=== PATIENT | female | born 1945 | race Caucasian/White ===

== ENCOUNTER 2017-10-17 08:03 | Inpatient (IN) | payer OTHER, MEDICARE ==
[~2017-10-17] VITALS: Ht 167.6 cm; Wt 68.0 kg
[2017-10-17] VITALS (67 sets, daily range): BP systolic 140–231; BP diastolic 49–115; PULSE 80–118; RESP 16–96; TEMP 96.9–105; O2SAT 93–99
--- NOTE | 2017-10-17 08:29 | PD ---
HPI Chief Complaint: Neuro Symptoms/ Deficits Time Seen by Provider: 08:18 Travel History International Travel<30 days: No Contact w/Intl Traveler<30days: No Traveled to known affect area: No History of Present Illness HPI 72-year-old female was brought in by EMS for possible stroke. Patient was last seen normal at 8:00 o'clock last night. Patient was found by her on the couch this morning moaning and not responding to her . EMS was called. Patient was transported to ED for evaluation. Patient's states the patient has history hypertension, diabetes, hyperlipidemia. Patient is a smoker. Patient does not have any history of previous TIA or CVA. No reported recent injury. Patient opened her eyes however not responding or not providing any information. PFSH Past Medical History ?: Not Social History Tobacco Use: No Allergies-Medications (Allergen,Severity, Reaction): Coded Allergies: Penicillins (Verified Allergy, Unknown, Unknown, 10/17/17) Reported Meds & Prescriptions Reported Meds & Active Scripts Active Reported Verapamil (Verapamil HCl) 120 Mg Tab 120 Mg PO BID Metformin (Metformin HCl) 1,000 Mg Tab 1,000 Mg PO BIDPC Atenolol 25 Mg Tab 25 Mg PO DAILY Losartan (Losartan Potassium) 100 Mg Tab 100 Mg PO DAILY Doxycycline Hyclate 100 Mg Cap 100 Mg PO BID Review of Systems ROS Limitations: Altered Mental Status General / Constitutional: No: Fever Eyes: No: Visual changes HENT: No: Headaches Cardiovascular: No: Chest Pain or Discomfort Respiratory: No: Shortness of Breath Gastrointestinal: No: Abdominal Pain Genitourinary: No: Dysuria Musculoskeletal: No: Pain Skin: No Rash Neurologic: No: Weakness Psychiatric: No: Depression Endocrine: No: Polydipsia Hematologic/Lymphatic: No: Easy Bruising Physical Exam Narrative GENERAL: Well-nourished, well-developed patient. SKIN: Focused skin assessment warm/dry. HEAD: Normocephalic. EYES: No scleral icterus. No injection or drainage. Right pupil 1.5 mm reactive. Left pupil 1 mm nonreactive. NECK: Supple, trachea midline. No JVD or lymphadenopathy. CARDIOVASCULAR: Regular rate and rhythm without murmurs, gallops, or rubs. RESPIRATORY: Breath sounds equal bilaterally. No accessory muscle use. GASTROINTESTINAL: Abdomen soft, non-tender, nondistended. MUSCULOSKELETAL: No cyanosis, or edema. BACK: Nontender without obvious deformity. No CVA tenderness. Neurologic exam: Patient lying in bed with eyes open. Patient does not follow commands. Patient is aphasic. Patient has right-sided facial drooping. Patient has no movement on the right arm or the right leg with minimal movement of the right toes. Patient has movement on the left arm and left leg with painful stimuli. Positive Babinski right foot. Data Data Last Documented VS Vital Signs Date Time Temp Pulse Resp B/P (MAP) Pulse Ox O2 Delivery O2 Flow Rate FiO2 10/17/17 09:34 80 18 204/85 (124) 97 Room Air 10/17/17 09:30 2.00 10/17/17 08:05 97.5 Orders Orders Blood Glucose (10/17/17 08:05) Oximetry (10/17/17 08:05) Iv Access Insert/Monitor (10/17/17 08:05) Ecg Monitoring (10/17/17 08:05) Oxygen Administration (10/17/17 08:05) Complete Blood Count With Diff (10/17/17 08:05) Act Partial Throm Time (Ptt) (10/17/17 08:05) Prothrombin Time / Inr (Pt) (10/17/17 08:05) Basic Metabolic Panel (Bmp) (10/17/17 08:05) Urinalysis - C+S If Indicated (10/17/17 08:05) Electrocardiogram (10/17/17 08:18) Chest, Single Ap (10/17/17 08:18) Ct Brain W/O Iv Contrast(Rout) (10/17/17 08:18) Urinary Catheter Insert/Apply (10/17/17 08:18) Hepatic Functional Panel (10/17/17 08:05) Magnesium (Mg) (10/17/17 08:05) Phosphorus (Po4) (10/17/17 08:05) Thyroid Stimulating Hormone (10/17/17 08:05) Nicardipine Inj (Cardene Inj) (10/17/17 08:45) Aspirin Supp (Aspirin Supp) (10/17/17 09:30) Mri Brain W/O Contrast (10/17/17 09:34) Mra Brain W/O Contrast (Cow) (10/17/17 09:34) Mra Carotids W Contrast (10/17/17 09:34) Consult Neurology (10/17/17 ) Admit To Inpatient (10/17/17 ) Nih Stroke Scale - Nihss .On admission and discharge (10/17/17 09:33) Ot Request For Service (10/17/17 09:33) Activity Bed Rest (10/17/17 09:33) Nursing Bedside Swallow Assess .ONCE (10/17/17 09:33) Scd Bilateral/Knee High KIRSTEN.QSHIFT (10/17/17 09:33) Diet Npo (10/17/17 Breakfast) Hemoglobin (Hgb) A1c (10/17/17 09:33) Lipid Profile (10/18/17 06:00) Resp Oxygen Nc Stroke (10/17/17 ) ^ Hold Medication (10/17/17 09:33) Sodium Chloride 0.9% Flush (Ns Flush) (10/17/17 21:00) Sodium Chloride 0.9% Flush (Ns Flush) (10/17/17 09:45) Bedside Glucose KIRSTEN.CSUGAR (10/17/17 09:33) ^ Discontinue Insulin Orders (10/17/17 09:33) Insulin Aspart Supplemtl Scale (Novolog (10/17/17 12:00) Dextrose 50% In López (Vial) Inj (D50w (Vi (10/17/17 09:45) Glucagon Inj (Glucagon Inj) (10/17/17 09:45) Gasoline Pump Installer / Telemetry KIRSTEN.Q8H (10/17/17 09:33) Inpatient Certification (10/17/17 ) Atorvastatin (Lipitor) (10/18/17 21:00) Atorvastatin (Lipitor) (10/17/17 11:00) Admit Order (Ed Use Only) (10/17/17 09:36) ^ Fall Precautions (10/17/17 09:36) Basic Metabolic Panel (Bmp) (10/18/17 06:00) Echo 2d Comp With Doppler (10/18/17 ) Labs Laboratory Tests Test 10/17/17 08:20 10/17/17 09:00 White Blood Count 12.2 TH/MM3 Red Blood Count 4.30 MIL/MM3 Hemoglobin 13.2 GM/DL Hematocrit 39.7 % Mean Corpuscular Volume 92.2 FL Mean Corpuscular Hemoglobin 30.8 PG Mean Corpuscular Hemoglobin Concent 33.3 % Red Cell Distribution Width 12.4 % Platelet Count 313 TH/MM3 Mean Platelet Volume 8.6 FL Neutrophils (%) (Auto) 73.6 % Lymphocytes (%) (Auto) 18.6 % Monocytes (%) (Auto) 6.5 % Eosinophils (%) (Auto) 0.7 % Basophils (%) (Auto) 0.6 % Neutrophils # (Auto) 8.9 TH/MM3 Lymphocytes # (Auto) 2.3 TH/MM3 Monocytes # (Auto) 0.8 TH/MM3 Eosinophils # (Auto) 0.1 TH/MM3 Basophils # (Auto) 0.1 TH/MM3 CBC Comment DIFF FINAL Differential Comment Prothrombin Time 10.9 SEC Prothromb Time International Ratio 1.1 RATIO Activated Partial Thromboplast Time 23.4 SEC Blood Urea Nitrogen 13 MG/DL Creatinine 1.20 MG/DL Random Glucose 205 MG/DL Total Protein 7.3 GM/DL Albumin 3.7 GM/DL Calcium Level 8.7 MG/DL Phosphorus Level 3.3 MG/DL Magnesium Level 1.8 MG/DL Alkaline Phosphatase 84 U/L Aspartate Amino Transf (AST/SGOT) 33 U/L Alanine Aminotransferase (ALT/SGPT) 29 U/L Total Bilirubin 0.4 MG/DL Direct Bilirubin 0.1 MG/DL Sodium Level 128 MEQ/L Potassium Level 4.6 MEQ/L Chloride Level 94 MEQ/L Carbon Dioxide Level 24.2 MEQ/L Anion Gap 10 MEQ/L Estimat Glomerular Filtration Rate 44 ML/MIN Hemoglobin A1c 7.8 % Indirect Bilirubin 0.3 MG/DL Thyroid Stimulating Hormone 3rd Gen 3.110 uIU/ML Urine Collection Type CLEAN CATCH Urine Color YELLOW Urine Turbidity CLEAR Urine pH 7.5 Urine Specific [place] 1.014 Urine Protein TRACE mg/dL Urine Glucose (UA) 250 mg/dL Urine Ketones NEG mg/dL Urine Occult Blood TRACE Urine Nitrite NEG Urine Bilirubin NEG Urine Leukocyte Esterase NEG Urine RBC 0-3 /hpf Urine WBC 0-2 /hpf Urine Squamous Epithelial Cells 0-5 /hpf Microscopic Urinalysis Comment CULT NOT INDICATED MDM Medical Decision Making Medical Screen Exam Complete: Yes Emergency Medical Condition: Yes Interpretation(s) Last Impressions Head CT 10/17/17 0818 Signed Impressions: Service Date/Time: Tuesday, October 17, 2017 08:51 - CONCLUSION: There is asymmetric increased density involving the left MCA as compared to the right. Concern for acute thrombosis. However, no secondary signs of infarct are seen. Consider MRI for further evaluation. Mary Jane Caballero MD Chest X-Ray 10/17/17 0818 Signed Impressions: Service Date/Time: Tuesday, October 17, 2017 08:27 - CONCLUSION: Abnormal lung exam concerning for acute bronchiolitis or interstitial edema the Mary Jane Caballero MD CBC WBC 12.2. 73 neutrophil. Sodium 128. Creatinine 1.2. Random glucose 205. UA is negative. Differential Diagnosis Differential diagnosis including acute TIA, CVA. Narrative Course 72-year-old female with aphasia, right-sided weakness. Patient was found on the couch by her This morning. History hypertension, diabetes, hyperlipidemia. Patient is not a candidate for TPA. Normal saline solution 100 cc an hour. O2 2 L nasal cannula. Head of bed flat. Aspirin 300 mg suppository. Cardene drip to keep systolic blood pressure less than 200. I spoke with neurologist on-call, Dr. Vazquez. Agreed with the plan. Diagnosis Primary Impression: Acute CVA (cerebrovascular accident) Admitting Information Admitting Physician Requests: Admit Antonio Feliciano MD Oct 17, 2017 08:29
[2017-10-17] MEDS ORDERED: DOXY100C PO (08:30)
[2017-10-17 08:38] LABS: AUTOMATED NEUTROPHIL # 8.9 TH/MM3 (1.8-7.7); BASOPHIL # 0.1 TH/MM3 (0-0.2); BASOPHIL % 0.6 % (0.0-2.0); EOSINOPHIL # 0.1 TH/MM3 (0-0.4); EOSINOPHIL % 0.7 % (0.0-4.0); HEMATOCRIT 39.7 % (35.0-46.0); HEMOGLOBIN 13.2 GM/DL (11.6-15.3); LYMPH % 18.6 % (9.0-44.0); LYMPHOCYTE # 2.3 TH/MM3 (1.0-4.8); MEAN CELL VOLUME 92.2 FL (80.0-100.0); MEAN CORPUSCULAR HEMOGLOBIN 30.8 PG (27.0-34.0); MEAN CORPUSCULAR HGB CONC 33.3 % (32.0-36.0); MEAN PLATELET VOLUME 8.6 FL (7.0-11.0); MONO % 6.5 % (0.0-8.0); MONOCYTE # 0.8 TH/MM3 (0-0.9); NEUT % 73.6 % (16.0-70.0); PLATELET COUNT 313 TH/MM3 (150-450); RED CELL DISTRIBUTION WIDTH 12.4 % (11.6-17.2); WHITE BLOOD COUNT 12.2 TH/MM3 (4.0-11.0)
--- NOTE | 2017-10-17 08:40 | RADRPT ---
EXAM DATE/TIME: 10/17/2017 08:27 [facility] COMPARISON: No previous studies available for comparison. INDICATIONS : Stoke symptoms, short of breath MEDICAL HISTORY : None. SURGICAL HISTORY : None. ENCOUNTER: Initial ACUITY: 1 day PAIN SCORE: Non-responsive. LOCATION: Bilateral chest FINDINGS: There is diffuse hazy asymmetric airspace opacities identified throughout the hemithorax concerning f or acute bronchiolitis or edema. The heart size is normal. The pulmonary vasculature appears grossly normal in caliber. Osseous structures demonstrate severe scoliosis. CONCLUSION: Abnormal lung exam concerning for acute bronchiolitis or interstitial edema the Mary Jane Caballero MD on October 17, 2017 at 8:36 Board Certified Radiologist. This report was verified electronically.
[2017-10-17] MEDS ORDERED: niCARdipine INJ 25 MG in SODIUM CHLOR 0.9% 250 ML INJ 240 ML IV PRN (08:45)
[2017-10-17 08:51] LABS: ALBUMIN 3.7 GM/DL (3.4-5.0); BICARBONATE 24.2 MEQ/L (21.0-32.0); CALCIUM 8.7 MG/DL (8.5-10.1); INTERNATIONAL NORMALIZED RATIO 1.1 RATIO; MAGNESIUM 1.8 MG/DL (1.5-2.5); PROTHROMBIN TIME - PATIENT 10.9 SEC (9.8-11.6)
[2017-10-17 08:54] LABS: CREATININE 1.2 MG/DL (0.50-1.00); DIRECT BILIRUBIN ADULT 0.1 MG/DL (0.0-0.2); PHOSPHORUS 3.3 MG/DL (2.5-4.9)
[2017-10-17 08:56] LABS: INDIRECT BILIRUBIN 0.3 MG/DL (0.0-0.8); TOTAL BILIRUBIN ADULT 0.4 MG/DL (0.2-1.0); TOTAL PROTEIN 7.3 GM/DL (6.4-8.2)
--- NOTE | 2017-10-17 09:14 | RADRPT ---
EXAM DATE/TIME: 10/17/2017 08:51 [facility] COMPARISON: No previous studies available for comparison. INDICATIONS : Suspect CVA, last seen normal 20:00, non verbal gaze to left, right facial droop. RADIATION DOSE: 61.30 CTDIvol (mGy) MEDICAL HISTORY : Diabetes, HTN, smoker SURGICAL HISTORY : Non-responsive. unobtainable ENCOUNTER: Initial ACUITY: 1 day PAIN SCALE: 0/10 LOCATION: cranial TECHNIQUE: Multiple contiguous axial images were obtained of the head. Using automated exposure control and adj ustment of the mA and/or kV according to patient size, radiation dose was kept as low as reasonably a chievable to obtain optimal diagnostic quality images. DICOM format image data is available electro nically for review and comparison. FINDINGS: CEREBRUM: There is asymmetric density involving the left MCA seen on image 11. This is concerning for a left MC A infarct. The adjacent parenchyma demonstrates normal attenuation on this exam. No evidence of hypod ensity or sulcal effacement. No intra-axial or extra-axial fluid collection. No evidence of mass effe ct. POSTERIOR FOSSA: The cerebellum and brainstem are intact. The 4th ventricle is midline. The cerebellopontine angle i s unremarkable. EXTRACRANIAL: The visualized portion of the orbits is intact. Circumferential moderate left maxillary sinus mucosal thickening. SKULL: The calvaria is intact. No evidence of skull fracture. CONCLUSION: There is asymmetric increased density involving the left MCA as compared to the right . Concern for acute thrombosis. However, no secondary signs of infarct are seen. Consider MRI for fur ther evaluation. Mary Jane Caballero MD on October 17, 2017 at 9:08 Board Certified Radiologist. This report was verified electronically.
[2017-10-17] MEDS ORDERED: LOSA100T PO (09:15)
[2017-10-17] MEDS ORDERED: ATEN25TA PO (09:15)
[2017-10-17] MEDS ORDERED: METF1000 PO (09:15)
[2017-10-17] MEDS ORDERED: VERA120T3 PO (09:15)
[2017-10-17 09:21] LABS: BILIRUBIN, URINE NEG (NEG); BLOOD, URINE TRACE (NEG); GLUCOSE,URINE 250 mg/dL (NEG); KETONE, URINE NEG (NEG); NITRITE,URINE NEG (NEG); PH, URINE 7.5 (5.0-8.5); URINE LEUKOCYTE ESTERASE NEG (NEG)
[2017-10-17 09:27] LABS: URINE COLOR YELLOW (YELLW/STRAW)
[2017-10-17 09:28] LABS: RBC, URINE 0-3 /hpf (0-3); SQUAMOUS EPITHELIAL CELL URINE 0-5 /hpf (0-5); WBC, URINE 0-2 /hpf (0-5)
[2017-10-17] MEDS ORDERED: ASPIRIN 300 MG SUPP RECTAL ONE (09:30)
[2017-10-17] MEDS ORDERED: SODIUM CHLORIDE 0.9% FLUSH 10 ML FLUSH IV FLUSH PRN (09:45)
[2017-10-17] MEDS ORDERED: DEXTROSE 50% IN WATER 50 ML VIAL(D50) IV PUSH PRN (09:45)
[2017-10-17] MEDS ORDERED: GLUCAGON 1 MG/ML VIAL OTHER PRN (09:45)
--- NOTE | 2017-10-17 10:36 | HHI.HP ---
HPI Service [facility] Primary Care Physician Unknown Admission Diagnosis acute CVA Diagnoses: Chief Complaint: Moaning, not responsive Travel History International Travel<30 Days: No Contact w/Intl Traveler <30 Da: No Traveled to Known Affected Are: No History of Present Illness 72-year-old white female being admitted for suspected stroke. Patient was in her usual state of health until sometime this morning when her found her lying on the couch being almost motionless, slouched in a reclining position. He attempted to talk to her and stimulate her but she only moan in response. He says at the time she was moving around both of her legs but did not notice much movement in her arms. She did not verbalize any coherent speech nor follow any commands. Says he called the ambulance. Prior to this he says the patient denies any of these symptoms at all. She was last noted to be normal last night prior to going to bed. For the last week or so she has had a "head cold" and saw urgent care yesterday and had taken a prescribed dose of some antibiotic last night. Says that her sugars were noted to be in the 400s yesterday at the urgent care, but usually are in the 120s in the morning. Past medical history includes diabetes which is apparently controlled in the 100s. Family history significant for sister having cervical cancer. Social history significant that the patient has been smoking for about 20 years. Lives with her . Review of Systems Except as stated in HPI: all other systems reviewed are Neg Past Family Social History Allergies: Coded Allergies: Penicillins (Verified Allergy, Unknown, Unknown, 10/17/17) Physical Exam Vital Signs Vital Signs Date Time Temp Pulse Resp B/P (MAP) Pulse Ox O2 Delivery O2 Flow Rate FiO2 10/17/17 09:44 84 16 195/85 (121) 97 Nasal Cannula 2.00 10/17/17 09:39 84 16 198/89 (125) 97 Nasal Cannula 2.00 10/17/17 09:34 80 18 204/85 (124) 97 Room Air 10/17/17 09:30 80 18 188/78 (114) 97 Nasal Cannula 2.00 10/17/17 09:20 83 223/115 10/17/17 09:10 91 16 223/115 (151) 97 Nasal Cannula 2.00 10/17/17 08:15 96 18 231/98 (142) 93 Room Air 10/17/17 08:05 94 Room Air 10/17/17 08:05 94 Room Air 10/17/17 08:05 97.5 92 16 220/105 (143) 94 Physical Exam VS: afebrile GENERAL: lying in bed, moaning in distress SKIN: Warm and dry. EYES: No scleral icterus. No injection or drainage. Pupils reactive, symmetrical. ENT: No nasal bleeding or discharge. Mucous membranes pink and moist. CARDIOVASCULAR: Regular rate and rhythm. no murmurs RESPIRATORY: No accessory muscle use. Clear to auscultation. Breath sounds equal bilaterally. GASTROINTESTINAL: Abdomen soft, non-tender, nondistended. Extremities: No clubbing, cyanosis, or edema. No obvious deformities. MUSCULOSKELETAL: adequate muscle bulk and tone for age and habitus; NEUROLOGICAL: Not moving right lower extremity or right upper extremity, has a very minimal right-sided facial droop. Only able to follow very basic command of squeezing hand with left hand; this spontaneously moving her left upper and left lower extremity. Opens eyes to name but does not follow nor track. PSYCHIATRIC: Unable to assess due to neurological impairment Laboratory Laboratory Tests Test 10/17/17 08:20 10/17/17 09:00 White Blood Count 12.2 Red Blood Count 4.30 Hemoglobin 13.2 Hematocrit 39.7 Mean Corpuscular Volume 92.2 Mean Corpuscular Hemoglobin 30.8 Mean Corpuscular Hemoglobin Concent 33.3 Red Cell Distribution Width 12.4 Platelet Count 313 Mean Platelet Volume 8.6 Neutrophils (%) (Auto) 73.6 Lymphocytes (%) (Auto) 18.6 Monocytes (%) (Auto) 6.5 Eosinophils (%) (Auto) 0.7 Basophils (%) (Auto) 0.6 Neutrophils # (Auto) 8.9 Lymphocytes # (Auto) 2.3 Monocytes # (Auto) 0.8 Eosinophils # (Auto) 0.1 Basophils # (Auto) 0.1 CBC Comment DIFF FINAL Differential Comment Prothrombin Time 10.9 Prothromb Time International Ratio 1.1 Activated Partial Thromboplast Time 23.4 Blood Urea Nitrogen 13 Creatinine 1.20 Random Glucose 205 Total Protein 7.3 Albumin 3.7 Calcium Level 8.7 Phosphorus Level 3.3 Magnesium Level 1.8 Alkaline Phosphatase 84 Aspartate Amino Transf (AST/SGOT) 33 Alanine Aminotransferase (ALT/SGPT) 29 Total Bilirubin 0.4 Direct Bilirubin 0.1 Sodium Level 128 Potassium Level 4.6 Chloride Level 94 Carbon Dioxide Level 24.2 Anion Gap 10 Estimat Glomerular Filtration Rate 44 Indirect Bilirubin 0.3 Thyroid Stimulating Hormone 3rd Gen 3.110 Urine Collection Type CLEAN CATCH Urine Color YELLOW Urine Turbidity CLEAR Urine pH 7.5 Urine Specific [employer] 1.014 Urine Protein TRACE Urine Glucose (UA) 250 Urine Ketones NEG Urine Occult Blood TRACE Urine Nitrite NEG Urine Bilirubin NEG Urine Leukocyte Esterase NEG Urine RBC 0-3 Urine WBC 0-2 Urine Squamous Epithelial Cells 0-5 Microscopic Urinalysis Comment CULT NOT INDICATED Result Diagram: 10/17/1781910/17/17819 Imaging Last Impressions Head CT 10/17/17817 Signed Impressions: Service Date/Time: Tuesday, October 17, 2017 08:51 - CONCLUSION: There is asymmetric increased density involving the left MCA as compared to the right. Concern for acute thrombosis. However, no secondary signs of infarct are seen. Consider MRI for further evaluation. Mary Jane Caballero MD Chest X-Ray 10/17/17817 Signed Impressions: Service Date/Time: Tuesday, October 17, 2017 08:27 - CONCLUSION: Abnormal lung exam concerning for acute bronchiolitis or interstitial edema the MD Al Rush VTE Risk Assessment Caprini VTE Risk Assessment: Mod/High Risk (score >= 2) Caprini Risk Assessment Model Point Value = 1 Point Value = 2 Point Value = 3 Point Value = 5 Age 41-60 Minor surgery BMI > 25 kg/m2 Swollen legs Varicose veins or History of unexplained or recurrent spontaneous Oral contraceptives or hormone replacement Sepsis (< 1 month) Serious lung disease, including pneumonia (< 1 month) Abnormal pulmonary function Acute myocardial infarction Congestive heart failure (< 1 month) History of inflammatory bowel disease Medical patient at bed rest Age 61-74 Arthroscopic surgery Major open surgery (> 45 min) Laparoscopic surgery (> 45 min) Malignancy Confined to bed (> 72 hours) Immobilizing plaster cast Central venous access Age >= 75 History of VTE Family history of VTE Factor V Leiden Prothrombin 51189H Lupus anticoagulant Anticardiolipin antibodies Elevated serum homocysteine Heparin-induced thrombocytopenia Other congenital or acquired thrombophilia Stroke (< 1 month) Elective arthroplasty Hip, pelvis, or leg fracture Acute spinal cord injury (< 1 month) Prophylaxis Regimen Total Risk Factor Score Risk Level Prophylaxis Regimen 0-1 Low Early ambulation 2 Moderate Order ONE of the following: *Sequential Compression Device (SCD) *Heparin 5000 units SQ BID 3-4 Higher Order ONE of the following medications: *Heparin 5000 units SQ TID *Enoxaparin/Lovenox 40 mg SQ daily (WT < 150 kg, CrCl > 30 mL/min) *Enoxaparin/Lovenox 30 mg SQ daily (WT < 150 kg, CrCl > 10-29 mL/min) *Enoxaparin/Lovenox 30 mg SQ BID (WT < 150 kg, CrCl > 30 mL/min) AND/OR *Sequential Compression Device (SCD) 5 or more Highest Order ONE of the following medications: *Heparin 5000 units SQ TID (Preferred with Epidurals) *Enoxaparin/Lovenox 40 mg SQ daily (WT < 150 kg, CrCl > 30 mL/min) *Enoxaparin/Lovenox 30 mg SQ daily (WT < 150 kg, CrCl > 10-29 mL/min) *Enoxaparin/Lovenox 30 mg SQ BID (WT < 150 kg, CrCl > 30 mL/min) AND *Sequential Compression Device (SCD) Assessment and Plan Assessment and Plan 72-year-old white female being admitted for suspected stroke Suspected stroke - CT showing possible stroke, MRI and MRA ordered per neurology recs - fall precautions, permissive HTN, CTA carotids, and echo - rectal aspirin - bedside swallow assessment; pt/st/ot eval - pending EKG - I independently reviewed EKG and see sinus rhythm - telemetry, maybe a candidate for holter monitor to evaluate for any afib head cold - I independently reviewed chest x-ray and see very minimal faint infiltrates over the interstitium; continue doxycycline via IV for now; if procalcitonin is neg; stopping abx. DM - LDSS SCDs Discussed assessment and plan with at length, informed him that the patient may not be able to tolerate by mouth intake for the next 24 hours, and if she has prolonged recovery from a by mouth intake, we will proceed with a nasogastric feeding tube. Physician Certification 2 Midnight Certification Type: Admission for Inpatient Services Order for Inpatient Services The services are ordered in accordance with Medicare regulations or non- Medicare payer requirements, as applicable. In the case of services not specified as inpatient-only, they are appropriately provided as inpatient services in accordance with the 2-midnight benchmark. Estimated LOS (days): 3 3 days is the estimated time the patient will need to remain in the hospital, assuming treatment plan goals are met and no additional complications. Post-Hospital Plan: Not yet determined Lei Arreguin MD Oct 17, 2017 10:36
[2017-10-17] MEDS ORDERED: ATORVASTATIN 40 MG TAB PO ONE (11:00)
[2017-10-17] MEDS ORDERED: CHLORHEXIDINE GLUCONATE 2 % 1 PACK (2 CLOTHS)(extra cloths) TOPICAL PRN (11:00)
[2017-10-17] MEDS ORDERED: GADOBENATE DIM PF 529 MG/ML 20ML VIAL (for RAD MRI) IV ONE (12:02)
--- NOTE | 2017-10-17 12:03 | RADRPT ---
EXAM DATE/TIME: 10/17/2017 11:17 [facility] COMPARISON: CT BRAIN W/O CONTRAST, October 17, 2017, 8:51. INDICATIONS : Unresponsive. MEDICAL HISTORY : Hypertension. Diabetes mellitus type 2. CVA. SURGICAL HISTORY : Cataract. ENCOUNTER: Initial ACUITY: 1 day PAIN SCORE: 0/10 LOCATION: cranial TECHNIQUE: Multiplanar, multisequence MRI of the brain was performed without contrast. FINDINGS: The calvarium appears intact. There is moderate motion artifact. The patient demonstrates midline str uctures and major anatomic landmarks correctly situated without intracranial hemorrhage or extracereb ral defect and no mass effect. There is deep white matter microvascular ischemic demyelinizati on and there is an acute infarct in the distribution of the left middle cerebral artery with diffusio n abnormality and mild T2-weighted flair abnormality. CONCLUSION: Acute left MCA stroke Raj Reinoso MD on October 17, 2017 at 11:58 Board Certified Radiologist. This report was verified electronically.
[2017-10-17] MEDS: DOXYCYCLINE INJ 100 MG in SODIUM CHLORIDE 0.9% INJ 100 ML IV SCH ×2 (12:05→23:39)
[2017-10-17] MEDS: INSULIN ASPART SUPPLEMENTAL SCALE SQ SCH ×3 (12:06→20:55)
[2017-10-17] MEDS: SODIUM CHLOR 0.9% 1000 ML INJ 1,000 ML IV SCH ×2 (12:06→23:14)
--- NOTE | 2017-10-17 12:14 | RADRPT ---
EXAM DATE/TIME: 10/17/2017 11:17 [facility] COMPARISON: No previous studies available for comparison. INDICATIONS : Unresponsive. MEDICAL HISTORY : Hypertension. Diabetes mellitus type 2. CVA. SURGICAL HISTORY : Cataract. ENCOUNTER: Initial ACUITY: 1 day PAIN SCORE: 0/10 LOCATION: cranial Please note a normal MRA of the brain does not entirely exclude the possibility of a small aneurysm, nor the possibility of distal intracranial vessel disease. TECHNIQUE: 3D time of flight MRA was performed. Source images, multiplanar STS MIP, and 3D volume MIP reconstru ctions were reviewed. FINDINGS: There is complete occlusion of the left MCA. The remainder of the cerebral vasculature is intact. No evidence of aneurysm. CONCLUSION: Complete occlusion of the left MCA corresponding with the hyperdense left MCA seen on comparison CT. Mary Jane Caballero MD on October 17, 2017 at 12:10 Board Certified Radiologist. This report was verified electronically.
--- NOTE | 2017-10-17 12:18 | RADRPT ---
EXAM DATE/TIME: 10/17/2017 11:17 [facility] COMPARISON: MRA BRAIN W/O CONTRAST, October 17, 2017, 11:17. INDICATIONS : Unresponsive. CONTRAST: 15 cc Multihance (gadobenate) IV MEDICAL HISTORY : Hypertension. Diabetes mellitus type 2. CVA. SURGICAL HISTORY : Cataract. ENCOUNTER: Initial ACUITY: 1 day PAIN SCORE: 0/10 LOCATION: neck Percent stenosis is calculated using the diameter of the stenotic region over the diameter of the nor mal distal internal carotid artery. TECHNIQUE: Bolus infused MRA of the extracranial circulation was performed using a neurovascular coil. Post pro cessing was performed including rotating subvolume maximum intensity projections of each carotid paul ry, rotating full volume maximum intensity projections of both carotid arteries, sagittal and coronal sliding thin slab reformations of each carotid artery, and left oblique sliding thin slab reformatio n through the aortic arch to include the origin of the arch branch vessels. FINDINGS: The aortic arch appears normal with origin of great vessels normal other than poor visualization init ial segment of the left vertebral which is dominant. Left carotid reveals some mild atherosclerosis post erior soft at the bulb without stenosis. The right carotid reveals a pH high grade stenosis at the origin of the internal carotid. Intracavernous portions of the internal carotids a re poorly visualized however there is flow in these which they appear somewhat ectatic however intrac ranially there is absence of flow into the left middle cerebral artery. CONCLUSION: Mild posterior soft plaque in left carotid bulb non-stenotic. Slit like, pinch stenosis at the origin of the right internal carotid artery. Poor visualization origin of the dominant left vertebral paul ry . Bilateral internal carotids in the siphon are somewhat irregu lar and poorly visualized however intracranially there is absence of flow in the left middle cerebral artery. Raj Reinoso MD on October 17, 2017 at 12:09 Board Certified Radiologist. This report was verified electronically.
--- NOTE | 2017-10-17 16:14 | MB ---
cc: DAVID CULLEN M.D. DATE OF CONSULTATION: 10/17/2017. REASON FOR CONSULTATION: Stroke. HISTORY OF PRESENT ILLNESS: This patient is a 72-year-old woman admitted with a stroke some time this morning. 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 She was brought in. She was not following commands. She went to bed fine. She was yesterday in an urgent care for respiratory issue for sinus congestion. She had a CT in the emergency department and it shows increased density over the left middle cerebral artery concerning for two thromboses. The time of onset is unknown. The patient is not deemed a candidate for tPA unfortunately. PAST MEDICAL HISTORY: She has a past medical history of: 1. Hypertension. 2. Diabetes. 3. Hyperlipidemia. ALLERGIES: 1. PENICILLIN. HOME MEDICATIONS: 1. Verapamil. 2. Metformin. 3. Atenolol. 4. Losartan. 5. Doxycycline. SOCIAL HISTORY: . Lives with her . Apparently is a smoker. PHYSICAL EXAMINATION: VITAL SIGNS: On exam, vital signs are temperature 97.4, pulse 92, respiratory rate between 18 to 33, blood pressure 175/81, satting at 98% on two liters. NECK: The neck is supple. No appreciable bruits. HEART: Regular but there seems to be a 3/6 murmur best heard over the right sternum. NEUROLOGICAL EXAMINATION: On neurological exam, she is somnolent, arousable. She keeps her eyes closed. When I open her eyes, her pupils are reactive. There is an attenuated right nasolabial fold. She will not stick her tongue out. She does have right hemiplegia right arm and leg with plastic tone. Left arm she squeezes hand and lets go on command but does not wiggle her toes. The right toe is upgoing. DTRs are brisker on the right than the left. She does not withdraw to pain in the right arm or the right leg. Gait could not be assessed, nor cerebellar. LABS: Reviewed: White count 12.2, neutrophils 73.6. Coagulation panel: PT is 23.4. Chemistries: Sodium 128, creatinine 1.2, GFR 44, glucose 205, hemoglobin A1c is pending. Lipids are pending. Procalcitonin is pending. TSH is 3.110. Liver functions are normal. Urine: 250 glucose. Nasal screen MRSA is pending. IMAGING STUDIES: MRI brain does confirm an acute left middle cerebral artery stroke wiyot of [place]. MRA shows complete occlusion of the left middle cerebral artery corresponding to the hyperdense left middle cerebral artery sign on CT. Her neck MRA shows mild posterior soft plaque. The left carotid bulb is not stenotic. Slit-like pinched stenosis at the origin of the right internal carotid. Poor visualization of the left vertebral artery. Bilateral internal carotids ____ are somewhat irregular and poorly visualized; however, intracranially there is absence of flow in the left middle cerebral artery. Chest x-ray shows abnormal lung exam concerning for acute bronchiolitis or interstitial edema. IMPRESSION: A 72-year-old woman with an acute left middle cerebral artery infarct. Unfortunately the time of onset is unknown and could not be a candidate for tPA. She already had changes on her CT. RECOMMENDATIONS: 1. Recommend starting her on aspirin 300 milligrams OH. 2. Keep her NPO. 3. Will need physical therapy and occupational therapy and speech therapy. 4. Keep her on fluids. 5. Permissible hypertension. Treat should her blood pressure go over 200 systolic or 100 diastolic. 6. An echocardiogram should be obtained. 7. SCDs for DVT prevention. 8. She can have subcutaneous Lovenox. 9. Monitor her for any dysrhythmia. 10. I will defer to the primary for her chest x-ray abnormalities. 11. Also I will get a hemoglobin A1c and a lipid panel. 12. Will get a CT in the morning just to make sure that there is no increased edema with possible herniation. 13. Maintain her in the intensive care unit. I did discussed with her we will see how she does in the next 48 hours will be critical. She may need a feeding tube. She will also need a rehab consult. Continue current care as outlined. MD FABIAN Mccurdy/JENNIFER /2:42 PM /3:55 PM
[2017-10-17] MEDS: niCARdipine INJ 25 MG in SODIUM CHLOR 0.9% 250 ML INJ 250 ML IV PRN (20:54)
[2017-10-17] MEDS: SODIUM CHLORIDE 0.9% FLUSH 10 ML FLUSH IV FLUSH SCH (20:55)
[2017-10-18] VITALS (82 sets, daily range): BP systolic 150–205; BP diastolic 63–101; PULSE 108–132; RESP 19–53; TEMP 97.9–99.2; O2SAT 94–99
[2017-10-18] MEDS ORDERED: PROCHLORPERAZINE INJ 10 MG/2 ML VIAL IV PUSH PRN (00:45)
[2017-10-18] MEDS ORDERED: ONDANSETRON HCL 4 MG/2 ML VIAL IV PUSH PRN (00:45)
[2017-10-18] MEDS: CHLORHEXIDINE GLUCONATE 2 % 1 PACK (2 CLOTHS)(taper/protocol) TOPICAL SCH (04:00)
[2017-10-18 06:44] LABS: AUTOMATED NEUTROPHIL # 21.3 TH/MM3 (1.8-7.7); BASOPHIL % 0.2 % (0.0-2.0); HEMATOCRIT 39.8 % (35.0-46.0); HEMOGLOBIN 13.2 GM/DL (11.6-15.3); LYMPH % 5.5 % (9.0-44.0); LYMPHOCYTE # 1.3 TH/MM3 (1.0-4.8); MEAN CELL VOLUME 91.4 FL (80.0-100.0); MEAN CORPUSCULAR HEMOGLOBIN 30.3 PG (27.0-34.0); MEAN CORPUSCULAR HGB CONC 33.1 % (32.0-36.0); MEAN PLATELET VOLUME 8.8 FL (7.0-11.0); MONO % 3.7 % (0.0-8.0); MONOCYTE # 0.9 TH/MM3 (0-0.9); NEUT % 90.6 % (16.0-70.0); PLATELET COUNT 322 TH/MM3 (150-450); RED BLOOD COUNT 4.35 MIL/MM3 (4.00-5.30); RED CELL DISTRIBUTION WIDTH 12.3 % (11.6-17.2); WHITE BLOOD COUNT 23.5 TH/MM3 (4.0-11.0)
[2017-10-18 07:26] LABS: CALCIUM 8.7 MG/DL (8.5-10.1)
[2017-10-18 07:47] LABS: BICARBONATE 25.6 MEQ/L (21.0-32.0); CREATININE 0.75 MG/DL (0.50-1.00)
[2017-10-18] MEDS: SODIUM CHLORIDE 0.9% FLUSH 10 ML FLUSH IV FLUSH SCH ×2 (08:25→21:00)
[2017-10-18] MEDS: INSULIN ASPART SUPPLEMENTAL SCALE SQ SCH ×4 (08:25→21:34)
--- NOTE | 2017-10-18 09:33 | RADRPT ---
EXAM DATE/TIME: 10/18/2017 09:08 [facility] COMPARISON: CT BRAIN W/O CONTRAST, October 17, 2017, 8:51. INDICATIONS : 24 hour follow up, CVA RADIATION DOSE: 66.67 CTDIvol (mGy) ; Tabletop CT Head MEDICAL HISTORY : Hypertension. Diabetes, smoker SURGICAL HISTORY : None. ENCOUNTER: Initial ACUITY: 2 days PAIN SCALE: Non-responsive LOCATION: cranial TECHNIQUE: Multiple contiguous axial images were obtained of the head. Using automated exposure control and adj ustment of the mA and/or kV according to patient size, radiation dose was kept as low as reasonably a chievable to obtain optimal diagnostic quality images. DICOM format image data is available electro nically for review and comparison. FINDINGS: CEREBRUM: There is a large area of decreased attenuation, loss of baum-white matter differentiation and sulcal effacement involving the left temporal lobe, parietal lobe secondary to a large left MCA infarct. The re is no midline shift. POSTERIOR FOSSA: The cerebellum and brainstem are intact. The 4th ventricle is midline. The cerebellopontine angle i s unremarkable. EXTRACRANIAL: The visualized portion of the orbits is intact. SKULL: The calvaria is intact. No evidence of skull fracture. CONCLUSION: Large area of evolving infarct involving the left MCA territory. There is diffuse sulcal effacement a djacent to the area of infarct. No evidence of effacement of the ventricles or midline shift.. Mary Jane Caballero MD on October 18, 2017 at 9:28 Board Certified Radiologist. This report was verified electronically.
[2017-10-18] MEDS: SODIUM CHLOR 0.9% 1000 ML INJ 1,000 ML IV SCH ×2 (10:20→22:15)
--- NOTE | 2017-10-18 10:38 | ECHRPT ---
Indication: STROKE CONCLUSIONS Normal left ventricular size. Moderate concentric left ventricular hypertrophy. The left ventricular systolic function is hyperdynamic with an estimated ejection fraction in the ra nge of 60- 65%. Mitral annular calcification is present. Mild thickening of the mitral valve leaflets. Aortic valve sclerosis is present. Mild thickening of the aortic valve leaflets. BP: / HR: Rhythm: MEASUREMENTS (Male / Female) Normal Values Technical Quality: 2D ECHO LV Systolic Diameter PLAX 2.9 cm IVS Diastolic Thickness 1.5 cm 0.6 - 1.0 / 0.6 - 0.9 cm LVPW Diastolic Thickness 0.7 cm 0.6 - 1.0 / 0.6 - 0.9 cm RV Internal Dim ED PLAX 1.9 cm LVOT Diameter 1.7 cm LA Systolic Diameter LX 2.9 cm 3.0 - 4.0 / 2.7 - 3.8 cm DOPPLER AV Peak Velocity 254.0 cm/s AV Peak Gradient 25.8 mmHg AV Mean Gradient 19.0 mmHg AV Velocity Time Integral 50.0 cm LVOT Peak Velocity 143.0 cm/s LVOT Peak Gradient 8.2 mmHg LVOT Velocity Time Integral 28.2 cm AV Area Cont Eq vti 1.3 cm AV Area Cont Eq pk 1.3 cm Mitral E Point Velocity 177.0 cm/s TR Peak Velocity 167.0 cm/s TR Peak Gradient 11.2 mmHg FINDINGS LEFT VENTRICLE Normal left ventricular size. Moderate concentric left ventricular hypertrophy. The left ventricular systolic function is hyperdynamic with an estimated ejection fraction in the ra nge of 60- 65%. RIGHT VENTRICLE Normal right ventricular size and systolic function. LEFT ATRIUM The left atrial size is normal. RIGHT ATRIUM The right atrial size is normal. ATRIAL SEPTUM Normal atrial septal thickness without atrial level shunting by limited color doppler interrogation. AORTA The aortic root and proximal ascending aorta are normal in size on limited imaging. MITRAL VALVE Mitral annular calcification is present. Mild thickening of the mitral valve leaflets. AORTIC VALVE Aortic valve sclerosis is present. Mild thickening of the aortic valve leaflets. TRICUSPID VALVE Structurally normal tricuspid valve. No tricuspid valve stenosis or regurgitation. PULMONARY VALVE The pulmonary valve is not well visualized. VESSELS The inferior vena cava is normal in size. PERICARDIUM No pericardial effusion. Annamaria Avery MD (Electronically Signed) Final Date:18 October 2017 10:37
--- NOTE | 2017-10-18 10:41 | HHI.PR ---
Subjective Remarks Nursing denies any deterioration in last night. She did have some vomiting yesterday afternoon. Repeat head CT was obtained this morning, shows no bleeding, shows evolving infarct. MRI showing left MCA stroke. Objective Vital Signs Date Time Temp Pulse Resp B/P (MAP) Pulse Ox O2 Delivery O2 Flow Rate FiO2 10/18/17 10:09 108 20 179/79 (112) 98 10/18/17 10:00 108 10/18/17 09:16 124 23 188/101 (130) 98 10/18/17 09:01 110 21 166/72 (103) 97 10/18/17 09:00 110 21 97 10/18/17 08:46 116 23 178/78 (111) 98 10/18/17 08:31 114 23 171/63 (99) 98 10/18/17 08:16 118 27 179/77 (111) 98 10/18/17 08:01 124 35 191/82 (118) 99 10/18/17 08:00 116 28 97 10/18/17 08:00 122 10/18/17 07:46 112 24 164/73 (103) 96 10/18/17 07:31 110 22 162/70 (100) 97 10/18/17 07:16 114 23 180/75 (110) 98 10/18/17 07:01 120 25 186/77 (113) 97 10/18/17 07:00 122 29 98 10/18/17 06:16 110 21 175/75 (108) 97 10/18/17 06:01 112 25 181/74 (109) 97 10/18/17 06:00 111 10/18/17 06:00 112 175/75 10/18/17 05:46 112 28 169/70 (103) 97 10/18/17 05:31 112 27 150/68 (95) 97 10/18/17 05:16 108 53 157/66 (96) 96 10/18/17 05:01 108 21 154/65 (94) 96 10/18/17 05:00 112 10/18/17 04:46 108 22 158/64 (95) 96 10/18/17 04:31 108 20 155/66 (95) 96 10/18/17 04:16 108 46 165/65 (98) 96 10/18/17 04:00 98.5 120 25 193/78 (116) 97 10/18/17 04:00 117 10/18/17 03:45 114 22 188/77 (114) 97 10/18/17 03:30 120 21 199/82 (121) 98 10/18/17 03:15 108 21 181/69 (106) 96 10/18/17 03:00 108 10/18/17 03:00 108 23 184/76 (112) 96 10/18/17 02:45 116 32 205/83 (123) 97 10/18/17 02:30 112 22 190/76 (114) 96 10/18/17 02:15 112 25 202/82 (122) 97 10/18/17 02:00 112 10/18/17 02:00 112 22 202/82 (122) 97 10/18/17 01:45 122 40 205/88 (127) 98 10/18/17 01:30 114 24 200/78 (118) 96 10/18/17 01:15 118 31 187/83 (117) 97 10/18/17 01:00 108 10/18/17 01:00 108 21 179/74 (109) 97 10/18/17 00:45 108 21 182/78 (112) 96 10/18/17 00:30 114 22 190/81 (117) 98 10/18/17 00:15 130 27 201/84 (123) 97 10/18/17 00:00 116 10/17/17 23:00 115 10/17/17 23:00 116 31 190/77 (114) 97 10/17/17 22:45 110 25 190/84 (119) 96 10/17/17 22:30 112 22 183/72 (109) 96 10/17/17 22:15 112 30 178/73 (108) 96 10/17/17 22:00 114 23 171/107 (128) 96 10/17/17 22:00 116 10/17/17 21:45 114 22 179/68 (105) 97 10/17/17 21:30 110 22 178/69 (105) 96 10/17/17 21:15 114 24 171/74 (106) 96 10/17/17 21:00 111 10/17/17 21:00 118 27 169/72 (104) 97 10/17/17 20:54 113 165/80 10/17/17 20:45 114 24 165/80 (108) 96 10/17/17 20:30 112 24 154/78 (103) 96 10/17/17 20:30 96 21 10/17/17 20:15 110 23 169/64 (99) 96 10/17/17 20:00 105.0 112 32 163/76 (105) 95 10/17/17 19:45 106 22 181/79 (113) 95 10/17/17 19:30 108 24 94 10/17/17 19:15 104 23 179/75 (109) 94 10/17/17 19:00 106 23 181/73 (109) 93 10/17/17 19:00 105 10/17/17 18:00 100 23 173/77 (109) 95 10/17/17 17:50 104 10/17/17 17:45 100 22 169/69 (102) 97 10/17/17 17:30 102 23 192/87 (122) 97 10/17/17 17:15 102 22 161/69 (99) 96 10/17/17 17:00 104 23 167/74 (105) 97 10/17/17 16:45 104 24 167/70 (102) 96 10/17/17 16:30 100 24 172/67 (102) 96 10/17/17 16:15 100 96 172/76 (108) 96 10/17/17 16:00 97.9 98 25 176/72 (106) 97 10/17/17 15:15 92 24 176/72 (106) 96 10/17/17 15:15 92 24 176/72 (106) 96 10/17/17 15:00 96 10/17/17 15:00 96 25 173/73 (106) 98 10/17/17 14:45 92 23 178/70 (106) 98 10/17/17 14:30 92 35 172/70 (104) 98 10/17/17 14:15 92 10/17/17 14:15 92 23 173/72 (105) 98 10/17/17 14:00 92 10/17/17 14:00 92 33 175/81 (112) 98 10/17/17 13:45 90 10/17/17 13:45 90 24 174/67 (102) 97 10/17/17 13:30 96 10/17/17 13:30 96 26 183/73 (109) 97 10/17/17 13:15 92 25 177/66 (103) 98 10/17/17 13:15 92 10/17/17 13:00 96 25 193/76 (115) 98 10/17/17 13:00 96 10/17/17 12:59 96 23 185/68 (107) 96 10/17/17 12:59 96 10/17/17 12:56 96 10/17/17 12:56 96 25 190/75 (113) 96 10/17/17 12:51 193/76 (115) 97 10/17/17 12:46 102 33 186/78 (114) 97 10/17/17 12:46 102 10/17/17 12:45 106 31 97 10/17/17 12:41 108 10/17/17 12:41 108 38 172/77 (108) 99 10/17/17 12:36 96 10/17/17 12:36 96 23 191/74 (113) 96 10/17/17 12:36 96 23 191/74 (113) 96 10/17/17 12:31 100 10/17/17 12:31 100 19 174/76 (108) 96 10/17/17 12:26 94 10/17/17 12:26 94 19 171/62 (98) 96 10/17/17 12:21 92 10/17/17 12:21 92 20 177/72 (107) 96 10/17/17 12:16 90 19 172/67 (102) 96 10/17/17 12:16 90 10/17/17 12:10 90 18 177/72 (107) 96 10/17/17 12:10 90 10/17/17 12:05 86 10/17/17 12:05 86 19 183/65 (104) 10/17/17 12:00 97.4 183/60 (101) 10/17/17 11:54 88 10/17/17 11:52 88 10/17/17 11:43 156/64 (94) 10/17/17 11:41 145/49 (81) 10/17/17 11:38 169/70 (103) 10/17/17 11:31 152/59 (90) 10/17/17 11:00 96.9 93 140/69 (92) 94 I/O 10/17/17 10/17/17 10/17/17 10/18/17 10/18/17 10/18/17 07:00 15:00 23:00 07:00 15:00 23:00 Intake Total 100 ml 553 ml 1303 ml Output Total 1350 ml 1975 ml Balance 100 ml -797 ml -672 ml Intake Oral 0 ml IV Total 100 ml 553 ml 1303 ml Output Urine Total 1350 ml 1975 ml # Bowel Movements 0 Result Diagram: 10/18/17 0550 10/18/17 0550 Objective Remarks Patient is not consistently following commands. We'll squeeze her left hand but will not release. Does not move right upper and lower extremity. Is not moaning today like she was yesterday. Appears to be sleeping as she is snoring with her mouth open. Coarse breath sounds bilaterally., Unlabored breathing. A/P Assessment and Plan 72-year-old white female being admitted for suspected stroke left MCA CVA - seen on MRI - fall precautions, permissive HTN until tonight; echo pending - rectal aspirin daily - daily pt/st/ot eval - telemetry, maybe a candidate for holter monitor to evaluate for any afib head cold - viral; procalcitonin negative; stopping doxycycline DM - LDSS. A1c id 7.8%. SCDs Discussed assessment and plan with at length, informed him the CT may show an evolving stroke or it may be showing what is known already on the MRI. No bleed noted on repeat head CT. addendum: failed speech eval; needs NG, tube placed. 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 Lei Arreguin MD Oct 18, 2017 10:41
[2017-10-18 10:43] LABS: CHOLESTEROL/ HDL RATIO 2.59 RATIO; HDL CHOLESTEROL 58.3 MG/DL (40.0-60.0)
[2017-10-18] MEDS: DOXYCYCLINE INJ 100 MG in SODIUM CHLORIDE 0.9% INJ 100 ML IV SCH (12:35)
[2017-10-18 12:51] LABS: HEMOGLOBIN A1C 7.8 % (4.3-6.0)
[2017-10-18] MEDS: niCARdipine INJ 25 MG in SODIUM CHLOR 0.9% 250 ML INJ 250 ML IV PRN (16:03)
--- NOTE | 2017-10-18 17:45 | EKG ---
Date Performed: 10/17/2017 Time Performed: 08:16:28 PTAGE: 72 years EKG: Sinus rhythm MODERATE ST DEPRESSION ABNORMAL ECG NO PREVIOUS TRACING DOCTOR: Cole Hastings Interpretating Date/Time 10/18/2017 17:44:35
--- NOTE | 2017-10-18 17:46 | RADRPT ---
EXAM DATE/TIME: 10/18/2017 17:20 [facility] COMPARISON: No previous studies available for comparison. INDICATIONS : Post procedure, NG tube placement MEDICAL HISTORY : None. SURGICAL HISTORY : None. ENCOUNTER: Subsequent ACUITY: 2 days PAIN SCORE: Non-responsive. LOCATION: Bilateral chest FINDINGS: Frontal view of the abdomen demonstrates gastric tube tip and side-port project within the stomach. The visualized lower lungs are clear. S-shaped scoliosis convex to the left in the thoracic and conv ex to the right in the lumbar spine. No dilated loops of small or large bowel. CONCLUSION: Gastric tube tip and side-port project within the stomach. Lei Kerr MD on October 18, 2017 at 17:43 Board Certified Radiologist. This report was verified electronically.
[2017-10-18] MEDS: ATORVASTATIN 40 MG TAB PO SCH (21:34)
[2017-10-19] VITALS (49 sets, daily range): BP systolic 142–198; BP diastolic 57–98; PULSE 74–132; RESP 18–44; TEMP 98.5–99.8; O2SAT 95–99
[2017-10-19] MEDS: DOXYCYCLINE INJ 100 MG in SODIUM CHLORIDE 0.9% INJ 100 ML IV SCH ×2 (00:18→13:23)
[2017-10-19] MEDS: CHLORHEXIDINE GLUCONATE 2 % 1 PACK (2 CLOTHS)(taper/protocol) TOPICAL SCH (04:00)
[2017-10-19 04:58] LABS: BASOPHIL % 0.1 % (0.0-2.0); EOSINOPHIL % 0.1 % (0.0-4.0); HEMATOCRIT 41.9 % (35.0-46.0); HEMOGLOBIN 14.4 GM/DL (11.6-15.3); LYMPH % 7.2 % (9.0-44.0); LYMPHOCYTE # 1.6 TH/MM3 (1.0-4.8); MEAN CELL VOLUME 91.3 FL (80.0-100.0); MEAN CORPUSCULAR HEMOGLOBIN 31.5 PG (27.0-34.0); MEAN CORPUSCULAR HGB CONC 34.5 % (32.0-36.0); MEAN PLATELET VOLUME 8.5 FL (7.0-11.0); MONO % 7.4 % (0.0-8.0); MONOCYTE # 1.7 TH/MM3 (0-0.9); NEUT % 85.2 % (16.0-70.0); PLATELET COUNT 324 TH/MM3 (150-450); RED BLOOD COUNT 4.59 MIL/MM3 (4.00-5.30); RED CELL DISTRIBUTION WIDTH 12.6 % (11.6-17.2); WHITE BLOOD COUNT 22.3 TH/MM3 (4.0-11.0)
[2017-10-19] MEDS: INSULIN ASPART SUPPLEMENTAL SCALE SQ SCH ×2 (08:41→13:24)
[2017-10-19] MEDS: SODIUM CHLORIDE 0.9% FLUSH 10 ML FLUSH IV FLUSH SCH ×2 (08:43→20:40)
--- NOTE | 2017-10-19 11:08 | RADRPT ---
EXAM DATE/TIME: 10/19/2017 10:36 [facility] COMPARISON: CHEST SINGLE AP, October 17, 2017, 8:27. INDICATIONS : Ng tube placement MEDICAL HISTORY : Hypertension. Diabetes, smoker SURGICAL HISTORY : None. ENCOUNTER: Subsequent ACUITY: 3 days PAIN SCORE: Non-responsive. LOCATION: chest FINDINGS: NG tube in good position. Mild dilatation ascending aorta. Lungs clearThe heart and pulmonary vascu larity are normal. CONCLUSION: Mild dilatation ascending aorta Nasogastric tube in position. Chema Campbell MD FACR on October 19, 2017 at 11:05 Board Certified Radiologist. This report was verified electronically.
[2017-10-19] MEDS: SODIUM CHLOR 0.9% 1000 ML INJ 1,000 ML IV SCH ×2 (12:29→20:39)
[2017-10-19] MEDS ORDERED: ASPIRIN 300 MG SUPP RECTAL ONE (15:00)
[2017-10-19] MEDS ORDERED: LABETALOL HCL 100 MG/20 ML VIAL IV PUSH ONE (15:00)
--- NOTE | 2017-10-19 15:07 | HHI.PR ---
Subjective Remarks Follow-up CVA. Patient seen and examined, lying in bed lethargic, does not awaken to noxious stimuli. Patient heart rate in the 130s. With NG tube and tube feedings going. TMAX 99.8. Blood pressure stable. Objective Vitals Vital Signs Date Time Temp Pulse Resp B/P (MAP) Pulse Ox O2 Delivery O2 Flow Rate FiO2 10/19/17 14:00 128 24 175/79 (111) 97 10/19/17 14:00 128 10/19/17 13:45 126 181/85 10/19/17 13:23 128 190/85 10/19/17 13:00 128 10/19/17 13:00 128 25 189/84 (119) 97 10/19/17 12:00 118 10/19/17 12:00 99.6 118 22 169/75 (106) 95 10/19/17 11:00 114 10/19/17 11:00 122 25 186/89 (121) 98 10/19/17 11:00 114 199/83 10/19/17 10:00 112 24 175/76 (109) 98 10/19/17 10:00 114 10/19/17 09:00 102 10/19/17 09:00 104 25 157/72 (100) 98 10/19/17 08:06 98 21 10/19/17 08:00 98.5 116 18 187/75 (112) 99 10/19/17 08:00 116 10/19/17 07:00 114 25 153/64 (93) 97 10/19/17 07:00 114 10/19/17 07:00 114 153/64 10/19/17 06:20 129 10/19/17 06:16 124 25 193/86 (121) 98 10/19/17 06:01 124 25 186/80 (115) 97 10/19/17 05:46 126 23 172/98 (122) 98 10/19/17 05:31 126 21 192/83 (119) 98 10/19/17 05:16 124 22 198/91 (126) 98 10/19/17 05:01 116 33 186/77 (113) 96 10/19/17 04:46 116 36 178/75 (109) 97 10/19/17 04:31 99.2 118 23 186/77 (113) 98 10/19/17 04:14 120 2/12/18 04:01 124 25 198/85 (122) 98 10/19/17 03:46 128 24 196/89 (124) 98 10/19/17 03:31 128 22 194/91 (125) 98 10/19/17 03:16 126 20 196/82 (120) 98 10/19/17 03:01 116 25 185/87 (119) 99 10/19/17 02:46 114 30 184/81 (115) 96 10/19/17 02:31 114 37 178/78 (111) 96 10/19/17 02:16 98.9 114 20 183/77 (112) 98 10/19/17 02:15 112 44 97 10/19/17 02:01 122 24 188/84 (118) 98 10/19/17 02:00 114 25 98 10/19/17 02:00 113 10/19/17 01:46 122 25 189/78 (115) 97 10/19/17 01:45 122 26 98 10/19/17 01:31 122 22 188/85 (119) 97 10/19/17 01:16 120 21 191/78 (115) 98 10/19/17 01:01 120 20 190/84 (119) 98 10/19/17 00:46 112 34 175/78 (110) 96 10/19/17 00:31 122 21 190/81 (117) 98 10/19/17 00:16 122 23 180/81 (114) 97 10/19/17 00:01 120 23 188/82 (117) 98 10/19/17 00:00 111 10/18/17 23:46 118 22 177/81 (113) 98 10/18/17 23:31 120 23 181/81 (114) 97 10/18/17 23:16 114 25 170/77 (108) 96 10/18/17 23:01 120 25 180/76 (110) 96 10/18/17 22:46 122 24 183/85 (117) 96 10/18/17 22:31 126 25 190/83 (118) 97 10/18/17 22:16 122 22 185/83 (117) 98 10/18/17 22:04 116 10/18/17 22:01 116 27 157/66 (96) 94 10/18/17 21:48 116 23 161/68 (99) 96 10/18/17 21:46 116 24 165/73 (103) 95 10/18/17 21:31 120 23 178/78 (111) 96 10/18/17 21:16 122 21 176/79 (111) 97 10/18/17 21:01 122 23 176/79 (111) 98 10/18/17 20:45 116 21 173/76 (108) 97 10/18/17 20:30 120 20 176/76 (109) 98 10/18/17 20:15 97 21 10/18/17 20:06 120 10/18/17 20:00 99.2 120 20 198/95 (129) 98 10/18/17 19:45 122 21 195/86 (122) 98 10/18/17 19:30 124 21 198/88 (124) 98 10/18/17 19:15 122 21 194/84 (120) 98 10/18/17 19:00 120 21 192/87 (122) 98 10/18/17 18:45 132 26 189/90 (123) 98 10/18/17 18:36 97 10/18/17 18:30 122 19 198/82 (120) 98 10/18/17 18:00 116 10/18/17 18:00 116 21 191/82 (118) 98 10/18/17 17:00 118 29 198/90 (126) 98 10/18/17 16:03 115 171/80 10/18/17 16:00 97.9 114 19 171/80 (110) 98 10/18/17 16:00 114 I/O 10/18/17 10/18/17 10/18/17 10/19/17 10/19/17 10/19/17 07:00 15:00 23:00 07:00 15:00 23:00 Intake Total 1303 ml 0 ml 1000 ml Output Total 1975 ml 945.0 ml 1500 ml Balance -672 ml -945.0 ml -1500 ml 1000 ml Intake Oral 0 ml 0 ml IV Total 1303 ml 1000 ml Output Urine Total 1975 ml 925 ml 1500 ml Tube Feeding Residual Discard 20.0 ml # Bowel Movements 0 0 Result Diagram: 10/19/17 0415 10/18/17 0550 Imaging Last Impressions Chest X-Ray 2/12/18 0000 Signed Impressions: Service Date/Time: Thursday, October 19, 2017 10:36 - CONCLUSION: Mild dilatation ascending aorta Nasogastric tube in position. Chema Campbell MD FACR Head CT 10/18/17 Signed Impressions: Service Date/Time: Wednesday, October 18, 2017 09:08 - CONCLUSION: Large area of evolving infarct involving the left MCA territory. There is diffuse sulcal effacement adjacent to the area of infarct. No evidence of effacement of the ventricles or midline shift.. Mary Jane Caballero MD Abdomen X-Ray 10/18/17 Signed Impressions: Service Date/Time: Wednesday, October 18, 2017 17:20 - CONCLUSION: Gastric tube tip and side-port project within the stomach. Lei Kerr MD Neck Magnetic Resonance Angiography 10/17/17933 Signed Impressions: Service Date/Time: Tuesday, October 17, 2017 11:17 - CONCLUSION: Mild posterior soft plaque in left carotid bulb non-stenotic. Slit like, pinch stenosis at the origin of the right internal carotid artery. Poor visualization origin of the dominant left vertebral artery . Bilateral internal carotids in the siphon are somewhat irregular and poorly visualized however intracranially there is absence of flow in the left middle cerebral artery. Raj Reinoso MD Head Magnetic Resonance Angiography 10/17/17933 Signed Impressions: Service Date/Time: Tuesday, October 17, 2017 11:17 - CONCLUSION: Complete occlusion of the left MCA corresponding with the hyperdense left MCA seen on comparison CT. Mary Jane Caballero MD Brain MRI 10/17/17933 Signed Impressions: Service Date/Time: Tuesday, October 17, 2017 11:17 - CONCLUSION: Acute left MCA stroke Raj Reinoso MD Objective Remarks GENERAL: Well-nourished, well-developed patient, lying in bed lethargic. On supplemental O2 SKIN: Warm and dry. No rash. HEAD: Normocephalic. Atraumatic. NG tube EYES: Pupils equal and round. No scleral icterus. No injection or drainage. ENT: No nasal bleeding or discharge. Mucous membranes pink and moist. NECK: Supple. Trachea midline. CARDIOVASCULAR: Tachycardic. S1, S2 noted. No murmur appreciated. RESPIRATORY: No accessory muscle use. Clear to auscultation. Breath sounds equal bilaterally. GASTROINTESTINAL: Abdomen soft, non-tender, nondistended. Normoactive bowel sounds x4. MUSCULOSKELETAL: No obvious deformities. Extremities without clubbing, cyanosis , or edema. NEUROLOGICAL: Lethargic. Upon verbalizing. Right upper and lower extremity flaccid, withdrawals to noxious stimuli. Left upper and lower extremity spontaneous. A/P Assessment and Plan 72-year-old white female being admitted for suspected stroke. Left MCA CVA Patient with lethargy and right sided flaccidity. Dysphagia, speech therapy following, NG tube placed with tube feeding. Patient tolerating well. Dietitian following. MRI reviewed showing acute left MCA stroke. Continue fall precautions. Keep blood pressure less 160. Echocardiogram done showing EF of 60-65%. Continue rectal aspirin daily Continue daily pt/st/ot eval Telemetry, monitor for any arrhythmias, maybe a candidate for Holter monitor to evaluate for any atrial fibrillation Continue IV fluids. Supportive care. Lipid panel reviewed, normal. Continue atorvastatin. TSH within normal limits. Neurology following patient. Appreciate further input and recommendations. Hypertension, chronic Episode of tachycardia, HR in the 130's On Cardene drip. Wean to keep BP < 140-160. Restarted on home medications. Continue to monitor BP trends. EKG obtained, reviewed and showing sinus tachycardia with right bundle branch block. Troponins negative. Type 2 diabetes, chronic Accu-Chek before meals and at bedtime, sliding scale, cover as needed. Hemoglobin A1c id 7.8%. DVT prophylaxis: SCDs. Lovenox Discharge Planning Discharge disposition depends on palliative care consult and family wishes. Sulma Johnson Oct 19, 2017 15:07
[2017-10-19] MEDS: LOSARTAN 50 MG TAB PO SCH (15:15)
[2017-10-19] MEDS ORDERED: DILTIAZEM HCL 25 MG/5 ML VIAL IV ONE (15:15)
[2017-10-19] MEDS: ATENOLOL 25 MG TAB PO SCH (15:15)
[2017-10-19] MEDS: ENOXAPARIN SODIUM 30 MG/0.3 ML SYRINGE SQ SCH (15:15)
[2017-10-19] MEDS: DOCUSATE SODIUM 100 MG CAP PO SCH ×2 (15:15→20:40)
[2017-10-19] MEDS: INSULIN NovoLIN REGULAR SUPPLEMENTAL SCALE SQ SCH ×2 (17:24→20:41)
[2017-10-19] MEDS: niCARdipine INJ 25 MG in SODIUM CHLOR 0.9% 250 ML INJ 250 ML IV PRN ×2 (17:26→22:29)
[2017-10-19] MEDS: VERAPAMIL HCL 120 MG TAB PO SCH (20:40)
[2017-10-19] MEDS: ATORVASTATIN 40 MG TAB PO SCH (20:40)
[2017-10-19] MEDS: INSULIN DETEMIR 100 UNITS/ML VIAL SQ SCH (20:40)
[2017-10-20] VITALS (69 sets, daily range): BP systolic 93–169; BP diastolic 42–72; PULSE 50–116; RESP 23–37; TEMP 98.1–99.7; O2SAT 92–99
[2017-10-20] MEDS: niCARdipine INJ 25 MG in SODIUM CHLOR 0.9% 250 ML INJ 250 ML IV PRN (03:33)
[2017-10-20] MEDS: CHLORHEXIDINE GLUCONATE 2 % 1 PACK (2 CLOTHS)(taper/protocol) TOPICAL SCH (04:00)
[2017-10-20 05:44] LABS: AUTOMATED NEUTROPHIL # 14.8 TH/MM3 (1.8-7.7); BASOPHIL # 0.1 TH/MM3 (0-0.2); BASOPHIL % 0.3 % (0.0-2.0); EOSINOPHIL % 0.1 % (0.0-4.0); HEMATOCRIT 39.4 % (35.0-46.0); HEMOGLOBIN 13.3 GM/DL (11.6-15.3); LYMPH % 8.3 % (9.0-44.0); LYMPHOCYTE # 1.5 TH/MM3 (1.0-4.8); MEAN CELL VOLUME 90.8 FL (80.0-100.0); MEAN CORPUSCULAR HEMOGLOBIN 30.6 PG (27.0-34.0); MEAN CORPUSCULAR HGB CONC 33.7 % (32.0-36.0); MEAN PLATELET VOLUME 8.7 FL (7.0-11.0); MONO % 7.4 % (0.0-8.0); MONOCYTE # 1.3 TH/MM3 (0-0.9); NEUT % 83.9 % (16.0-70.0); PLATELET COUNT 283 TH/MM3 (150-450); RED BLOOD COUNT 4.34 MIL/MM3 (4.00-5.30); RED CELL DISTRIBUTION WIDTH 12.3 % (11.6-17.2); WHITE BLOOD COUNT 17.7 TH/MM3 (4.0-11.0)
[2017-10-20 06:15] LABS: BICARBONATE 28.2 MEQ/L (21.0-32.0); CALCIUM 8.6 MG/DL (8.5-10.1); CREATININE 0.69 MG/DL (0.50-1.00)
[2017-10-20] MEDS: POTASSIUM CHLORIDE 25 MEQ EFFERVESCENT TAB NG SCH ×2 (07:56→08:11)
[2017-10-20] MEDS ORDERED: POTASSIUM CHLOR 20 MEQ PREMIX 100 ML IV ONE (08:00)
[2017-10-20] MEDS: VERAPAMIL HCL 120 MG TAB PO SCH ×2 (08:10→20:51)
[2017-10-20] MEDS: ATENOLOL 25 MG TAB PO SCH ×2 (08:10→20:51)
[2017-10-20] MEDS: LOSARTAN 50 MG TAB PO SCH (08:10)
[2017-10-20] MEDS: INSULIN NovoLIN REGULAR SUPPLEMENTAL SCALE SQ SCH ×4 (08:10→20:51)
[2017-10-20] MEDS: DOCUSATE SODIUM 100 MG CAP PO SCH ×2 (08:10→20:50)
[2017-10-20] MEDS: SODIUM CHLORIDE 0.9% FLUSH 10 ML FLUSH IV FLUSH SCH ×2 (08:11→20:50)
--- NOTE | 2017-10-20 13:14 | HHI.PR ---
Subjective Remarks Patient seen and examined today for follow-up on rather large area of evolving infarct involving the left MCA territory. Patient still does not respond to any verbal stimuli. She does respond to painful stimuli. Patient is not have any purposeful movements. Presently she is protecting her airway, no respiratory distress. Objective Vitals Vital Signs Date Time Temp Pulse Resp B/P (MAP) Pulse Ox O2 Delivery O2 Flow Rate FiO2 10/20/17 11:01 54 34 135/58 (83) 99 10/20/17 10:46 56 34 138/61 (86) 98 10/20/17 10:16 56 33 124/58 (80) 98 10/20/17 10:01 54 32 123/50 (74) 98 10/20/17 09:46 54 29 120/52 (74) 97 10/20/17 09:31 54 33 108/45 (66) 97 10/20/17 09:17 52 37 93/42 (59) 97 10/20/17 09:16 52 34 94/42 (59) 97 10/20/17 09:09 50 10/20/17 09:01 68 26 116/48 (70) 95 10/20/17 09:00 98.1 68 28 117/48 (71) 95 10/20/17 09:00 68 28 95 10/20/17 08:00 116 25 96 10/20/17 08:00 109 10/20/17 06:01 108 25 143/59 (87) 96 10/20/17 06:00 110 10/20/17 05:00 108 23 161/71 (101) 96 10/20/17 04:00 106 10/20/17 04:00 99.7 106 25 160/66 (97) 95 10/20/17 03:33 109 162/65 10/20/17 03:00 106 24 157/60 (92) 95 10/20/17 02:00 102 25 158/63 (94) 95 10/20/17 02:00 102 10/20/17 01:00 100 27 158/67 (97) 96 10/20/17 00:00 98.6 90 24 149/67 (94) 96 10/20/17 00:00 90 10/19/17 23:00 84 25 152/65 (94) 96 10/19/17 22:29 84 145/67 10/19/17 22:00 74 39 142/60 (87) 97 10/19/17 22:00 74 10/19/17 21:00 84 10/19/17 21:00 96 21 10/19/17 21:00 84 25 147/57 (87) 96 10/19/17 20:00 98.9 106 26 161/74 (103) 97 10/19/17 20:00 106 10/19/17 19:00 102 24 169/69 (102) 98 10/19/17 18:40 101 165/74 10/19/17 18:00 100 23 166/73 (104) 97 10/19/17 18:00 100 10/19/17 18:00 99 166/73 10/19/17 17:26 98 170/75 10/19/17 17:00 94 26 159/71 (100) 98 10/19/17 17:00 94 10/19/17 16:00 99.8 90 27 153/65 (94) 97 10/19/17 16:00 90 10/19/17 15:00 132 25 179/79 (112) 98 10/19/17 15:00 132 10/19/17 14:00 128 24 175/79 (111) 97 10/19/17 14:00 128 10/19/17 13:45 126 181/85 10/19/17 13:23 128 190/85 I/O 10/19/17 10/19/17 10/19/17 10/20/17 10/20/17 10/20/17 07:00 15:00 23:00 07:00 15:00 23:00 Intake Total 1000 ml 2641 ml 1103 ml Output Total 1500 ml 1000 ml 1825 ml Balance -1500 ml 1000 ml 1641 ml -722 ml IV Total 1000 ml 2062 ml 1103 ml Tube Feeding 579 ml Output Urine Total 1500 ml 1000 ml 1825 ml # Bowel Movements 0 Result Diagram: 10/20/17 0450 10/20/17 0443 Imaging Last Impressions Chest X-Ray 10/19/17 0000 Signed Impressions: Service Date/Time: Thursday, October 19, 2017 10:36 - CONCLUSION: Mild dilatation ascending aorta Nasogastric tube in position. Chema Campbell MD FACR Head CT 10/18/17 0000 Signed Impressions: Service Date/Time: Wednesday, October 18, 2017 09:08 - CONCLUSION: Large area of evolving infarct involving the left MCA territory. There is diffuse sulcal effacement adjacent to the area of infarct. No evidence of effacement of the ventricles or midline shift.. Mary Jane Caballero MD Abdomen X-Ray 10/18/17 0000 Signed Impressions: Service Date/Time: Wednesday, October 18, 2017 17:20 - CONCLUSION: Gastric tube tip and side-port project within the stomach. Lei Kerr MD Neck Magnetic Resonance Angiography 10/17/17933 Signed Impressions: Service Date/Time: Tuesday, October 17, 2017 11:17 - CONCLUSION: Mild posterior soft plaque in left carotid bulb non-stenotic. Slit like, pinch stenosis at the origin of the right internal carotid artery. Poor visualization origin of the dominant left vertebral artery . Bilateral internal carotids in the siphon are somewhat irregular and poorly visualized however intracranially there is absence of flow in the left middle cerebral artery. Raj Reinoso MD Head Magnetic Resonance Angiography 10/17/17933 Signed Impressions: Service Date/Time: Tuesday, October 17, 2017 11:17 - CONCLUSION: Complete occlusion of the left MCA corresponding with the hyperdense left MCA seen on comparison CT. Mary Jane Caballero MD Brain MRI 10/17/17933 Signed Impressions: Service Date/Time: Tuesday, October 17, 2017 11:17 - CONCLUSION: Acute left MCA stroke Raj Reinoso MD Objective Remarks GENERAL: Well-developed, well-nourished, patient has decreased mental status, does not respond to verbal stimuli or have any purposeful movement. Patient responds to painful stimuli or reflexes HEENT: Head is normocephalic without any lesions or masses noted. Eyes: Conjunctivae were clear. NECK: Supple without any masses. Trachea midline no deviation. No JVD, CARDIAC: Regular rhythm, regular rate. S1/S2 are heard. No murmurs gallops or rubs. LUNGS: Clear to auscultation bilaterally. No wheeze, rhonchi or rales. No use of accessory muscles on inspiration or expiration. ABDOMEN: Soft, nontender. Nondistended. Bowel sounds heard in all 4 quadrants. No organomegaly or masses. Negative rebound, negative guarding EXTREMITIES: No edema, pulses are equal bilaterally. No cyanosis or clubbing NEUROLOGY: Patient with decreased mental status. Patient has good reflex response to the left side. However she is hyperextending her right ankle. Only reflex response to repeated plantar reflex of the right lower extremity Urinary Catheter: Yes Assessment to: Continue Rogers insert reason: Measure Accurate Output Vascular Central Line Catheter: No A/P Assessment and Plan Left MCA CVA, rather large and evolving Patient with decreased mental status, lethargy, only responsive to painful stimuli, no purposeful movements MRI reviewed showing acute left MCA stroke. CT showing rather large evolving left MCA stroke MRA of the neck there is a stenosis at the origin of the right internal carotid artery. There is absent flow in the left middle cerebral artery Echocardiogram done showing EF of 60-65%. Continue rectal aspirin daily Continue daily pt/st/ot eval Speech therapy unable to perform any evaluation. NG tube has been placed for nutritional support, tube feeding is being tolerated at this time. Dietary following Telemetry, monitor for any arrhythmias, maybe a candidate for Holter monitor to evaluate for any atrial fibrillation Lipid panel reviewed, normal. Continue atorvastatin. TSH within normal limits. Neurology following patient. Will discuss further care with neurologist If no significant improvement may need to consult palliative care for goals of care Hypertension, chronic Episode of tachycardia, HR in the 130's On Cardene drip. Wean to keep BP < 140-160. Verapamil 120 mg twice daily Losartan 100 mg daily Atenolol 25 mg daily, increase to twice daily EKG obtained, reviewed and showing sinus tachycardia with right bundle branch block. Type 2 diabetes, chronic Levemir 10 units daily at bedtime Accu-Cheks with sliding scale insulin Hemoglobin A1c 7.8 Hypokalemia Continue monitor and replete as needed DVT prophylaxis: SCDs. Roney Pickering Oct 20, 2017 13:14
[2017-10-20] MEDS: ENOXAPARIN SODIUM 30 MG/0.3 ML SYRINGE SQ SCH (15:39)
[2017-10-20] MEDS: INSULIN DETEMIR 100 UNITS/ML VIAL SQ SCH (20:51)
[2017-10-20] MEDS: ATORVASTATIN 40 MG TAB PO SCH (20:51)
[2017-10-20] MEDS ORDERED: POTASSIUM CHLORIDE 25 MEQ EFFERVESCENT TAB PO ONE (23:00)
[2017-10-21] VITALS (37 sets, daily range): BP systolic 102–175; BP diastolic 48–101; PULSE 36–102; RESP 14–37; TEMP 97.8–99.6; O2SAT 95–100
[2017-10-21] MEDS: CHLORHEXIDINE GLUCONATE 2 % 1 PACK (2 CLOTHS)(taper/protocol) TOPICAL SCH (04:00)
[2017-10-21 05:16] LABS: AUTOMATED NEUTROPHIL # 14.7 TH/MM3 (1.8-7.7); BASOPHIL # 0.1 TH/MM3 (0-0.2); BASOPHIL % 0.3 % (0.0-2.0); EOSINOPHIL % 0.1 % (0.0-4.0); HEMATOCRIT 40.2 % (35.0-46.0); HEMOGLOBIN 13.9 GM/DL (11.6-15.3); LYMPH % 9.8 % (9.0-44.0); LYMPHOCYTE # 1.8 TH/MM3 (1.0-4.8); MEAN CELL VOLUME 90.9 FL (80.0-100.0); MEAN CORPUSCULAR HEMOGLOBIN 31.4 PG (27.0-34.0); MEAN CORPUSCULAR HGB CONC 34.5 % (32.0-36.0); MEAN PLATELET VOLUME 8.8 FL (7.0-11.0); MONO % 7.3 % (0.0-8.0); MONOCYTE # 1.3 TH/MM3 (0-0.9); NEUT % 82.5 % (16.0-70.0); PLATELET COUNT 287 TH/MM3 (150-450); RED BLOOD COUNT 4.43 MIL/MM3 (4.00-5.30); RED CELL DISTRIBUTION WIDTH 12.8 % (11.6-17.2); WHITE BLOOD COUNT 17.9 TH/MM3 (4.0-11.0)
[2017-10-21 05:42] LABS: BICARBONATE 29.6 MEQ/L (21.0-32.0); CREATININE 0.76 MG/DL (0.50-1.00)
[2017-10-21] MEDS ORDERED: POTASSIUM CHLOR 20 MEQ PREMIX 100 ML IV ONE ×2 (07:45→11:15)
[2017-10-21] MEDS ORDERED: POTASSIUM CHLORIDE 25 MEQ EFFERVESCENT TAB PO ONE (07:45)
--- NOTE | 2017-10-21 08:00 | HHI.PR ---
Subjective Remarks Patient seen and examined today for follow-up on rather large evolving CVA. Nursing staff indicating acute events overnight. Patient does have some purposeful movements. She will squeeze your hand when you ask her to. Otherwise at the present time patient does not open her eyes, communicate. Objective Vitals Vital Signs Date Time Temp Pulse Resp B/P (MAP) Pulse Ox O2 Delivery O2 Flow Rate FiO2 10/21/17 06:00 96 24 159/64 (95) 98 10/21/17 06:00 96 10/21/17 05:30 90 21 175/78 (110) 100 10/21/17 05:30 96 175/78 10/21/17 05:00 78 16 152/60 (90) 100 10/21/17 04:30 90 23 158/60 (92) 99 10/21/17 04:00 97.8 94 33 159/65 (96) 99 10/21/17 03:30 92 31 161/66 (97) 98 10/21/17 03:00 90 29 156/69 (98) 97 10/21/17 02:30 88 23 160/64 (96) 98 10/21/17 02:00 90 29 165/62 (96) 98 10/21/17 02:00 90 10/21/17 02:00 90 165/62 10/21/17 01:30 78 25 155/55 (88) 98 10/21/17 01:00 80 30 157/73 (101) 98 10/21/17 00:50 80 29 152/65 (94) 97 10/21/17 00:16 72 28 151/58 (89) 98 10/21/17 00:01 98.0 72 31 147/58 (87) 97 10/21/17 00:00 72 10/20/17 23:31 68 25 149/61 (90) 98 10/20/17 23:16 70 31 151/62 (91) 96 10/20/17 23:01 70 31 145/58 (87) 94 10/20/17 22:46 72 28 147/59 (88) 99 10/20/17 22:31 72 32 139/60 (86) 98 10/20/17 22:16 72 28 142/57 (85) 98 10/20/17 22:01 72 32 137/55 (82) 98 10/20/17 22:00 72 2/13/18 21:46 72 32 129/55 (79) 97 10/20/17 21:35 74 25 125/56 (79) 92 10/20/17 21:34 72 125/56 10/20/17 21:14 69 134/59 10/20/17 21:13 68 10/20/17 21:01 106 31 155/61 (92) 94 10/20/17 20:31 110 31 158/65 (96) 95 10/20/17 20:01 98.8 108 32 165/61 (95) 95 10/20/17 20:00 108 10/20/17 19:46 108 32 152/68 (96) 95 10/20/17 19:38 95 21 10/20/17 19:31 106 27 155/66 (95) 96 10/20/17 19:24 106 32 159/65 (96) 95 10/20/17 19:16 108 32 151/65 (93) 94 10/20/17 19:01 104 30 149/69 (95) 94 10/20/17 18:00 102 169/72 (104) 10/20/17 17:16 104 23 147/70 (95) 96 10/20/17 17:01 98.7 104 31 149/63 (91) 95 10/20/17 16:46 102 33 155/63 (93) 96 10/20/17 16:31 102 28 145/64 (91) 97 10/20/17 16:16 102 31 142/66 (91) 94 10/20/17 16:15 102 29 94 10/20/17 16:01 102 31 152/60 (90) 97 10/20/17 15:46 98 25 147/61 (89) 94 10/20/17 15:31 100 30 152/72 (98) 97 18 15:31 100 30 152/72 (98) 97 10/20/17 15:16 102 28 150/65 (93) 96 10/20/17 15:16 102 28 150/65 (93) 96 10/20/17 15:01 98 29 142/63 (89) 97 10/20/17 15:01 98 29 142/63 (89) 97 10/20/17 14:46 96 26 151/67 (95) 97 10/20/17 14:46 96 26 151/67 (95) 97 10/20/17 14:45 96 28 96 10/20/17 14:31 98 24 161/70 (100) 97 10/20/17 14:31 98 24 161/70 (100) 97 10/20/17 14:30 98 25 95 10/20/17 14:16 96 32 158/64 (95) 96 10/20/17 14:01 98 28 164/68 (100) 97 10/20/17 14:01 98 28 164/68 (100) 97 10/20/17 14:00 98 10/20/17 13:46 94 29 158/68 (98) 96 10/20/17 13:46 94 29 158/68 (98) 96 10/20/17 13:45 94 28 97 10/20/17 13:31 92 31 164/61 (95) 96 10/20/17 13:01 86 28 156/64 (94) 96 10/20/17 12:46 84 26 156/70 (98) 98 10/20/17 12:31 84 30 149/67 (94) 97 10/20/17 12:16 82 28 148/62 (90) 97 10/20/17 12:01 82 27 151/59 (89) 97 10/20/17 12:00 111 10/20/17 12:00 82 27 97 10/20/17 11:01 54 34 135/58 (83) 99 10/20/17 10:46 56 34 138/61 (86) 98 10/20/17 10:16 56 33 124/58 (80) 98 10/20/17 10:01 54 32 123/50 (74) 98 10/20/17 09:46 54 29 120/52 (74) 97 10/20/17 09:31 54 33 108/45 (66) 97 10/20/17 09:17 52 37 93/42 (59) 97 10/20/17 09:16 52 34 94/42 (59) 97 10/20/17 09:09 50 10/20/17 09:01 68 26 116/48 (70) 95 10/20/17 09:00 98.1 68 28 117/48 (71) 95 10/20/17 09:00 68 28 95 I/O 2/1310/20/17 10/20/17 10/21/17 10/21/17 10/21/17 07:00 15:00 23:00 07:00 15:00 23:00 Intake Total 1103 ml 620 ml Output Total 1825 ml 2400 ml 900 ml Balance -722 ml -2400 ml -280 ml IV Total 1103 ml 200 ml Tube Feeding 420 ml Output Urine Total 1825 ml 2400 ml 900 ml # Bowel Movements 0 Result Diagram: 10/21/1742910/21/17429 Objective Remarks GENERAL: Well-developed, well-nourished, patient has decreased mental status, does not respond to verbal stimuli or have any purposeful movement. Patient responds to painful stimuli or reflexes HEENT: Head is normocephalic without any lesions or masses noted. Eyes: Conjunctivae were clear. NECK: Supple without any masses. Trachea midline no deviation. No JVD, CARDIAC: Regular rhythm, regular rate. S1/S2 are heard. No murmurs gallops or rubs. LUNGS: Clear to auscultation bilaterally. No wheeze, rhonchi or rales. No use of accessory muscles on inspiration or expiration. ABDOMEN: Soft, nontender. Nondistended. Bowel sounds heard in all 4 quadrants. No organomegaly or masses. Negative rebound, negative guarding EXTREMITIES: No edema, pulses are equal bilaterally. No cyanosis or clubbing NEUROLOGY: Patient with decreased mental status. Patient has good reflex response to the left side. However she is hyperextending her right ankle. Only reflex response to repeated plantar reflex of the right lower extremity Urinary Catheter: Yes Assessment to: Continue Rogers insert reason: Measure Accurate Output Vascular Central Line Catheter: No A/P Assessment and Plan Left MCA CVA, rather large and evolving Patient with right hemiplegia, aphagia, aphasia, major neurological deficits Patient with decreased mental status, lethargy, minimal purposeful movements with hand squeezing. Does not spontaneously open eyes, does not communicate MRI reviewed showing acute left MCA stroke. CT showing rather large evolving left MCA stroke MRA of the neck there is a stenosis at the origin of the right internal carotid artery. There is absent flow in the left middle cerebral artery Echocardiogram done showing EF of 60-65%. Continue rectal aspirin daily Continue daily pt/st/ot eval Speech therapy unable to perform any evaluation. NG tube has been placed for nutritional support, tube feeding is being tolerated at this time. Dietary following Telemetry, monitor for any arrhythmias, maybe a candidate for Holter monitor to evaluate for any atrial fibrillation Lipid panel reviewed, normal. Continue atorvastatin. TSH within normal limits. Neurology following patient. Palliative care was consulted to discuss goals of care. Patient will likely need long-term feeding tube and rather extensive and significant rehabilitation and therapy Patient developed significant bradycardia and 30 and 40s. [employer] was called immediately, Stat CT of the brain was performed which did show hemorrhagic evolution of the stroke with midline shift Patient was intubated for airway support, patient started on hypertonic saline solution, patient given mannitol, stat consult to neurosurgery, stat transfer to Main hospital Hypertension, uncontrolled Episode of tachycardia, HR in the 130's On Cardene drip. Wean to keep BP < 140-160. Verapamil 120 mg twice daily Losartan 100 mg daily Atenolol 25 mg twice daily EKG obtained, reviewed and showing sinus tachycardia with right bundle branch block. Type 2 diabetes, chronic Levemir 10 units twice daily Accu-Cheks with sliding scale insulin Hemoglobin A1c 7.8 Hypokalemia Continue monitor and replete as needed DVT prophylaxis: SCDs. Lovenoahx Roney Marroquin Oct 21, 2017 08:00
--- NOTE | 2017-10-21 08:03 | EKG ---
Date Performed: 10/19/2017 Time Performed: 14:51:47 PTAGE: 72 years EKG: SINUS TACHYCARDIA RIGHT BUNDLE BRANCH BLOCK POSSIBLE ANTERIOR MYOCARDIAL INFARCTION Since p revious tracing, no significant change noted ABNORMAL ECG PREVIOUS TRACING : 10/19/2017 10.50 DOCTOR: Jim Hill Interpretating Date/Time 10/21/2017 08:01:55
--- NOTE | 2017-10-21 08:03 | EKG ---
Date Performed: 10/19/2017 Time Performed: 10:50:46 PTAGE: 72 years EKG: SINUS TACHYCARDIA RIGHT BUNDLE BRANCH BLOCK POSSIBLE ANTERIOR MYOCARDIAL INFARCTION Compare d to previous tracing right bundle branch block is new, sinus rate has increased. ABNORMAL ECG PREVIOUS TRACING : 10/17/2017 08.16 DOCTOR: Jim Hill Interpretating Date/Time 10/21/2017 08:01:42
[2017-10-21] MEDS: niCARdipine INJ 25 MG in SODIUM CHLOR 0.9% 250 ML INJ 250 ML IV PRN (08:14)
[2017-10-21] MEDS ORDERED: hydrALAZINE HCL 10 MG TAB NG SCH (08:15)
[2017-10-21] MEDS ORDERED: ASPIRIN 300 MG SUPP RECTAL SCH (09:00)
[2017-10-21] MEDS: INSULIN DETEMIR 100 UNITS/ML VIAL SQ SCH ×2 (09:00→20:37)
[2017-10-21] MEDS: INSULIN NovoLIN REGULAR SUPPLEMENTAL SCALE SQ SCH ×4 (10:19→20:37)
[2017-10-21] MEDS: DOCUSATE SODIUM 100 MG CAP PO SCH ×2 (10:30→20:48)
[2017-10-21] MEDS: LOSARTAN 50 MG TAB PO SCH (10:30)
[2017-10-21] MEDS: VERAPAMIL HCL 120 MG TAB PO SCH (10:30)
[2017-10-21] MEDS: ATENOLOL 25 MG TAB PO SCH (10:30)
[2017-10-21] MEDS: SODIUM CHLORIDE 0.9% FLUSH 10 ML FLUSH IV FLUSH SCH ×2 (10:31→20:49)
--- NOTE | 2017-10-21 11:28 | PD.CONS ---
Consult Service Palliative Care . Consult Requested By IMELDA Arredondo . Primary Care Physician Unknown . Reason for Consultation a. To assist with evaluation and management of symptoms including: Encephalopathy, dyspnea and pain b. To assist medical decision maker(s) with: better understanding of current medical conditions; weighing benefits/burdens of medical treatment options; making medical treatment decisions. . HPI History of Present Illness Ester Lake is a 72-year-old female who presented to [facility] ED in [place] via EMS for evaluation of strokelike symptoms after her found her on the couch at morning moaning and minimally responsive. She was last seen normal the previous night at 8PM. Patient vomited prior to EMS arrival. EMS found the patient alert to speech and nonverbal with a GCS of 9. BGL of 176. Patient was noted to have right-sided facial droop, right arm was flaccid. She was unable to follow commands. Per , the patient was seen by her physician on 10/16/2017 and was diagnosed with a sinus infection for which she received and started antibiotics. Patient's medical history is significant for hypertension, diabetes and hyperlipidemia. She is an active smoker. No known history of previous TIA or CVA. Additional diagnostic data: * Vital signs: Pulse 92, respirations 16, BP 120/105, oxygen saturation 94% on room air and oral temperature 97.5 * WBC: 12.2, hemoglobin 13.2, hematocrit 39.7, platelets 313, neutrophils 73.6% * Sodium: 128, potassium 4.6, chloride 94, carbon dioxide 24.2, glucose 205, calcium 8.7, phosphorus 3.3, magnesium 1.8 * BUN: 13, creatinine 1.20, GFR 44 * A1c: 7.8 * Total bilirubin: 0.4, direct bilirubin 0.1, indirect bilirubin 0.3, AST 33, ALT 29 * Alkaline phosphatase: 84 * Total protein: 7.3, creatinine 3.7 * PT: 10.9, INR 1.1, APTT 23.4 * Urinalysis-norm * CT head showed increased density involving the left MCA concerning for acute thrombosis. * MRI of the brain revealed an acute left MCA stroke. * Head MRA with complete occlusion of the left MCA corresponding with hyperdense left MCA seen on comparison CT * Neck MRA showed mild posterior soft plaque in the left carotid bulb none stenotic. Slitlike, pinch stenosis at the origin of the right internal carotid artery. Poor visualization origin of the dominant left vertebral artery. Bilateral internal carotids and the siphon are somewhat irregular and poorly visualized, however intracranially there is absence of flow in the left middle cerebral artery. * Chest x-ray was abnormal, concerning for acute bronchiolitis or interstitial edema. Patient was admitted for further evaluation and medical management of acute left MCA stroke. Unfortunately, the patient was not a candidate for TPA because the time of symptom onset was unknown. Patient to remain on IV doxycycline for now, we'll stop his pro-calcitonin is negative. She was started on ASA 300 mg ND daily; head of bed flat; cardiology drip to keep systolic blood pressure <200. Neurology was consulted. Patient was unable to participate in swallow evaluation. Speech therapy recommended the patient remain NPO, GT was subsequently placed. Follow-up CT the next morning 10/18/2017 showed a large area of evolving infarct involving the left MCA territory. There was diffuse sulcal effacement adjacent to the area infarct. No evidence of effacement of the ventricles or midline shift. Palliative Care was consulted to assist with symptom management and to discuss with the family the benefits and burdens of her current illnesses and the options regarding future care. . Function/Cognitive Trajectory Ms. Lake has a known medical history that includes hypertension, diabetes and hyperlipidemia. She was on metformin for her diabetes and follows her PCP regularly. Prior to this neurological event, the patient was independent and went walking daily with her friends. . Review of Systems ROS Limitations: Altered Mental Status, Speech Impaired (ROS obtained through review of notes and family/medical team report.) Hematologic/Lymphatics: COMPLAINS OF: Bruising (bilateral upper extremities) Neurologic: COMPLAINS OF: Localized weakness (left-sided weakness) Past Family Social History Coded Allergies: Penicillins (Verified Allergy, Unknown, Unknown, 10/17/17) Past Medical History Hypertension Diabetes Hyperlipidemia . Past Surgical History Pending further conversations with the patient's family . Reported Medications Verapamil (Verapamil HCl) 120 Mg Tab 120 Mg PO BID Metformin (Metformin HCl) 1,000 Mg Tab 1,000 Mg PO BIDPC Atenolol 25 Mg Tab 25 Mg PO DAILY Losartan (Losartan Potassium) 100 Mg Tab 100 Mg PO DAILY Doxycycline Hyclate 100 Mg Cap 100 Mg PO BID . Current Medications Medications (Trade) Dose Ordered Sig/Jeyson Route Start Time Stop Time Status Last Admin (NS Flush) 2 ml BID IV FLUSH 10/17/17 21:00 10/21/17 10:31 (NS Flush) 2 ml UNSCH PRN IV FLUSH 10/17/17 09:45 (Lipitor) 40 mg HS PO 10/18/17 21:00 10/20/17 20:51 Miscellaneous Information Patient in critical care unit? Ass... [id number] .XX 10/17/17 11:00 10/17/17 11:00 (Chlorhexidine 2% Cloth) 3 pack DAILY@04 TOPICAL 10/18/17 04:00 10/22/17 04:01 10/21/17 04:00 (Chlorhexidine 2% Cloth) 3 pack UNSCH PRN TOPICAL 10/17/17 11:00 10/22/17 10:57 Nicardipine HCl 25 mg/Sodium Chloride 260 ml @ 52 mls/hr TITRATE PRN IV 10/17/17 20:00 10/21/17 08:14 (Zofran Inj) 4 mg Q6HR PRN IV PUSH 10/18/17 00:45 10/18/17 00:48 (Compazine Inj) 5 mg Q4H PRN IV PUSH 10/18/17 00:45 (Isoptin) 120 mg BID PO 10/19/17 21:00 10/21/17 10:30 (Lovenox Inj) 30 mg Q24H SQ 10/19/17 15:00 10/20/17 15:39 (Colace) 100 mg BID PO 10/19/17 15:00 10/21/17 10:30 (Cozaar) 100 mg DAILY PO 10/19/17 15:00 10/21/17 10:30 (NovoLIN R SUPPLEMENTAL SCALE) 1 ACHS SLIDING SCALE SQ 10/19/17 17:00 10/21/17 10:19 (Tenormin) 25 mg BID PO 10/20/17 21:00 10/21/17 10:30 (Aspirin Supp) 300 mg DAILY RECTAL 10/21/17 09:00 (Levemir Inj) 10 units BID SQ 10/21/17 09:00 10/21/17 09:00 (Apresoline) 10 mg Q6HR NG 10/21/17 08:15 10/21/17 08:15 . Family History Sister with ovarian cancer; son with diabetes. . . Substance Use Tobacco: Active smoker Alcohol: None known Prescription med abuse: None known Illicits: None known . Psychosocial History Patient is originally from [place]. She has been to her current (Odilon) for approximately 25 years. Odilon has 1 adult son from a previous relationship, and Ester (who prefers to be called by her middle name- Indy) has 2 adult sons. Ester worked a [employer] in [place]. When her retired 18 years ago, she quit her job in [place]. . Spiritual/Cultural Factors Anabaptism serg . Living Will: Never completed Health Care Surrogate: Never completed Durable Power of Shoe Fitter: Never completed Health Care Surrogate(s): Healthcare surrogate designation form has not been completed. . Documented care wishes: No significant advanced directives were completed previously. The patient's states his would not want to be kept alive on machines for a prolonged period of time, and the extended family agrees with that statement. Plan to allow the patient 7-10 days to see if there is any improvement. . Today's verbally stated goals: Patient is unable to verbalize medical treatment goals of care secondary to clinical condition. . Family/friends goals: Aggressive up to the point of cardiopulmonary resuscitation. CODE STATUS ALTERNATE CODE-intubation only. Family would like to allow the patient 7-10 days to see if there is any improvement; if there is no improvement they may consider transitioning to comfort focused care at that time. . Ethical and Legal Issues No known ethical legal issues impacting care at this time. . Physical Exam Vital Signs Date Time Temp Pulse Resp B/P (MAP) Pulse Ox O2 Delivery O2 Flow Rate FiO2 10/21/17 08:20 97 Nasal Cannula 2.50 10/21/17 08:14 100 156/61 10/21/17 08:11 100 156/61 10/21/17 06:00 96 24 159/64 (95) 98 10/21/17 06:00 96 10/21/17 05:30 90 21 175/78 (110) 100 10/21/17 05:30 96 175/78 10/21/17 05:00 78 16 152/60 (90) 100 10/21/17 04:30 90 23 158/60 (92) 99 10/21/17 04:00 97.8 94 33 159/65 (96) 99 2/14/18 03:30 92 31 161/66 (97) 98 10/21/17 03:00 90 29 156/69 (98) 97 10/21/17 02:30 88 23 160/64 (96) 98 10/21/17 02:00 90 29 165/62 (96) 98 10/21/17 02:00 90 10/21/17 02:00 90 165/62 10/21/17 01:30 78 25 155/55 (88) 98 10/21/17 01:00 80 30 157/73 (101) 98 10/21/17 00:50 80 29 152/65 (94) 97 10/21/17 00:16 72 28 151/58 (89) 98 10/21/17 00:01 98.0 72 31 147/58 (87) 97 10/21/17 00:00 72 10/20/17 23:31 68 25 149/61 (90) 98 10/20/17 23:16 70 31 151/62 (91) 96 10/20/17 23:01 70 31 145/58 (87) 94 10/20/17 22:46 72 28 147/59 (88) 99 10/20/17 22:31 72 32 139/60 (86) 98 10/20/17 22:16 72 28 142/57 (85) 98 10/20/17 22:01 72 32 137/55 (82) 98 10/20/17 22:00 72 10/20/17 21:46 72 32 129/55 (79) 97 10/20/17 21:35 74 25 125/56 (79) 92 10/20/17 21:34 72 125/56 10/20/17 21:14 69 134/59 18 21:13 68 10/20/17 21:01 106 31 155/61 (92) 94 18 20:31 110 31 158/65 (96) 95 10/20/17 20:01 98.8 108 32 165/61 (95) 95 10/20/17 20:00 108 18 19:46 108 32 152/68 (96) 95 10/20/17 19:38 95 21 10/20/17 19:31 106 27 155/66 (95) 96 10/20/17 19:24 106 32 159/65 (96) 95 2/13/18 19:16 108 32 151/65 (93) 94 2//18 19:01 104 30 149/69 (95) 94 2/18 18:00 102 169/72 (104) 10/20/18 17:16 104 23 147/70 (95) 96 2/18 17:01 98.7 104 31 149/63 (91) 95 10/20/18 16:46 102 33 155/63 (93) 96 10/20/18 16:31 102 28 145/64 (91) 97 10/20/18 16:16 102 31 142/66 (91) 94 10/20/18 16:15 102 29 94 10/20/18 16:01 102 31 152/60 (90) 97 10/20/18 15:46 98 25 147/61 (89) 94 10/20/18 15:31 100 30 152/72 (98) 97 10/20/18 15:31 100 30 152/72 (98) 97 10/20/18 15:16 102 28 150/65 (93) 96 10/20/18 15:16 102 28 150/65 (93) 96 10/20/18 15:01 98 29 142/63 (89) 97 10/20/18 15:01 98 29 142/63 (89) 97 10/20/18 14:46 96 26 151/67 (95) 97 18 14:46 96 26 151/67 (95) 97 18 14:45 96 28 96 18 14:31 98 24 161/70 (100) 97 18 14:31 98 24 161/70 (100) 97 10/20/18 14:30 98 25 95 10/20/18 14:16 96 32 158/64 (95) 96 10/20/18 14:01 98 28 164/68 (100) 97 18 14:01 98 28 164/68 (100) 97 18 14:00 98 10/20/18 13:46 94 29 158/68 (98) 96 18 13:46 94 29 158/68 (98) 96 18 13:45 94 28 97 18 13:31 92 31 164/61 (95) 96 10/20/17 13:01 86 28 156/64 (94) 96 10/20/17 12:46 84 26 156/70 (98) 98 10/20/17 12:31 84 30 149/67 (94) 97 10/20/17 12:16 82 28 148/62 (90) 97 10/20/17 12:01 82 27 151/59 (89) 97 10/20/17 12:00 111 10/20/17 12:00 82 27 97 10/20/17 11:01 54 34 135/58 (83) 99 . 10/21/17 10/22/17 19:00 07:00 Intake Total 50 ml Output Total 750 ml Balance -700 ml IV Total 50 ml Output Urine Total 750 ml . Exam CONSTITUTIONAL/GENERAL: This is an adequately nourished, female patient who is critically ill. TUBES/LINES/DRAINS: PIV 2, Rogers catheter, NGT, SCDs, soft restraints SKIN: No jaundice, rashes, or lesions. Ecchymoses on upper extremities. No wounds seen anteriorly. Skin temperature appropriate. Not diaphoretic. HEAD: Atraumatic. Normocephalic. EYES: Pupils equal and round and reactive. Extraocular motions intact. No scleral icterus. No injection or drainage. Fundi not examined. ENT: Unable to assess hearing given patient's clinical condition. Nose without bleeding or purulent drainage. T NECK: Trachea midline. Supple, nontender. No palpable thyroid enlargement or nodularity. CARDIOVASCULAR: Tachycardic. No JVD. Peripheral pulses symmetric. RESPIRATORY/CHEST: Symmetric, unlabored respirations. Tachypneic, respirations 24-26 bpm. Oxygen saturation 98% on 2 L via nasal cannula. GASTROINTESTINAL: Abdomen soft, non-tender, nondistended. No hepato-splenomegaly , or palpable masses. No guarding. Bowel sounds present. GENITOURINARY: Without palpable bladder distension. Rogers catheter in place. MUSCULOSKELETAL: Extremities without clubbing, cyanosis, or edema. No mottling or clubbing. LYMPHATICS: No palpable cervical or supraclavicular adenopathy. NEUROLOGICAL: Minimally responsive. Does not arouse to verbal stimuli or open eyes. Patient withdraws upper and lower extremities on left side to tactile stimuli PSYCHIATRIC: Unable to assess given patient's current clinical condition . . Diagnostic Tests Laboratory Laboratory Tests Test 10/19/17 04:15 10/20/17 04:43 10/20/17 04:50 10/20/17 18:00 White Blood Count 22.3 TH/MM3 (4.0-11.0) 17.7 TH/MM3 (4.0-11.0) Red Blood Count 4.59 MIL/MM3 (4.00-5.30) 4.34 MIL/MM3 (4.00-5.30) Hemoglobin 14.4 GM/DL (11.6-15.3) 13.3 GM/DL (11.6-15.3) Hematocrit 41.9 % (35.0-46.0) 39.4 % (35.0-46.0) Mean Corpuscular Volume 91.3 FL (80.0-100.0) 90.8 FL (80.0-100.0) Mean Corpuscular Hemoglobin 31.5 PG (27.0-34.0) 30.6 PG (27.0-34.0) Mean Corpuscular Hemoglobin Concent 34.5 % (32.0-36.0) 33.7 % (32.0-36.0) Red Cell Distribution Width 12.6 % (11.6-17.2) 12.3 % (11.6-17.2) Platelet Count 324 TH/MM3 (150-450) 283 TH/MM3 (150-450) Mean Platelet Volume 8.5 FL (7.0-11.0) 8.7 FL (7.0-11.0) Neutrophils (%) (Auto) 85.2 % (16.0-70.0) 83.9 % (16.0-70.0) Lymphocytes (%) (Auto) 7.2 % (9.0-44.0) 8.3 % (9.0-44.0) Monocytes (%) (Auto) 7.4 % (0.0-8.0) 7.4 % (0.0-8.0) Eosinophils (%) (Auto) 0.1 % (0.0-4.0) 0.1 % (0.0-4.0) Basophils (%) (Auto) 0.1 % (0.0-2.0) 0.3 % (0.0-2.0) Neutrophils # (Auto) 19.0 TH/MM3 (1.8-7.7) 14.8 TH/MM3 (1.8-7.7) Lymphocytes # (Auto) 1.6 TH/MM3 (1.0-4.8) 1.5 TH/MM3 (1.0-4.8) Monocytes # (Auto) 1.7 TH/MM3 (0-0.9) 1.3 TH/MM3 (0-0.9) Eosinophils # (Auto) 0.0 TH/MM3 (0-0.4) 0.0 TH/MM3 (0-0.4) Basophils # (Auto) 0.0 TH/MM3 (0-0.2) 0.1 TH/MM3 (0-0.2) CBC Comment DIFF FINAL DIFF FINAL Differential Comment Blood Urea Nitrogen 18 MG/DL (7-18) Creatinine 0.69 MG/DL (0.50-1.00) Random Glucose 286 MG/DL (74-106) Calcium Level 8.6 MG/DL (8.5-10.1) Sodium Level 137 MEQ/L (136-145) Potassium Level 2.6 MEQ/L (3.5-5.1) 3.2 MEQ/L (3.5-5.1) Chloride Level 102 MEQ/L (98-107) Carbon Dioxide Level 28.2 MEQ/L (21.0-32.0) Anion Gap 7 MEQ/L (5-15) Estimat Glomerular Filtration Rate 84 ML/MIN (>89) Magnesium Level 2.0 MG/DL (1.5-2.5) Test 10/21/17 04:30 White Blood Count 17.9 TH/MM3 (4.0-11.0) Red Blood Count 4.43 MIL/MM3 (4.00-5.30) Hemoglobin 13.9 GM/DL (11.6-15.3) Hematocrit 40.2 % (35.0-46.0) Mean Corpuscular Volume 90.9 FL (80.0-100.0) Mean Corpuscular Hemoglobin 31.4 PG (27.0-34.0) Mean Corpuscular Hemoglobin Concent 34.5 % (32.0-36.0) Red Cell Distribution Width 12.8 % (11.6-17.2) Platelet Count 287 TH/MM3 (150-450) Mean Platelet Volume 8.8 FL (7.0-11.0) Neutrophils (%) (Auto) 82.5 % (16.0-70.0) Lymphocytes (%) (Auto) 9.8 % (9.0-44.0) Monocytes (%) (Auto) 7.3 % (0.0-8.0) Eosinophils (%) (Auto) 0.1 % (0.0-4.0) Basophils (%) (Auto) 0.3 % (0.0-2.0) Neutrophils # (Auto) 14.7 TH/MM3 (1.8-7.7) Lymphocytes # (Auto) 1.8 TH/MM3 (1.0-4.8) Monocytes # (Auto) 1.3 TH/MM3 (0-0.9) Eosinophils # (Auto) 0.0 TH/MM3 (0-0.4) Basophils # (Auto) 0.1 TH/MM3 (0-0.2) CBC Comment AUTO DIFF Differential Comment AUTO DIFF CONFIRMED Blood Urea Nitrogen 22 MG/DL (7-18) Creatinine 0.76 MG/DL (0.50-1.00) Random Glucose 294 MG/DL (74-106) Calcium Level 9.0 MG/DL (8.5-10.1) Magnesium Level 2.0 MG/DL (1.5-2.5) Sodium Level 145 MEQ/L (136-145) Potassium Level 3.1 MEQ/L (3.5-5.1) Chloride Level 110 MEQ/L (98-107) Carbon Dioxide Level 29.6 MEQ/L (21.0-32.0) Anion Gap 5 MEQ/L (5-15) Estimat Glomerular Filtration Rate 75 ML/MIN (>89) . Result Diagram: 10/21/17 0430 10/21/17 0430 Imaging Last 72 hours Impressions Chest X-Ray 10/19/17 0000 Signed Impressions: Service Date/Time: Thursday, October 19, 2017 10:36 - CONCLUSION: Mild dilatation ascending aorta Nasogastric tube in position. Chema Campbell MD FACR . Procedures 10/17/2017: NGT placement . Patient/Family Conference Present at Family Conference: With patient's family at bedside and privately and a family conference room. Patient's spouse, step son (Efren), son (Jim) and DIL (Anne) were present. . . Family Conference Location: Bedside, Consult Room Issues Discussed: * Palliative care role, purpose, approach * Additional medical, psychosocial, and spiritual history * Patients general health, functional status, and cognitive changes in the months leading up to the current hospitalization * Patient/family understanding of the current medical problems * Patient/family understanding of prognosis * Patients goals of care as best understood from advance directives and/or conversations and/or values * Current medical treatment options and benefits/burdens of those options * Likely scenarios comparing ongoing aggressive care with a transition to comfort measures only * Questions answered to the best of my ability * Palliative care contact information provided . Assessment and Plan Disease Oriented Problem List: (1) Hypertension (2) Diabetes (3) Hyperlipidemia (4) Acute CVA (cerebrovascular accident) Symptom Scale: (1) Dyspnea (2) Encephalopathy (3) Pain Pertinent Non-Medical Issues Psychosocial: Patient is originally from [place]. She has been to her current (Odilon) for approximately 25 years. Odilon has 1 adult son from a previous relationship, and Ester (who prefers to be called by her middle name- Indy) has 2 adult sons. Ester worked a [employer] in [facility] [place] [facility]. When her retired 18 years ago, she quit her job in [place]. Spiritual: Anabaptism serg Legal: Per [place] statutes, and absence of written advanced directives healthcare proxy decision-making falls to the patient's . Ethical issues impacting care: No known ethical issues impacting care at this time . Important Contacts Odilon Lake, spouse: [phone] . Prognosis Patient is a 72-year-old female who has sustained a large left-sided MCA stroke ; prognosis is guarded. The patient survives this hospitalization, she will likely have a prolonged recovery which makes her high risk for ongoing setbacks and complications. . Code Status: Alternative Code (intubation only) Plan * ALTERNATE CODE-intubation only * * Decision-making: Patient is unable to participate in medical decision making given her current clinical condition, it is unknown if she will be able to participate in the future. Per [place] statutes, and absence of written advanced directives healthcare proxy decision-making falls to the patient's . * Aggressive up to the point of cardiopulmonary resuscitation. CODE STATUS ALTERNATE CODE-intubation only. Family would like to allow the patient 7-10 days to see if there is any improvement; if there is no improvement they may consider transitioning to comfort focused care at that time. * Discussed patient with bedside nurse, Roney SEGURA and Dr. Arreguin * Palliative care contact information was provided to the patient's family. * Palliative care will continue to follow this patient throughout his/her hospitaization to build rapport, assist with symptom managment and goal clarification. * Addendum 10/21/2017 at 1430: Patient being transferred to [facility] in [place]. . Thank you for the opportunity to participate in the care of Ms. Hines . Attestation To help prompt me to consider important information that might be impacting today's encounter and assessment, information from prior notes written by myself or my colleagues may have been "brought forward" into today's note. My signature on this note, however, is an attestation that I personally performed the exam, history, and/or decision-making noted today, and, unless otherwise indicated, the interactions with patient, family, and staff as well as the review of records all occurred today. I also attest that the listed assessment and stated plan reflect my best clinical judgment today based on the combination of historical information, prior notes, and today's exam/ interactions. When time spent is documented, it refers only to time spent today by the signer, or if indicated, combined time spent today by collaborating physician/nurse practitioner. . Soraya Silveira Oct 21, 2017 11:28
[2017-10-21] MEDS ORDERED: DOPamine INJ PREMIX 500 ML IV PRN (12:15)
[2017-10-21] MEDS ORDERED: TERBUTALINE INJ 1 MG/ML AMP SQ PRN ×2 (12:15→17:00)
[2017-10-21] MEDS ORDERED: niCARdipine INJ 25 MG in SODIUM CHLOR 0.9% 250 ML INJ 250 ML IV PRN ×2 (12:15→17:00)
[2017-10-21] MEDS ORDERED: ETOMIDATE 20 MG/10 ML VIAL ONE (13:13)
[2017-10-21] MEDS ORDERED: SUCCINYLCHOLINE CHLORIDE 200 MG/10 ML VIAL ONE (13:13)
[2017-10-21] MEDS ORDERED: PROPOFOL 500 MG/50 ML INJ 50 ML ONE (13:21)
[2017-10-21] MEDS ORDERED: POTASSIUM CHLOR 20 MEQ PREMIX 100 ML IV PRN ×2 (13:30)
[2017-10-21] MEDS ORDERED: POTASSIUM CHLOR 40 MEQ PREMIX 100 ML IV PRN ×2 (13:30)
[2017-10-21] MEDS ORDERED: MAGNESIUM OXIDE 400 MG TAB PO PRN (13:30)
[2017-10-21] MEDS ORDERED: POTASSIUM PHOSPHATE INJ 30 MMOL in SODIUM CHLOR 0.9% 250 ML INJ 250 ML IV PRN (13:30)
[2017-10-21] MEDS ORDERED: MAGNESIUM SULFATE INJ 4 GM in SODIUM CHLORIDE 0.9% INJ 92 ML IV PRN (13:30)
[2017-10-21] MEDS ORDERED: MIDAZOLAM HCL 2 MG/2 ML VIAL IV PUSH PRN (13:30)
[2017-10-21] MEDS ORDERED: POTASSIUM PHOSPHATE MONOBASIC 500 MG TAB PO/TUBE PRN (13:30)
[2017-10-21] MEDS ORDERED: POTASSIUM CHLORIDE 25 MEQ EFFERVESCENT TAB PO PRN (13:30)
[2017-10-21] MEDS ORDERED: MAGNESIUM SULFATE INJ 2 GM in SODIUM CHLORIDE 0.9% INJ 96 ML IV PRN (13:30)
[2017-10-21] MEDS ORDERED: LORazepam 2 MG/ML VIAL IV PUSH PRN (13:30)
[2017-10-21] MEDS ORDERED: SODIUM PHOSPHATE INJ 30 MMOL in SODIUM CHLOR 0.9% 250 ML INJ 240 ML IV PRN (13:30)
[2017-10-21] MEDS ORDERED: ETOMIDATE 20 MG/10 ML VIAL IV PUSH ONE (13:30)
[2017-10-21] MEDS ORDERED: POTASSIUM PHOSPHATE MONOBASIC 500 MG TAB PO PRN (13:30)
--- NOTE | 2017-10-21 13:34 | PD ---
Physical Exam Date Seen by Provider: Oct 21, 2017 Time Seen by Provider: 13:00 Narrative This is a 72-year-old female who was admitted after having a large CVA. Please see hospitalist documentation for further details. On exam: Patient is resting supine on the bed. She has 100% oxygen saturations on 2 L nasal cannula. Respiratory rate is 32. Breath sounds are diminished at bases with shallow breaths. NG tube is in place. Patient is aphasic on my exam. She has right sided upper and lower extremity weakness. Data Data Last Documented VS Vital Signs Date Time Temp Pulse Resp B/P (MAP) Pulse Ox O2 Delivery O2 Flow Rate FiO2 10/17/17 09:34 80 18 204/85 (124) 97 Room Air 10/17/17 09:30 2.00 10/17/17 08:05 97.5 Orders Orders Blood Glucose (10/17/17 08:05) Oximetry (10/17/17 08:05) Iv Access Insert/Monitor (10/17/17 08:05) Ecg Monitoring (10/17/17 08:05) Oxygen Administration (10/17/17 08:05) Complete Blood Count With Diff (10/17/17 08:05) Act Partial Throm Time (Ptt) (10/17/17 08:05) Prothrombin Time / Inr (Pt) (10/17/17 08:05) Basic Metabolic Panel (Bmp) (10/17/17 08:05) Urinalysis - C+S If Indicated (10/17/17 08:05) Electrocardiogram (10/17/17:18) Chest, Single Ap (10/17/17 08:18) Ct Brain W/O Iv Contrast(Rout) (10/17/17 08:18) Urinary Catheter Insert/Apply (10/17/17 08:18) Hepatic Functional Panel (10/17/17 08:05) Magnesium (Mg) (10/17/17 08:05) Phosphorus (Po4) (10/17/17 08:05) Thyroid Stimulating Hormone (10/17/17 08:05) Nicardipine Inj (Cardene Inj) (10/17/17 08:45) Aspirin Supp (Aspirin Supp) (10/17/17 09:30) Mri Brain W/O Contrast (10/17/17 09:34) Mra Brain W/O Contrast (Cow) (10/17/17 09:34) Mra Carotids W Contrast (10/17/17 09:34) Consult Neurology (10/17/17 ) Admit To Inpatient (10/17/17 ) Nih Stroke Scale - Nihss .On admission and discharge (10/17/17 09:33) Ot Request For Service (10/17/17 09:33) Activity Bed Rest (10/17/17 09:33) Nursing Bedside Swallow Assess .ONCE (10/17/17 09:33) Scd Bilateral/Knee High KIRSTEN.QSHIFT (10/17/17 09:33) Diet Npo (10/17/17 Breakfast) Hemoglobin (Hgb) A1c (10/17/17 09:33) Lipid Profile (10/18/17 06:00) Resp Oxygen Nc Stroke (10/17/17 ) ^ Hold Medication (10/17/17 09:33) Sodium Chloride 0.9% Flush (Ns Flush) (10/17/17 21:00) Sodium Chloride 0.9% Flush (Ns Flush) (10/17/17 09:45) Bedside Glucose KIRSTEN.CSUGAR (10/17/17 09:33) ^ Discontinue Insulin Orders (10/17/17 09:33) Insulin Aspart Supplemtl Scale (Novolog (10/17/17 12:00) Dextrose 50% In López (Vial) Inj (D50w (Vi (10/17/17 09:45) Glucagon Inj (Glucagon Inj) (10/17/17 09:45) Anatomic Pathology Manager / Telemetry KIRSTEN.Q8H (10/17/17 09:33) Inpatient Certification (10/17/17 ) Atorvastatin (Lipitor) (10/18/17 21:00) Atorvastatin (Lipitor) (10/17/17 11:00) Admit Order (Ed Use Only) (10/17/17 09:36) ^ Fall Precautions (10/17/17 09:36) Basic Metabolic Panel (Bmp) (10/18/17 06:00) Echo 2d Comp With Doppler (10/18/17 ) Labs Laboratory Tests Test 10/17/17 08:20 10/17/17 09:00 White Blood Count 12.2 TH/MM3 Red Blood Count 4.30 MIL/MM3 Hemoglobin 13.2 GM/DL Hematocrit 39.7 % Mean Corpuscular Volume 92.2 FL Mean Corpuscular Hemoglobin 30.8 PG Mean Corpuscular Hemoglobin Concent 33.3 % Red Cell Distribution Width 12.4 % Platelet Count 313 TH/MM3 Mean Platelet Volume 8.6 FL Neutrophils (%) (Auto) 73.6 % Lymphocytes (%) (Auto) 18.6 % Monocytes (%) (Auto) 6.5 % Eosinophils (%) (Auto) 0.7 % Basophils (%) (Auto) 0.6 % Neutrophils # (Auto) 8.9 TH/MM3 Lymphocytes # (Auto) 2.3 TH/MM3 Monocytes # (Auto) 0.8 TH/MM3 Eosinophils # (Auto) 0.1 TH/MM3 Basophils # (Auto) 0.1 TH/MM3 CBC Comment DIFF FINAL Differential Comment Prothrombin Time 10.9 SEC Prothromb Time International Ratio 1.1 RATIO Activated Partial Thromboplast Time 23.4 SEC Blood Urea Nitrogen 13 MG/DL Creatinine 1.20 MG/DL Random Glucose 205 MG/DL Total Protein 7.3 GM/DL Albumin 3.7 GM/DL Calcium Level 8.7 MG/DL Phosphorus Level 3.3 MG/DL Magnesium Level 1.8 MG/DL Alkaline Phosphatase 84 U/L Aspartate Amino Transf (AST/SGOT) 33 U/L Alanine Aminotransferase (ALT/SGPT) 29 U/L Total Bilirubin 0.4 MG/DL Direct Bilirubin 0.1 MG/DL Sodium Level 128 MEQ/L Potassium Level 4.6 MEQ/L Chloride Level 94 MEQ/L Carbon Dioxide Level 24.2 MEQ/L Anion Gap 10 MEQ/L Estimat Glomerular Filtration Rate 44 ML/MIN Hemoglobin A1c 7.8 % Indirect Bilirubin 0.3 MG/DL Thyroid Stimulating Hormone 3rd Gen 3.110 uIU/ML Urine Collection Type CLEAN CATCH Urine Color YELLOW Urine Turbidity CLEAR Urine pH 7.5 Urine Specific Stow 1.014 Urine Protein TRACE mg/dL Urine Glucose (UA) 250 mg/dL Urine Ketones NEG mg/dL Urine Occult Blood TRACE Urine Nitrite NEG Urine Bilirubin NEG Urine Leukocyte Esterase NEG Urine RBC 0-3 /hpf Urine WBC 0-2 /hpf Urine Squamous Epithelial Cells 0-5 /hpf Microscopic Urinalysis Comment CULT NOT INDICATED MDM Medical Record Reviewed: Yes Supervised Visit with EUGENIE: No Narrative Course I was asked to intubate this patient after she had an episode of dyspnea and bradycardia. The hospitalist spoke with Dr. Barton, the police captain precinct who recommended that the patient be intubated and transferred to the [facility]. The hospitalist spoke with the patient's family and obtained consent for the procedure. The patient was intubated without difficulty. All ongoing care will be per hospitalist and police captain precinct. Procedures Procedure Narrative After the risks and benefits were discussed with the patient's family, the following procedure was performed: INTUBATION: The patient was put in optimal position for the procedure. Rapid sequence intubation was initiated by la using 20 milligrams of etomidate IV and 100 milligrams of succinylcholine IV. The patient was intubated with a 7.5 cuffed endotracheal tube using C-Mac video laryngoscopy. Tube placement was confirmed by visualization of the tube and balloon passing through the cords, capnometry.. Breath sounds were equal and well aerated bilaterally postintubation. No breath sounds over stomach. Chest x-ray is pending. Patient tolerated procedure well. Diagnosis Primary Impression: Acute CVA (cerebrovascular accident) Mckenna Estes MD Oct 21, 2017 13:34
[2017-10-21] MEDS ORDERED: MIDAZOLAM HCL 5 MG/ML VIAL (1 ML) ONE (13:40)
[2017-10-21] MEDS ORDERED: MANNITOL 12.5 GM/50 ML VIAL IV ONE (13:45)
[2017-10-21] MEDS ORDERED: SUCCINYLCHOLINE CHLORIDE 200 MG/10 ML VIAL IV PUSH ONE (14:00)
[2017-10-21] MEDS ORDERED: MANNITOL INJ 50 ML ONE (14:01)
--- NOTE | 2017-10-21 14:21 | RADRPT ---
EXAM DATE/TIME: 10/21/2017 12:37 [facility] COMPARISON: CT BRAIN W/O CONTRAST, October 18, 2017, 9:08. INDICATIONS : Cerebrovascular accident. Decreased heart rate. RADIATION DOSE: 61.85 CTDIvol (mGy) MEDICAL HISTORY : Cerebrovascular disease. Stroke Diabetes mellitus type 2.Hypertension. SURGICAL HISTORY : None. ENCOUNTER: Initial ACUITY: 1 day PAIN SCALE: Non-responsive LOCATION: cranial TECHNIQUE: Multiple contiguous axial images were obtained of the head. Using automated exposure control and adj ustment of the mA and/or kV according to patient size, radiation dose was kept as low as reasonably a chievable to obtain optimal diagnostic quality images. DICOM format image data is available electro nically for review and comparison. FINDINGS: There has been a change in the appearance of the infarction involving left MCA territory. There is so me hemorrhagic conversion. There is a focus of intervertebral hemorrhage directly adjacent to the ant erior horn of the left lateral ventricle. There is linear areas of hemorrhage scattered throughout th e more peripheral portion of the brain parenchyma in the infarct bed. There is now mass effect observ ed with left to right midline shift measuring 4 mm. There is partial effacement of the left lateral v entricle. Right lateral ventricle and other ventricles are unremarkable. No new source of infarction observed. 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 These are stable . Mucosal thickening noted within the left maxillary sinus. No air fluid level observed. Calvarium is intact. CONCLUSION: 1. 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 Lei Cast Jr., MD on October 21, 2017 at 12:48 Board Certified Radiologist. This report was verified electronically.
--- NOTE | 2017-10-21 14:23 | RADRPT ---
EXAM DATE/TIME: 10/21/2017 13:43 [facility] COMPARISON: CHEST SINGLE AP, October 19, 2017, 10:36. INDICATIONS : Post intubation. MEDICAL HISTORY : Hypertension. Diabetes mellitus type 2. CVA. SURGICAL HISTORY : Cataract. ENCOUNTER: Subsequent ACUITY: 1 day PAIN SCORE: Non-responsive. LOCATION: chest FINDINGS: 2 portable frontal views of the chest show an endotracheal tube with the tip 2 cm proximal to the car kvng. Nasogastric tube courses off the inferior margin of the film. Lungs are clear. No effusions. Hea rt is normal in size. Scoliotic spine. CONCLUSION: Lines and tubes as detailed above. Clear lungs. Lei Cast Jr., MD on October 21, 2017 at 14:19 Board Certified Radiologist. This report was verified electronically.
[2017-10-21 14:26] LABS: PHOSPHORUS 1.8 MG/DL (2.5-4.9)
[2017-10-21] MEDS: ENOXAPARIN SODIUM 30 MG/0.3 ML SYRINGE SQ SCH (15:00)
--- NOTE | 2017-10-21 15:29 | PD.CONS ---
HPI Service ns Consult Requested By Dr Barton Reason for Consult Stroke alert Primary Care Physician Unknown History of Present Illness 72-year-old white female admitted with acute altered mental status. She did not verbalize any coherent speech nor follow any commands. She was admitted to [facility]. Apparently not much was done there. She deteriorated todat requiring emergency endotracheal intubation. I was called [id number] by Dr Barton, However the patient is still not here. Review of Systems Nor possible due top her clnical condition ROS Limitations: Intubated, Altered Mental Status, Unresponsive Past Family Social History Allergies: Coded Allergies: Penicillins (Verified Allergy, Unknown, Unknown, 10/17/17) Past Medical History Hypertension Hyperlipidemia diabetes Active Ordered Medications Current Medications Nicardipine HCl 25 mg/Sodium Chloride 250 ml @ 50 mls/hr TITRATE PRN IV Blood pressure management Last administered on 10/17/17at 09:20; Start 10/17/17 at 08: 45; Stop 10/17/17 at 19:52; Status DC Aspirin (Aspirin Supp) 300 mg ONCE ONCE RECTAL Last administered on 10/17/17at 10:14; Start 10/17/17 at 09:30; Stop 10/17/17 at 09:31; Status DC Sodium Chloride (NS Flush) 2 ml BID IV FLUSH Last administered on 10/21/17at 10: 31; Start 10/17/17 at 21:00 Sodium Chloride (NS Flush) 2 ml UNSCH PRN IV FLUSH FLUSH AFTER USING IV ACCESS ; Start 10/17/17 at 09:45 Insulin Aspart (NovoLOG SUPPLEMENTAL SCALE) 1 ACHS SQ Last administered on 10/19at 13:24; Start 10/17/17 at 12:00; Stop 10/19/17 at 15:06; Status DC Dextrose (D50w (Vial) Inj) 50 ml UNSCH PRN IV PUSH HYPOGLYCEMIA-SEE COMMENTS; Start 10/17/17 at 09:45; Stop 10/19/17 at 15:06; Status DC Glucagon (Glucagon Inj) 1 mg UNSCH PRN OTHER HYPOGLYCEMIA-SEE COMMENTS; Start 10/17/17 at 09:45; Stop 10/19/17 at 15:06; Status DC Atorvastatin Calcium (Lipitor) 40 mg HS PO Last administered on 10/20/17at 20:51 ; Start 10/18/17 at 21:00 Atorvastatin Calcium (Lipitor) 40 mg ONCE ONCE PO ; Start 10/17/17 at 11:00; Stop 10/17/17 at 11:01; Status DC Sodium Chloride 1,000 ml @ 75 mls/hr [id number] IV Last administered on at 20:39; Start 10/17/17 at 10:30; Stop 10/20/17 at 13:40; Status DC Doxycycline Hyclate 100 mg/ Sodium Chloride 100 ml @ 100 mls/hr Q12H IV Last administered on 10/19/17at 13:23; Start 10/17/17 at 12:00; Stop 10/19/17 at 15:11 ; Status DC Miscellaneous Information Patient in critical care unit? Ass... [id number] .XX Last administered on 10/17/17at 11:00; Start 10/17/17 at 11:00 Chlorhexidine Gluconate (Chlorhexidine 2% Cloth) 3 pack DAILY@04 TOPICAL Last administered on 10/21/17at 04:00; Start 10/18/17 at 04:00; Stop 10/22/17 at 04:01 Chlorhexidine Gluconate (Chlorhexidine 2% Cloth) 3 pack UNSCH PRN TOPICAL HYGIENIC CARE; Start 10/17/17 at 11:00; Stop 10/22/17 at 10:57 Gadobenate Dimeglumine (Multihance Pf Inj) 15 ml STK-MED ONCE IV Last administered on 10/17/17at 12:02; Start 10/17/17 at 12:02; Stop 10/17/17 at 12:03 ; Status DC Nicardipine HCl 25 mg/Sodium Chloride 260 ml @ 52 mls/hr TITRATE PRN IV Blood pressure management Last administered on 10/21/17at 08:14; Start 10/17/17 at 20: 00; Stop 10/21/17 at 12:11; Status DC Ondansetron HCl (Zofran Inj) 4 mg Q6HR PRN IV PUSH NAUSEA OR VOMITING Last administered on 10/18/17at 00:48; Start 10/18/17 at 00:45 Prochlorperazine Edisylate (Compazine Inj) 5 mg Q4H PRN IV PUSH N/V not relieved with Zofran; Start 10/18/17 at 00:45 Labetalol HCl (Trandate Inj) 20 mg ONCE ONCE IV PUSH ; Start 10/19/17 at 15:00 ; Stop 10/19/17 at 15:07; Status DC Atenolol (Tenormin) 25 mg DAILY PO Last administered on 10/20/17at 08:10; Start 10/19/17 at 15:00; Stop 10/20/17 at 16:26; Status DC Verapamil HCl (Isoptin) 120 mg BID PO Last administered on 10/21/17 10:30; Start 10/19/17 at 21:00 Aspirin (Aspirin Supp) 300 mg ONCE ONCE RECTAL Last administered on 10/19/17at 15:00; Start 10/19/17 at 15:00; Stop 10/19/17 at 15:01; Status DC Enoxaparin Sodium (Lovenox Inj) 30 mg Q24H SQ Last administered on 10/20/17at 15 :39; Start 10/19/17 at 15:00 Docusate Sodium (Colace) 100 mg BID PO Last administered on 10/21/17 10:30; Start 10/19/17 at 15:00 Losartan Potassium (Cozaar) 100 mg DAILY PO Last administered on 10/21/17at 10: 30; Start 10/19/17 at 15:00 Insulin Human Regular (NovoLIN R SUPPLEMENTAL SCALE) 1 ACHS SLIDING SCALE SQ Last administered on 10/21/17at 14:35; Start 10/19/17 at 17:00 Diltiazem HCl (Cardizem Inj) 10 mg ONCE ONCE IV Last administered on at 15:16; Start 10/19/17 at 15:15; Stop 10/19/17 at 15:16; Status DC Insulin Detemir (Levemir Inj) 10 units HS SQ Last administered on 10/20/17at 20: 51; Start 10/19/17 at 21:00; Stop 10/21/17 at 07:44; Status DC Potassium Bicarb/ Potassium Chloride (K-Lyte Cl Eff) 50 meq Q1H NG Last administered on 10/20/17at 08:11; Start 10/20/17 at 08:00; Stop 10/20/17 at 09:01 ; Status DC Potassium Chloride 100 ml @ 50 mls/hr ONCE ONCE IV Last administered on at 07:56; Start 10/20/17 at 08:00; Stop 10/20/17 at 09:59; Status DC Atenolol (Tenormin) 25 mg BID PO Last administered on 10/21/17at 10:30; Start at 21:00 Aspirin (Aspirin Supp) 300 mg DAILY RECTAL ; Start 10/21/17 at 09:00 Potassium Bicarb/ Potassium Chloride (K-Lyte Cl Eff) 25 meq ONCE ONCE PO Last administered on 10/20/17at 23:21; Start 10/20/17 at 23:00; Stop 10/20/17 at 23:01; Status DC Potassium Bicarb/ Potassium Chloride (K-Lyte Cl Eff) 50 meq ONCE ONCE PO Last administered on 10/21/17at 10:31; Start 10/21/17 at 07:45; Stop 10/21/17 at 07:52; Status DC Potassium Chloride 100 ml @ 50 mls/hr BOLUS ONCE IV Last administered on 10/21at 10:18; Start 10/21/17 at 07:45; Stop 10/21/17 at 09:44; Status DC Insulin Detemir (Levemir Inj) 10 units BID SQ Last administered on 10/21/17at 09 :00; Start 10/21/17 at 09:00 Hydralazine HCl (Apresoline) 10 mg Q6HR NG Last administered on 10/21/17at 08:15 ; Start 10/21/17 at 08:15; Stop 10/21/17 at 12:11; Status DC Potassium Chloride 100 ml @ 50 mls/hr BOLUS ONCE IV ; Start 10/21/17 at 11:15 ; Stop 10/21/17 at 13:14; Status DC Nicardipine HCl 25 mg/Sodium Chloride 260 ml @ 52 mls/hr TITRATE PRN IV Blood pressure management; Start 10/21/17 at 12:15 Dopamine HCl/ Dextrose 500 ml @ 7.121 mls/ hr TITRATE PRN IV Blood Pressure Management/ HR ; Start 10/21/17 at 12:15 Terbutaline Sulfate (Brethine Inj) 1 mg UNSCH PRN SQ For Extravasation; Start 10/21/17 at 12:15 Succinylcholine Chloride (Quelicin Inj) 200 mg STK-MED ONCE .ROUTE ; Start 10/21 at 13:13; Stop 10/21/17 at 13:14; Status DC Etomidate (Amidate Inj) 20 mg STK-MED ONCE .ROUTE ; Start 10/21/17 at 13:13; Stop 10/21/17 at 13:14; Status DC Propofol 50 ml @ As Directed STK-MED ONCE .ROUTE Last administered on at 14:24; Start 10/21/17 at 13:21; Stop 10/21/17 at 13:22; Status DC Famotidine (Pepcid Inj) 20 mg Q12HR IV PUSH ; Start 10/21/17 at 21:00 Midazolam HCl (Versed Inj) 2 mg Q1H PRN IV PUSH SEDATION; Start 10/21/17 at 13: 30 Lorazepam (Ativan Inj) 1 mg Q1H PRN IV PUSH Agitation/Sedation; Start 10/21/17 at 13:30 Chlorhexidine Gluconate (Peridex 0.12% Liq) 15 ml BID@08,20 MT ; Start 10/21/17 at 20:00 Propofol 100 ml @ 1.899 mls/ hr TITRATE PRN IV SEDATION; Start 10/21/17 at 13: 30 Potassium Chloride 100 ml @ 50 mls/hr Q2H PRN IV For Potassium 2.8 - 3.2 mEq/L ; Start 10/21/17 at 13:30 Potassium Chloride 100 ml @ 50 mls/hr Q2H PRN IV For Potassium 2.8 - 3.2 mEq/L ; Start 10/21/17 at 13:30 Potassium Bicarb/ Potassium Chloride (K-Lyte Cl Eff) 50 meq UNSCH PRN PO For Potassium 3.3 - 3.5 mEq/L; Start 10/21/17 at 13:30 Potassium Chloride 100 ml @ 25 mls/hr UNSCH PRN IV For Potassium 3.3 - 3.5 mEq /L; Start 10/21/17 at 13:30 Potassium Chloride 100 ml @ 50 mls/hr Q2H PRN IV For Potassium 3.3 - 3.5 mEq/L ; Start 10/21/17 at 13:30 Magnesium Sulfate 4 gm/Sodium Chloride 100 ml @ 50 mls/hr UNSCH PRN IV For Magnesium 0.9 - 1.1 mg/dL; Start 10/21/17 at 13:30 Magnesium Oxide (Mag-Ox) 800 mg UNSCH PRN PO For Magnesium 1.2 - 1.6 mg/dL; Start 10/21/17 at 13:30 Magnesium Sulfate 2 gm/Sodium Chloride 100 ml @ 50 mls/hr UNSCH PRN IV For Magnesium 1.2 - 1.6 mg/dL; Start 10/21/17 at 13:30 Potassium Phosphate (K-Phos) 2,000 mg Q4H PRN PO For Phosphorus < 2.5 mg/dL; Start 10/21/17 at 13:30 Sodium Phosphate 30 mmol/Sodium Chloride 250 ml @ 42 mls/hr UNSCH PRN IV For Phosphorus < 2.5 mg/dL; Start 10/21/17 at 13:30 Potassium Phosphate (K-Phos) 2,000 mg UNSCH PRN PO/TUBE SEE LABEL COMMENTS; Start 10/21/17 at 13:30 Potassium Phosphate 30 mmol/ Sodium Chloride 260 ml @ 42 mls/hr UNSCH PRN IV SEE LABEL COMMENTS; Start 10/21/17 at 13:30 Etomidate (Amidate Inj) 20 mg ONCE ONCE IV PUSH Last administered on at 14:26; Start 10/21/17 at 13:30; Stop 10/21/17 at 14:02; Status DC Succinylcholine Chloride (Quelicin Inj) 100 mg ONCE ONCE IV PUSH Last administered on 10/21/17at 14:23; Start 10/21/17 at 14:00; Stop 10/21/17 at 14:01 ; Status DC Fentanyl Citrate 250 ml @ 5 mls/hr TITRATE PRN IV SEDATION; Start 10/21/17 at 13:45 Mannitol (Mannitol Inj) 25 gm ONCE ONCE IV Last administered on 10/21/17at 14: 10; Start 10/21/17 at 13:45; Stop 10/21/17 at 14:01; Status DC Midazolam HCl (Versed Inj) 5 mg STK-MED ONCE .ROUTE Last administered on at 14:24; Start 10/21/17 at 13:40; Stop 10/21/17 at 13:41; Status DC Mannitol 50 ml @ As Directed STK-MED ONCE .ROUTE ; Start 10/21/17 at 14:01; Stop 10/21/17 at 14:02; Status DC Sodium Chloride 188 meq/Sodium Chloride 1,047 ml @ 60 mls/hr [id number] IV ; Start 10/21/17 at 16:00 Family History sister having cervical cancer. Social History Lives with her . She has been smoking for about 20 years. Physical Exam Vital Signs Vital Signs Date Time Temp Pulse Resp B/P (MAP) Pulse Ox O2 Delivery O2 Flow Rate FiO2 10/21/17 14:06 84 18 149/59 (89) 100 10/21/17 14:00 84 18 149/59 (89) 100 10/21/17 13:57 96 23 173/79 (110) 100 10/21/17 13:54 94 21 168/101 (123) 100 10/21/17 13:30 50 10/21/17 13:15 100 50 10/21/17 13:00 98 25 159/78 (105) 100 10/21/17 12:00 98.8 36 37 102/48 (66) 95 10/21/17 12:00 36 10/21/17 11:00 90 28 133/57 (82) 98 10/21/17 11:00 90 10/21/17 10:00 96 10/21/17 10:00 96 25 144/58 (86) 95 10/21/17 09:00 102 10/21/17 09:00 102 27 157/62 (93) 98 10/21/17 08:20 97 Nasal Cannula 2.50 10/21/17 08:14 100 156/61 10/21/17 08:11 100 156/61 10/21/17 08:00 100 10/21/17 08:00 98.5 100 23 156/61 (92) 99 10/21/17 07:00 102 28 165/72 (103) 98 10/21/17 06:00 96 24 159/64 (95) 98 10/21/17 06:00 96 10/21/17 05:30 90 21 175/78 (110) 100 10/21/17 05:30 96 175/78 10/21/17 05:00 78 16 152/60 (90) 100 2/14/18 04:30 90 23 158/60 (92) 99 10/21/17 04:00 97.8 94 33 159/65 (96) 99 10/21/17 03:30 92 31 161/66 (97) 98 10/21/17 03:00 90 29 156/69 (98) 97 10/21/17 02:30 88 23 160/64 (96) 98 10/21/17 02:00 90 29 165/62 (96) 98 10/21/17 02:00 90 10/21/17 02:00 90 165/62 10/21/17 01:30 78 25 155/55 (88) 98 10/21/17 01:00 80 30 157/73 (101) 98 10/21/17 00:50 80 29 152/65 (94) 97 10/21/17 00:16 72 28 151/58 (89) 98 10/21/17 00:01 98.0 72 31 147/58 (87) 97 10/21/17 00:00 72 10/20/17 23:31 68 25 149/61 (90) 98 10/20/17 23:16 70 31 151/62 (91) 96 10/20/17 23:01 70 31 145/58 (87) 94 10/20/17 22:46 72 28 147/59 (88) 99 10/20/17 22:31 72 32 139/60 (86) 98 10/20/17 22:16 72 28 142/57 (85) 98 10/20/17 22:01 72 32 137/55 (82) 98 10/20/17 22:00 72 10/20/17 21:46 72 32 129/55 (79) 97 10/20/17 21:35 74 25 125/56 (79) 92 10/20/17 21:34 72 125/56 10/20/17 21:14 69 134/59 10/20/17 21:13 68 10/20/17 21:01 106 31 155/61 (92) 94 10/20/17 20:31 110 31 158/65 (96) 95 10/20/17 20:01 98.8 108 32 165/61 (95) 95 18 20:00 108 10/20/17 19:46 108 32 152/68 (96) 95 10/20/17 19:38 95 21 10/20/17 19:31 106 27 155/66 (95) 96 10/20/17 19:24 106 32 159/65 (96) 95 10/20/17 19:16 108 32 151/65 (93) 94 10/20/17 19:01 104 30 149/69 (95) 94 10/20/17 18:00 102 169/72 (104) 10/20/17 17:16 104 23 147/70 (95) 96 10/20/17 17:01 98.7 104 31 149/63 (91) 95 10/20/17 16:46 102 33 155/63 (93) 96 10/20/17 16:31 102 28 145/64 (91) 97 10/20/17 16:16 102 31 142/66 (91) 94 10/20/17 16:15 102 29 94 10/20/17 16:01 102 31 152/60 (90) 97 10/20/17 15:46 98 25 147/61 (89) 94 10/20/17 15:31 100 30 152/72 (98) 97 10/20/17 15:31 100 30 152/72 (98) 97 Physical Exam The patient is intubated and sedated. Localizes to painful stimulus with left upper and lower extremities. Cranial Nerves: Pupils equal, round, reactive to light. Eyes appear conjugated. There was no nystagmus, no papilledema. Face musculature appeared symmetrical at rest. On grimus, right facial supranuclear drop. Face sensation, olfaction, visual johnson, and hearing cannot be adequately assessed due to his neurological condition. The patient has a corneal reflex. She has a gag reflex. The sternocleidomastoid and trapezius are symmetrical. Cervical Spine: Her neck is soft, supple, without nuchal rigidity. Motor: Her muscle tone and bulk are normal. She moves purposefully left upper and lower extremity with right hemiplegia Reflexes: Deep tendon reflexes are 1+ and symmetrical in the biceps, triceps, and brachioradialis, bilaterally, in the upper extremities. In the lower extremities, the patellar and ankles are 1+, bilaterally. There is a bilateral plantar flexion response. There is no clonus or other abnormal reflexes noted. Sensory: On examination there is response to painful stimuli, localizing with left upper and lower extremities.Right hemiplegia Cerebellar: Examination cannot be adequately assessed due to the patient's neurological condition. Laboratory Laboratory Tests Test 10/20/17 18:00 10/21/17 04:30 10/21/17 14:05 Potassium Level 3.2 3.1 5.0 Magnesium Level 2.0 2.0 White Blood Count 17.9 Red Blood Count 4.43 Hemoglobin 13.9 Hematocrit 40.2 Mean Corpuscular Volume 90.9 Mean Corpuscular Hemoglobin 31.4 Mean Corpuscular Hemoglobin Concent 34.5 Red Cell Distribution Width 12.8 Platelet Count 287 Mean Platelet Volume 8.8 Neutrophils (%) (Auto) 82.5 Lymphocytes (%) (Auto) 9.8 Monocytes (%) (Auto) 7.3 Eosinophils (%) (Auto) 0.1 Basophils (%) (Auto) 0.3 Neutrophils # (Auto) 14.7 Lymphocytes # (Auto) 1.8 Monocytes # (Auto) 1.3 Eosinophils # (Auto) 0.0 Basophils # (Auto) 0.1 CBC Comment AUTO DIFF Differential Comment AUTO DIFF CONFIRMED Blood Urea Nitrogen 22 Creatinine 0.76 Random Glucose 294 Calcium Level 9.0 Sodium Level 145 Chloride Level 110 Carbon Dioxide Level 29.6 Anion Gap 5 Estimat Glomerular Filtration Rate 75 Phosphorus Level 1.8 Result Diagram: 10/21/17 0430 10/21/17 1405 Imaging Last 48 hours Impressions Chest X-Ray 10/21/17 1339 Signed Impressions: Service Date/Time: Saturday, October 21, 2017 13:43 - CONCLUSION: Lines and tubes as detailed above. Clear lungs. Lei Cast Jr., MD Head CT 10/21/17 0000 Signed Impressions: Service Date/Time: Saturday, October 21, 2017 12:37 - CONCLUSION: 1. 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 Lei Cast Jr., MD Attending Statement Stroke. It is now too late for any intervention,She has lost her window for TPA adminitration. recommend maximun medical management with mannitol, 3% NaCl via central line Pulmonary. Intubated. Aggressive pulmonary toilette, nasotracheal suction, and breathing treatments with nebulizers. Renal. monitor closely urine output, BUN and creatinine Endocrine. Monitor serial Acu checks and SSI as needed in detail ID monitor for signs of infection Protonix for stress ulcer prophylaxis Francisco J hose and SCD's for DVT prophylaxis Further recommendations will be provided depending on the patient's clinical evaluation and follow up studies. Godwin Tello MD Oct 21, 2017 15:29
--- NOTE | 2017-10-21 15:39 | PD.CONS ---
HPI Service Critical Care Medicine Consult Requested By Reason for Consult Critical care management Primary Care Physician Unknown History of Present Illness 72-year-old female who recently presented to hospital on October 17, 2017 because sometime in the morning, her found her on the couch almost motionless, slouching in a reclining position. He attempted to stimulator but she only mild response. It was indicated that time that she was moving both her legs but did not notice any movement in her arms. The patient was unable to communicate and no coherent speech, was unable to follow commands. The last time that she is notably normal was the night prior to her going to bed. She had been treating herself for a head cold for approximately a week prior. She was seen in urgent care the day before coming to the hospital and prescribed some kind of antibiotic. As indicated that her blood glucoses were 400 at the urgent care center. Ambulance was called and the patient was brought to the emergency department for evaluation. Patient was not a candidate for TPA at that time due to unknown time frame of onset of symptoms. Patient had workup done in found to have significant hypertension, CT scan did show increased density involving the left MCA as compared to right which is concerning for acute thrombosis. Patient was admitted to the hospital for further evaluation and management. Patient had MRI, MRA performed which did show very large evolving left MCA CVA. Patient clinical condition did not improve, patient was still unable to communicate, unable to open eyes, pupils remained round and reactive to light. Patient was doing well and today on examination she actually hollowed commanded by gripping my hand with her left hand. Patient had been on Cardene and blood pressure medication has been adjusted to maintain systolic blood pressure 140-160. Nursing staff notified me that the patient had acute onset of bradycardia with heart rate in the 30s. At that time I notified Dr. Barton and stat CT was performed. CT did indicate significant worsening of the stroke with hemorrhagic conversion, midline shift. Patient was emergently intubated for airway support. Started hyperventilation to maintain End tidal CO2 30-36, 25 g mannitol IV given, head of bed raised at 45 . Patient started on 2% saline solution with monitoring sodium every 6 hours. Stat consultation to neurosurgery was performed. I personally discussed the case with Amy, the PA that works with Dr. Tello. I discussed his case will horse race timer for Dr. Barton, Dr. Thompson. Stat transfer to the main hospital was requested. Review of Systems ROS Limitations: Clinical Condition Past Family Social History Allergies: Coded Allergies: Penicillins (Verified Allergy, Unknown, Unknown, 10/17/17) Past Medical History Unable to obtain any information from the patient, information taken from medical records Acute large left MCA CVA Hypertension Hyperlipidemia Diabetes Past Surgical History Unable to obtain any information from the patient, information taken from medical records Bilateral cataract surgery Reported Medications Reported Meds & Active Scripts Active Reported Verapamil (Verapamil HCl) 120 Mg Tab 120 Mg PO BID Metformin (Metformin HCl) 1,000 Mg Tab 1,000 Mg PO BIDPC Atenolol 25 Mg Tab 25 Mg PO DAILY Losartan (Losartan Potassium) 100 Mg Tab 100 Mg PO DAILY Doxycycline Hyclate 100 Mg Cap 100 Mg PO BID Family History Unable to obtain any information from the patient, information taken from medical records Family history significant for sister having cervical cancer Social History Unable to obtain any information from the patient, information taken from medical records Records indicate patient does live at home with her , patient smoked for over 20 years. Physical Exam Vital Signs Vital Signs Date Time Temp Pulse Resp B/P (MAP) Pulse Ox O2 Delivery O2 Flow Rate FiO2 10/21/17 14:44 100 52 10/21/17 14:06 84 18 149/59 (89) 100 10/21/17 14:00 84 18 149/59 (89) 100 10/21/17 13:57 96 23 173/79 (110) 100 10/21/17 13:54 94 21 168/101 (123) 100 10/21/17 13:30 50 10/21/17 13:15 100 50 10/21/17 13:00 98 25 159/78 (105) 100 10/21/17 12:00 98.8 36 37 102/48 (66) 95 10/21/17 12:00 36 10/21/17 11:00 90 28 133/57 (82) 98 10/21/17 11:00 90 10/21/17 10:00 96 10/21/17 10:00 96 25 144/58 (86) 95 10/21/17 09:00 102 10/21/17 09:00 102 27 157/62 (93) 98 10/21/17 08:20 97 Nasal Cannula 2.50 10/21/17 08:14 100 156/61 10/21/17 08:11 100 156/61 10/21/17 08:00 100 10/21/17 08:00 98.5 100 23 156/61 (92) 99 10/21/17 07:00 102 28 165/72 (103) 98 10/21/17 06:00 96 24 159/64 (95) 98 10/21/17 06:00 96 10/21/17 05:30 90 21 175/78 (110) 100 10/21/17 05:30 96 175/78 10/21/17 05:00 78 16 152/60 (90) 100 10/21/17 04:30 90 23 158/60 (92) 99 10/21/17 04:00 97.8 94 33 159/65 (96) 99 10/21/17 03:30 92 31 161/66 (97) 98 10/21/17 03:00 90 29 156/69 (98) 97 10/21/17 02:30 88 23 160/64 (96) 98 10/21/17 02:00 90 29 165/62 (96) 98 10/21/17 02:00 90 10/21/17 02:00 90 165/62 10/21/17 01:30 78 25 155/55 (88) 98 10/21/17 01:00 80 30 157/73 (101) 98 10/21/17 00:50 80 29 152/65 (94) 97 10/21/17 00:16 72 28 151/58 (89) 98 10/21/17 00:01 98.0 72 31 147/58 (87) 97 10/21/17 00:00 72 10/20/17 23:31 68 25 149/61 (90) 98 10/20/17 23:16 70 31 151/62 (91) 96 10/20/17 23:01 70 31 145/58 (87) 94 10/20/17 22:46 72 28 147/59 (88) 99 10/20/17 22:31 72 32 139/60 (86) 98 10/20/17 22:16 72 28 142/57 (85) 98 10/20/17 22:01 72 32 137/55 (82) 98 10/20/17 22:00 72 10/20/17 21:46 72 32 129/55 (79) 97 10/20/17 21:35 74 25 125/56 (79) 92 10/20/17 21:34 72 125/56 10/20/17 21:14 69 134/59 10/20/17 21:13 68 10/20/17 21:01 106 31 155/61 (92) 94 10/20/17 20:31 110 31 158/65 (96) 95 10/20/17 20:01 98.8 108 32 165/61 (95) 95 10/20/17 20:00 108 10/20/17 19:46 108 32 152/68 (96) 95 10/20/17 19:38 95 21 10/20/17 19:31 106 27 155/66 (95) 96 10/20/17 19:24 106 32 159/65 (96) 95 10/20/17 19:16 108 32 151/65 (93) 94 10/20/17 19:01 104 30 149/69 (95) 94 10/20/17 18:00 102 169/72 (104) 10/20/17 17:16 104 23 147/70 (95) 96 10/20/17 17:01 98.7 104 31 149/63 (91) 95 10/20/17 16:46 102 33 155/63 (93) 96 10/20/17 16:31 102 28 145/64 (91) 97 10/20/17 16:16 102 31 142/66 (91) 94 10/20/17 16:15 102 29 94 10/20/17 16:01 102 31 152/60 (90) 97 10/20/17 15:46 98 25 147/61 (89) 94 10/20/17 15:31 100 30 152/72 (98) 97 10/20/17 15:31 100 30 152/72 (98) 97 Physical Exam GENERAL: Well-developed, well-nourished, patient has decreased mental status, patient does squeeze her hand on the left side when asked HEENT: Head is normocephalic without any lesions or masses noted. Eyes: Conjunctivae were clear. NECK: Supple without any masses. Trachea midline no deviation. No JVD, CARDIAC: Regular rhythm, regular rate. S1/S2 are heard. No murmurs gallops or rubs. LUNGS: Clear to auscultation bilaterally. No wheeze, rhonchi or rales. No use of accessory muscles on inspiration or expiration. ABDOMEN: Soft, nontender. Nondistended. Bowel sounds heard in all 4 quadrants. No organomegaly or masses. Negative rebound, negative guarding EXTREMITIES: No edema, pulses are equal bilaterally. No cyanosis or clubbing NEUROLOGY: Patient with decreased mental status. Patient has good reflex response to the left side. However she is hyperextending her right ankle. Only reflex response to repeated plantar reflex of the right lower extremity (Sedated, orally intubated on mechanical ventilation at the time of my evaluation following arrival to [facility]. Pupils 3 mm bilaterally reacting actively to light. Withdraws left upper extremity with painful stimuli, dense and EKG on the right plantars extensor bilaterally) Laboratory Laboratory Tests Test 10/20/17 18:00 10/21/17 04:30 10/21/17 14:05 10/21/17 14:35 Potassium Level 3.2 3.1 5.0 Magnesium Level 2.0 2.0 White Blood Count 17.9 Red Blood Count 4.43 Hemoglobin 13.9 Hematocrit 40.2 Mean Corpuscular Volume 90.9 Mean Corpuscular Hemoglobin 31.4 Mean Corpuscular Hemoglobin Concent 34.5 Red Cell Distribution Width 12.8 Platelet Count 287 Mean Platelet Volume 8.8 Neutrophils (%) (Auto) 82.5 Lymphocytes (%) (Auto) 9.8 Monocytes (%) (Auto) 7.3 Eosinophils (%) (Auto) 0.1 Basophils (%) (Auto) 0.3 Neutrophils # (Auto) 14.7 Lymphocytes # (Auto) 1.8 Monocytes # (Auto) 1.3 Eosinophils # (Auto) 0.0 Basophils # (Auto) 0.1 CBC Comment AUTO DIFF Differential Comment AUTO DIFF CONFIRMED Blood Urea Nitrogen 22 Creatinine 0.76 Random Glucose 294 Calcium Level 9.0 Sodium Level 145 Chloride Level 110 Carbon Dioxide Level 29.6 Anion Gap 5 Estimat Glomerular Filtration Rate 75 Phosphorus Level 1.8 Blood Gas Puncture Site RT RADIAL Blood Gas Patient Temperature 37.0 Blood Gas HCO3 25 Blood Gas Base Excess 1.7 Blood Gas Oxygen Saturation 97 Arterial Blood pH 7.51 Arterial Blood Partial Pressure CO2 31 Arterial Blood Partial Pressure O2 181 Arterial Blood Oxygen Content 18.2 Arterial Blood Carboxyhemoglobin 1.3 Arterial Blood Methemoglobin 1.0 Blood Gas Hemoglobin 13.0 Oxygen Delivery Device VENTILATOR Blood Gas Ventilator Setting PRVC/AC Blood Gas Inspired Oxygen 50 Result Diagram: 10/21/17 0430 10/21/17 1405 Imaging Last Impressions Chest X-Ray 10/21/17 1339 Signed Impressions: Service Date/Time: Saturday, October 21, 2017 13:43 - CONCLUSION: Lines and tubes as detailed above. Clear lungs. Lei Cast Jr., MD Head CT 10/21/17 0000 Signed Impressions: Service Date/Time: Saturday, October 21, 2017 12:37 - CONCLUSION: 1. 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 Lei Cast Jr., MD Abdomen X-Ray 10/18/17 0000 Signed Impressions: Service Date/Time: Wednesday, October 18, 2017 17:20 - CONCLUSION: Gastric tube tip and side-port project within the stomach. Lei Kerr MD Neck Magnetic Resonance Angiography 10/17/17933 Signed Impressions: Service Date/Time: Tuesday, October 17, 2017 11:17 - CONCLUSION: Mild posterior soft plaque in left carotid bulb non-stenotic. Slit like, pinch stenosis at the origin of the right internal carotid artery. Poor visualization origin of the dominant left vertebral artery . Bilateral internal carotids in the siphon are somewhat irregular and poorly visualized however intracranially there is absence of flow in the left middle cerebral artery. Raj Reinoso MD Head Magnetic Resonance Angiography 10/17/17933 Signed Impressions: Service Date/Time: Tuesday, October 17, 2017 11:17 - CONCLUSION: Complete occlusion of the left MCA corresponding with the hyperdense left MCA seen on comparison CT. Mary Jane Caballero MD Brain MRI 10/17/1734 Signed Impressions: Service Date/Time: Tuesday, October 17, 2017 11:17 - CONCLUSION: Acute left MCA stroke Raj Reinoso MD Assessment and Plan Problem List: (1) Acute CVA (cerebrovascular accident) ICD Code: I63.9 - Cerebral infarction, unspecified Status: Acute (2) Major neurological deficit ICD Code: R29.818 - Other symptoms and signs involving the nervous system (3) Aphasia due to acute stroke ICD Code: I63.9 - Cerebral infarction, unspecified; R47.01 - Aphasia (4) Right hemiplegia ICD Code: G81.91 - Hemiplegia, unspecified affecting right dominant side (5) Encephalopathy ICD Code: G93.40 - Encephalopathy, unspecified (6) Leukocytosis ICD Code: D72.829 - Elevated white blood cell count, unspecified (7) Hypertension ICD Code: I10 - Essential (primary) hypertension (8) Hyperlipidemia ICD Code: E78.5 - Hyperlipidemia, unspecified (9) Diabetes ICD Code: E11.9 - Type 2 diabetes mellitus without complications Assessment and Plan NEUROLOGY Acute left MCA territory ischemic CVA secondary to occluded left MCA with significant cerebral edema and mass effect with minimal hemorrhagic conversion [id number] midline shift 4 mm Right hemiplegia Aphasia Encephalopathy Monitor neurological function, every hour CT scan 10/21 shows hemorrhagic conversion of left MCA territory infarction now with 4 mm of [id number] midline shift Keep head of bed 45 Started 2% saline solution 25 g mannitol IV Q6hrly Monitor sodium/ osmolality every 6 hours Neurosurgical consultation has been requested and patient evaluated by Dr. Tello. Patterson placed for ICP monitoring. ICP 5 Propofol/fentanyl for sedation to keep RASS -2 Neurology following the patient PT/OT is following the patient PULMONOLOGY Intubated for airway support/protection Patient was intubated by ER physician Dr. Huntley Ventilator bundle PRVC 18/500/1.0/5+/50% Monitor end-tidal CO2 and adjust respirations the to keep end-tidal CO2 30-35 No weaning trials still decrease of cerebral edema and midline shift CARDIOLOGY Hypertension, controlled Hyperlipidemia Acute bradycardia Monitor blood pressure and keep map greater than 65 Dopamine as needed to keep heart rate greater than 50 Given fluid bolus with normal saline for hypotension and started on Levophed for pressor support. Echocardiogram does indicate ejection fraction 60-65% with hyperdynamic systolic Cardene drip to keep systolic blood pressure less than 180 Hold Atenolol 25 mg twice daily/losartan 100 mg daily/verapamil 120 mg twice daily in view of hypotension LDL 73, patient started on Lipitor 40 mg daily GASTROENTEROLOGY Dysphagia NG tube is in place at this time Tube feeding at goal of Jevity 1.5 with goal of 45 mL/hour, dietary following GI protection with Pepcid Speech therapy following the patient RENAL Monitor renal function ICU electrolyte replacement protocol 2% saline as 60 mL's per hour INFECTIOUS DISEASE Leukocytosis No acute signs of infection at this time Continue monitor for infection Obtain blood cultures, sputum culture, influenza testing ENDOCRINOLOGY Diabetes Accu-Cheks with sliding scale insulin Levemir 10 units every 12 hours Hemoglobin A1c 7.8 TSH 3.11 HEMATOLOGY Hemoglobin has remained stable, coagulation factors are normal, platelet count is normal Continue monitor and address as needed PROPHYLAXIS GI protection with Pepcid DVT prevention with Lovenox and sequential compression devices LINES Right subclavian central line placed on 10/21 CODE STATUS Full code Critical care time excluding procedures 60 minutes Addendum: Patient seen and examined following arrival to [facility]. Discussed with Van SEGURA earlier. Agree with findings assessment and plan as outlined above. Patient remains sedated, orally intubated on mechanical ventilation. Continue sedation with propofol and fentanyl gtt. Levophed for pressor support. Neuro checks as ordered. ICP monitoring. Patterson placed by Dr. Tello and central line placed by myself. Placement in progress by respiratory therapy. Condition critical. Prognosis is extremely guarded with dominant hemisphere stroke. Palliative care following to assist with deciding goals of therapy. Roney Marroquin Oct 21, 2017 15:39 Celio Thompson MD Oct 21, 2017 17:28
[2017-10-21] MEDS: PROPOFOL 1000 MG/100 ML INJ 100 ML IV PRN (15:47)
[2017-10-21] MEDS: SODIUM CHLORIDE 23.4% INJ 188 MEQ in SODIUM CHLOR 0.9% 1000 ML INJ 1,000 ML IV SCH (16:00)
[2017-10-21] MEDS ORDERED: MORPHINE SULFATE 2 MG/ML INJ ONE (16:09)
--- NOTE | 2017-10-21 16:31 | PD.OP ---
Operative Report Date of Surgery: Oct 21, 2017 Preoperative Diagnosis: Left middle cerebral artery infarction Postoperative Diagnosis: Left middle cerebral artery infarction Procedure: Right frontal brunilda hole, placement of ICP monitor Anesthesia: Local Surgeon: Godwin Tello Business Process Associate(s): Elisha Operation and Findings: INDICATIONS FOR THE PROCEDURE Ms Lake is a 72 yearb old adult female who was brought to [facility] with altered mental status. CT of the brain showed a large left acute middle cerebral artery ischemic infarction causing mass effect and midline shift. Placement of ICP monitor was indicated as recommended by the [employer] DETAILS OF THE SURGICAL PROCEDURE The right frontal area was shaved, prepped and draped in the usual sterile fashion. An entry point was selected behind the hairline, approximately 30 mm lateral to the midline. The incision was infiltrated with 1% lidocaine with epinephrine 1:100,000 dilution. A small incision was made with a 15 blade down to the level of the periosteum. Using a twist drill a brunilda hole was made. The dura was opened with a blunt stylet, and a [place] bolt was secured to the bone. A fiberoptic transducer was calibrated according to the lip of shank cutter's instructions, and advanced into the parenchyma of the frontal lobe through the bolt. An intracranial pressure of 15 mmHg was achieved with a good waveform. A Betadine sterile dressing was applied. The patient tolerated the procedure well. There were no intraoperative complications. Blood loss was minimal. Godwin Tello MD Oct 21, 2017 16:31
[2017-10-21] MEDS ORDERED: NOREPINEPHRINE-DEXTROSE DRIP 250 ML IV ONE (16:48)
[2017-10-21] MEDS ORDERED: NOREPINEPHRINE INJ 4 MG in SODIUM CHLOR 0.9% 250 ML INJ 246 ML IV PRN (17:00)
--- NOTE | 2017-10-21 17:02 | RADRPT ---
EXAM DATE/TIME: 10/21/2017 16:41 [facility] COMPARISON: CHEST SINGLE AP, October 21, 2017, 13:43. INDICATIONS : Central line placement. MEDICAL HISTORY : Cerebrovascular disease. Stroke Diabetes mellitus type 2.Hypertension. SURGICAL HISTORY : None. ENCOUNTER: Initial ACUITY: 1 day PAIN SCORE: 0/10 LOCATION: Bilateral chest FINDINGS: A single view of the chest demonstrates the lungs to be symmetrically aerated without evidence of mas s, infiltrate or effusion. There appears to be stable linear scarring extending vertically off the le ft hemidiaphragm. Stable linear calcification in the ascending thoracic aorta. Nasogastric and endotr acheal tubes are unchanged in position. Interval placement of a right subclavian central venous bear ter with the tip projecting over the central venous system. Heart size is normal. Levoscoliosis of th e thoracolumbar spine with associated degenerative spurring.. Osseous structures are otherwise intac t. CONCLUSION: 1. Interval placement of a right subclavian central venous catheter with the tip projecting over the central venous system. No pneumothorax. Life support tubes are otherwise stable. 2. Otherwise, stable linear calcification in what I believe is the ascending thoracic aorta. Stable p leural-parenchymal scarring of the left hemidiaphragm. Jerome Clark MD on October 21, 2017 at 16:54 Board Certified Radiologist. This report was verified electronically.
--- NOTE | 2017-10-21 17:29 | PD.PROCEDR ---
Central Line Procedure REASON FOR PROCEDURE Central venous access PROCEDURE PERFORMED Central line placement: Right subclavian vein CONSENT Informed consent for procedure was not obtained as this was an emergent procedure ANESTHESIA Local injection of 1% Lidocaine DESCRIPTION OF THE PROCEDURE The patient was placed in supine, mild Trendelenburg position. The area was exposed and cleansed with ChloraPrep, times two. Large sterile drape was used to cover the patient, with the site exposed, under sterile conditions including cap, face mask, sterile gown, and sterile gloves. On single attempt, the introducer needle was inserted with negative pressure in syringe and venous flash was obtained. The guide wire was then advanced without any restriction and the needle was removed. The dilator was used without any complications. Using Seldinger technique a 20 cm antimicrobial coated triple lumen catheter was advanced over the guide wire to a depth of 17 centimeters. The guide wire was removed. All ports were aspirated with dark venous blood return and flushed easily with sterile saline. All ports were capped. Antibiotic disc was placed around central line at puncture site. The central line was secured to the skin with a stat lock The area was bandaged with sterile see-through central line bandage. Postprocedure chest x-ray reviewed with no pneumothorax noted with appropriate position of right subcutaneous in central line with tip overlying SVC. COMPLICATIONS: No apparent complications ESTIMATED BLOOD LOSS: Less than 3 cc. Celio Thompson MD Oct 21, 2017 17:29
[2017-10-21] MEDS: CHLORHEXIDINE 0.12% (ORAL KIT) 15 ML CUP MT SCH (20:01)
[2017-10-21 20:21] LABS: BICARBONATE 26.7 MEQ/L (21.0-32.0); CALCIUM 8.7 MG/DL (8.5-10.1); CREATININE 1.06 MG/DL (0.50-1.00)
[2017-10-21] MEDS: MANNITOL 12.5 GM/50 ML VIAL IV SCH (20:39)
[2017-10-21] MEDS: FAMOTIDINE 20 MG/2 ML VIAL IV PUSH SCH (20:48)
[2017-10-21] MEDS: ATORVASTATIN 40 MG TAB PO SCH (20:49)
[2017-10-22] VITALS (18 sets, daily range): BP systolic 98–146; BP diastolic 47–60; PULSE 6–112; RESP 14–18; TEMP 98.9–101.2; O2SAT 95–100
[2017-10-22] MEDS: CHLORHEXIDINE GLUCONATE 2 % 1 PACK (2 CLOTHS)(taper/protocol) TOPICAL SCH (03:29)
[2017-10-22] MEDS: PROPOFOL 1000 MG/100 ML INJ 100 ML IV PRN (04:34)
[2017-10-22] MEDS: fentaNYL DRIP 250 ML IV PRN (04:36)
[2017-10-22] MEDS: MANNITOL 12.5 GM/50 ML VIAL IV SCH ×3 (05:01→12:00)
[2017-10-22 06:07] LABS: AUTOMATED NEUTROPHIL # 10.4 TH/MM3 (1.8-7.7); BASOPHIL % 0.3 % (0.0-2.0); EOSINOPHIL % 0.1 % (0.0-4.0); HEMATOCRIT 34.7 % (35.0-46.0); HEMOGLOBIN 11.7 GM/DL (11.6-15.3); LYMPH % 18.2 % (9.0-44.0); LYMPHOCYTE # 2.6 TH/MM3 (1.0-4.8); MEAN CELL VOLUME 93.8 FL (80.0-100.0); MEAN CORPUSCULAR HEMOGLOBIN 31.5 PG (27.0-34.0); MEAN CORPUSCULAR HGB CONC 33.6 % (32.0-36.0); MONO % 8.1 % (0.0-8.0); MONOCYTE # 1.2 TH/MM3 (0-0.9); NEUT % 73.3 % (16.0-70.0); PLATELET COUNT 267 TH/MM3 (150-450); RED CELL DISTRIBUTION WIDTH 13.5 % (11.6-17.2); WHITE BLOOD COUNT 14.2 TH/MM3 (4.0-11.0)
--- NOTE | 2017-10-22 06:29 | RADRPT ---
EXAM DATE/TIME: 10/22/2017 06:00 [facility] COMPARISON: CHEST SINGLE AP, October 21, 2017, 16:41. INDICATIONS : Respiratory failure. MEDICAL HISTORY : Cerebrovascular disease. Stroke Diabetes mellitus type 2.Hypertension. SURGICAL HISTORY : None. ENCOUNTER: Subsequent ACUITY: 4 - 6 days PAIN SCORE: Non-responsive. LOCATION: Bilateral chest FINDINGS: There is cardiomegaly. Degenerative changes of the spine. Enteric tube is noted in the side port is j ust beyond the esophagogastric junction. There is a large right-sided pneumothorax present from the l bruce apex to the left lung base. Endotracheal tube tip at the inferior margin of the clavicles. CONCLUSION: Large right-sided pneumothorax is present with pleural separation up to 4.1 cm near the apex. Corona Lunsford MD on October 22, 2017 at 6:26 Board Certified Radiologist. This report was verified electronically.
[2017-10-22 06:58] LABS: CALCIUM 8.1 MG/DL (8.5-10.1); CREATININE 1.22 MG/DL (0.50-1.00); MAGNESIUM 2.2 MG/DL (1.5-2.5)
--- NOTE | 2017-10-22 07:43 | HHI.PR ---
Subjective Remarks Patients neurological status declined yesterday and now has a right ptx. bolt for icp in place. sedated Objective Vital Signs Date Time Temp Pulse Resp B/P (MAP) Pulse Ox O2 Delivery O2 Flow Rate FiO2 10/22/17 04:24 98 35 10/22/17 04:00 50 10/22/17 04:00 101.2 77 18 112/56 (74) 98 116/47 (70) 10/22/17 00:35 100 40 10/22/17 00:00 99.2 69 14 133/60 (84) 100 146/48 (80) 10/22/17 00:00 50 10/21/17 20:25 100 50 10/21/17 20:00 61 10/21/17 20:00 50 10/21/17 20:00 99.1 61 14 132/53 (79) 100 10/21/17 18:00 64 10/21/17 16:48 68 71/60 10/21/17 16:15 100 50 10/21/17 16:00 99.6 82 17 163/61 (95) 100 10/21/17 16:00 50 10/21/17 16:00 82 10/21/17 15:00 83 10/21/17 15:00 83 17 152/85 (107) 100 10/21/17 14:44 100 52 10/21/17 14:06 84 18 149/59 (89) 100 10/21/17 14:00 84 18 149/59 (89) 100 10/21/17 14:00 94 10/21/17 13:57 96 23 173/79 (110) 100 10/21/17 13:54 94 21 168/101 (123) 100 10/21/17 13:30 50 10/21/17 13:15 100 50 10/21/17 13:00 56 10/21/17 13:00 98 25 159/78 (105) 100 10/21/17 12:45 56 10/21/17 12:15 54 10/21/17 12:00 98.8 36 37 102/48 (66) 95 10/21/17 12:00 36 10/21/17 11:00 90 28 133/57 (82) 98 10/21/17 11:00 90 10/21/17 10:00 96 2/14/18 10:00 96 25 144/58 (86) 95 10/21/17 09:00 102 10/21/17 09:00 102 27 157/62 (93) 98 10/21/17 08:20 97 Nasal Cannula 2.50 10/21/17 08:14 100 156/61 10/21/17 08:11 100 156/61 10/21/17 08:00 100 10/21/17 08:00 98.5 100 23 156/61 (92) 99 I/O 10/21/17 10/21/17 10/21/17 10/22/17 10/22/17 10/22/17 07:00 15:00 23:00 07:00 15:00 23:00 Intake Total 620 ml 340 ml 50 ml 895 ml Output Total 900 ml 750 ml 1250 ml 400 ml Balance -280 ml -410 ml -1200 ml 495 ml IV Total 200 ml 340 ml 50 ml 350 ml Tube Feeding 420 ml 345 ml Other 200 ml Output Urine Total 900 ml 750 ml 1250 ml 400 ml # Bowel Movements 0 0 0 Result Diagram: 10/22/1744410/22/17444 Imaging lge left mca infarct with hemor.conversion mass effect on ct cxr right ptx Objective Remarks intubated sedated bolt icp controlled per staff ventilated pupils pp sedated exam no w/d to stimuli Assessment and Plan Assessment and Plan large left mci infarct -cont monitor icp -mannitol/2% saline -off aspirin -bp per parameters. -per [employer] custom hair piece consultant for ptx-procedure being done now. -will obtain eeg. -nsx on board defer repeat imaging to them. -condition grave with poor prognosis in such a large infarct in a dominant hemisphere. Cecelia Darling MD Oct 22, 2017 07:43
--- NOTE | 2017-10-22 08:45 | RADRPT ---
EXAM DATE/TIME: 10/22/2017 08:12 [facility] COMPARISON: CHEST SINGLE AP, October 22, 2017, 6:00. INDICATIONS : Evaluate chest tube placement MEDICAL HISTORY : Cerebrovascular disease. Stroke Diabetes mellitus type 2.Hypertension SURGICAL HISTORY : None. ENCOUNTER: Subsequent ACUITY: 4 - 6 days PAIN SCORE: Non-responsive. LOCATION: Right chest FINDINGS: Stable ETT, right subclavian central line, and NGT. Interval placement of right apical chest tube wit h interval resolution of right-sided pneumothorax. Linear airspace disease in the left lung base. Car diomediastinal contours are stable. Remainder of exam is unchanged. CONCLUSION: 1. Stable tubes and lines. 2. Interval placement of right apical chest tube with resolution of right-sided pneumothorax. 3. Left lung base atelectasis. Jerry Rider MD on October 22, 2017 at 8:42 Board Certified Radiologist. This report was verified electronically.
[2017-10-22] MEDS: CHLORHEXIDINE 0.12% (ORAL KIT) 15 ML CUP MT SCH ×2 (09:14→20:00)
[2017-10-22] MEDS: INSULIN NovoLIN REGULAR SUPPLEMENTAL SCALE SQ SCH ×4 (09:15→20:22)
[2017-10-22] MEDS: SODIUM CHLORIDE 0.9% FLUSH 10 ML FLUSH IV FLUSH SCH ×2 (09:15→21:00)
[2017-10-22] MEDS: FAMOTIDINE 20 MG/2 ML VIAL IV PUSH SCH ×2 (09:15→20:21)
[2017-10-22] MEDS: SODIUM CHLORIDE 23.4% INJ 188 MEQ in SODIUM CHLOR 0.9% 1000 ML INJ 1,000 ML IV SCH (09:16)
[2017-10-22] MEDS: DOCUSATE SODIUM 100 MG CAP PO SCH ×2 (09:16→20:21)
[2017-10-22] MEDS: INSULIN DETEMIR 100 UNITS/ML VIAL SQ SCH ×2 (09:16→20:22)
[2017-10-22] MEDS ORDERED: RESP: ALBUTEROL 2.5 MG/IPRATROPIUM 0.5 MG NEB (PRN) NEB (12:00)
--- NOTE | 2017-10-22 14:07 | HHI.CCPN ---
Subjective Remarks/Hospital Course 10/21: 72-year-old female who recently presented to hospital on October 17, 2017 because sometime in the morning, her found her on the couch almost motionless, slouching in a reclining position. He attempted to stimulator but she only mild response. It was indicated that time that she was moving both her legs but did not notice any movement in her arms. The patient was unable to communicate and no coherent speech, was unable to follow commands. The last time that she is notably normal was the night prior to her going to bed. She had been treating herself for a head cold for approximately a week prior. She was seen in urgent care the day before coming to the hospital and prescribed some kind of antibiotic. As indicated that her blood glucoses were 400 at the urgent care center. Ambulance was called and the patient was brought to the emergency department for evaluation. Patient was not a candidate for TPA at that time due to unknown time frame of onset of symptoms. Patient had workup done in found to have significant hypertension, CT scan did show increased density involving the left MCA as compared to right which is concerning for acute thrombosis. Patient was admitted to the hospital for further evaluation and management. Patient had MRI, MRA performed which did show very large evolving left MCA CVA. Patient clinical condition did not improve, patient was still unable to communicate, unable to open eyes, pupils remained round and reactive to light. Patient was doing well and today on examination she actually hollowed commanded by gripping my hand with her left hand. Patient had been on Cardene and blood pressure medication has been adjusted to maintain systolic blood pressure 140-160. Nursing staff notified me that the patient had acute onset of bradycardia with heart rate in the 30s. At that time I notified Dr. Barton and stat CT was performed. CT did indicate significant worsening of the stroke with hemorrhagic conversion, midline shift. Patient was emergently intubated for airway support. Started hyperventilation to maintain End tidal CO2 30-36, 25 g mannitol IV given, head of bed raised at 45. Patient started on 2% saline solution with monitoring sodium every 6 hours. Stat consultation to neurosurgery was performed. I personally discussed the case with Amy, the PA that works with Dr. Tello. I discussed his case will hooking machine operator for Dr. Barton, Dr. Thompson. Stat transfer to the [facility] hospital was requested. 10/22: Remains sedated, orally intubated on mechanical ventilation. Noted to have right pneumothorax on a.m. chest x-ray today for with right pigtail catheter placed by myself following which there was transient airleak was stopped within a minute of chest tube placement. On 2% saline which was held this morning and remains on mannitol. Objective Vital Signs Date Time Temp Pulse Resp B/P (MAP) Pulse Ox O2 Delivery O2 Flow Rate FiO2 10/22/17 12:00 99 10/22/17 12:00 50 10/22/17 11:25 100 10/22/17 08:00 99.2 18 112/58 (76) Automatic Cuff 10/21/17 08:20 Nasal Cannula 2.50 Intake and Output 10/22/17 10/22/17 10/22/17 07:59 15:59 23:59 Intake Total 895 ml 1047 ml Output Total 400 ml Balance 495 ml 1047 ml Result Diagram: 10/22/17 0445 10/22/17 0830 Other Results Microbiology Date/Time Source Procedure Growth Status 10/21/17 18:00 Nasal Washing Influenza Types A,B Antigen (MARINA) - Final NEGATIVE FOR FLU A AND B ANTIGEN.... Complete Laboratory Tests Test 10/21/17 14:35 10/21/17 18:38 10/22/17 09:00 Blood Gas Puncture Site RT RADIAL ART LINE ART LINE Blood Gas Patient Temperature 37.0 98.6 98.6 Blood Gas HCO3 25 mmol/L (22-26) 23 mmol/L (22-26) 22 mmol/L (22-26) Blood Gas Base Excess 1.7 mmol/L (-2-2) -0.2 mmol/L (-2-2) -2.3 mmol/L (-2-2) Blood Gas Oxygen Saturation 97 % (90-100) 98 % (90-100) 95 % (90-100) Arterial Blood pH 7.51 (7.380-7.420) 7.45 (7.380-7.420) 7.40 (7.380-7.420) Arterial Blood Partial Pressure CO2 31 mmHg (38-42) 34 mmHg (38-42) 36 mmHg (38-42) Arterial Blood Partial Pressure O2 181 mmHg (61-120) 224 mmHg (61-120) 88 mmHg (61-120) Arterial Blood Oxygen Content 18.2 Vol % (12.0-20.0) 16.2 Vol % (12.0-20.0) 15.6 Vol % (12.0-20.0) Arterial Blood Carboxyhemoglobin 1.3 % (0-4) 1.1 % (0-4) 1.2 % (0-4) Arterial Blood Methemoglobin 1.0 % (0-2) 0.6 % (0-2) 0.8 % (0-2) Blood Gas Hemoglobin 13.0 G/DL (12.0-16.0) 11.4 G/DL (12.0-16.0) 11.6 G/DL (12.0-16.0) Oxygen Delivery Device VENTILATOR VENTILATOR VENTILATOR Blood Gas Ventilator Setting PRVC/AC SEE COMMENT Blood Gas Inspired Oxygen 50 % 50 % 35 % Imaging Last Impressions Chest X-Ray 10/21/17 1339 Signed Impressions: Service Date/Time: Saturday, October 21, 2017 13:43 - CONCLUSION: Lines and tubes as detailed above. Clear lungs. Lei Cast Jr., MD Head CT 10/21/17 0000 Signed Impressions: Service Date/Time: Saturday, October 21, 2017 12:37 - CONCLUSION: 1. 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 Lei Cast Jr., MD Abdomen X-Ray 10/18/17 0000 Signed Impressions: Service Date/Time: Wednesday, October 18, 2017 17:20 - CONCLUSION: Gastric tube tip and side-port project within the stomach. Lei Kerr MD Neck Magnetic Resonance Angiography 10/17/17 0934 Signed Impressions: Service Date/Time: Tuesday, October 17, 2017 11:17 - CONCLUSION: Mild posterior soft plaque in left carotid bulb non-stenotic. Slit like, pinch stenosis at the origin of the right internal carotid artery. Poor visualization origin of the dominant left vertebral artery . Bilateral internal carotids in the siphon are somewhat irregular and poorly visualized however intracranially there is absence of flow in the left middle cerebral artery. Raj Reinoso MD Head Magnetic Resonance Angiography 10/17/17 0934 Signed Impressions: Service Date/Time: Tuesday, October 17, 2017 11:17 - CONCLUSION: Complete occlusion of the left MCA corresponding with the hyperdense left MCA seen on comparison CT. Mary Jane Caballero MD Brain MRI 10/17/17 0934 Signed Impressions: Service Date/Time: Tuesday, October 17, 2017 11:17 - CONCLUSION: Acute left MCA stroke Raj eRinoso MD Objective Remarks GENERAL: Well-developed, well-nourished, patient has decreased mental status, patient does squeeze her hand on the left side when asked HEENT: Head is normocephalic without any lesions or masses noted. Eyes: Conjunctivae were clear. NECK: Supple without any masses. Trachea midline no deviation. No JVD, CARDIAC: Regular rhythm, regular rate. S1/S2 are heard. No murmurs gallops or rubs. LUNGS: Clear to auscultation bilaterally. No wheeze, rhonchi or rales. No use of accessory muscles on inspiration or expiration. ABDOMEN: Soft, nontender. Nondistended. Bowel sounds heard in all 4 quadrants. No organomegaly or masses. Negative rebound, negative guarding EXTREMITIES: No edema, pulses are equal bilaterally. No cyanosis or clubbing NEUROLOGY: Sedated, orally intubated on mechanical ventilation. Pupils 3 mm bilaterally reacting actively to light. Withdraws left upper extremity with painful stimuli, dense right hemiplegia A/P Problem List: (1) Acute CVA (cerebrovascular accident) ICD Code: I63.9 - Cerebral infarction, unspecified Status: Acute (2) Major neurological deficit ICD Code: R29.818 - Other symptoms and signs involving the nervous system (3) Aphasia due to acute stroke ICD Code: I63.9 - Cerebral infarction, unspecified; R47.01 - Aphasia (4) Right hemiplegia ICD Code: G81.91 - Hemiplegia, unspecified affecting right dominant side (5) Encephalopathy ICD Code: G93.40 - Encephalopathy, unspecified (6) Leukocytosis ICD Code: D72.829 - Elevated white blood cell count, unspecified (7) Hypertension ICD Code: I10 - Essential (primary) hypertension (8) Hyperlipidemia ICD Code: E78.5 - Hyperlipidemia, unspecified (9) Diabetes ICD Code: E11.9 - Type 2 diabetes mellitus without complications Assessment and Plan NEUROLOGY Acute left MCA territory ischemic CVA secondary to occluded left MCA with significant cerebral edema and mass effect with minimal hemorrhagic conversion [id number] midline shift 4 mm Right hemiplegia Aphasia Encephalopathy Continue neurochecks per ICU protocol CT scan 10/21 shows hemorrhagic conversion of left MCA territory infarction now with 4 mm of [id number] midline shift Keep head of bed 45 2% saline to keep sodium 150 - 155 25 g mannitol IV Q6hrly to be stopped later today Monitor sodium/ osmolality every 6 hours Neurosurgical consultation has been requested and patient evaluated by Dr. Tello. [place] placed for ICP monitoring. ICP 5 Propofol/fentanyl for sedation to keep RASS -2 Neurology following the patient PT/OT is following the patient PULMONOLOGY Acute respiratory failure on mechanical ventilation COPD Right pneumothorax status post pigtail catheter placement 10/22 Continue mechanical ventilation Ventilator bundle PRVC 18/500/1.0/5+/50% Monitor end-tidal CO2 and adjust respirations the to keep end-tidal CO2 around 35 No weaning trials still decrease of cerebral edema and midline shift Right pigtail catheter placed for pneumothorax with resolution on 10/22 CARDIOLOGY Hypertension, controlled Hyperlipidemia Acute bradycardia Monitor blood pressure and keep map greater than 65 Dopamine as needed to keep heart rate greater than 50 Levophed for pressor support to keep MAP greater than 65. Echocardiogram does indicate ejection fraction 60-65% with hyperdynamic systolic Cardene drip to keep systolic blood pressure less than 180 Hold Atenolol 25 mg twice daily/losartan 100 mg daily/verapamil 120 mg twice daily in view of hypotension LDL 73, patient started on Lipitor 40 mg daily GASTROENTEROLOGY Dysphagia NG tube is in place at this time Tube feeding at goal of Jevity 1.5 with goal of 45 mL/hour, dietary following GI protection with Pepcid RENAL Monitor renal function ICU electrolyte replacement protocol 2% saline held as sodium greater than 155, will resume for sodium less than 150 INFECTIOUS DISEASE Leukocytosis No acute signs of infection at this time Continue monitor for infection Obtain blood cultures, sputum culture, influenza testing ENDOCRINOLOGY Diabetes Accu-Cheks with sliding scale insulin Levemir 10 units every 12 hours Hemoglobin A1c 7.8 TSH 3.11 HEMATOLOGY Hemoglobin has remained stable, coagulation factors are normal, platelet count is normal Continue monitor and address as needed PROPHYLAXIS GI protection with Pepcid DVT prevention with Lovenox and sequential compression devices LINES Right subclavian central line placed on 10/21 CODE STATUS Alternate CODE STATUS with intubation only. Being followed by palliative care team. Discussed with patient's on 10/21 and he tells me that patient would not want tracheostomy or PEG tube placement or neurosurgical intervention. Critical care time excluding procedures 40 minutes Celio Thompson MD Oct 22, 2017 14:06
--- NOTE | 2017-10-22 14:09 | PD.PROCEDR ---
Procedure Note Procedure Procedure: Pigtail catheter placement site: Right pleural cavity Preop diagnosis: Right pneumothorax Postop diagnosis: Same Informed consent: Obtained from family and documented on chart. Anesthesia used: 1% lidocaine for local infiltration anesthesia Procedure: After sterile prepping and draping using 1% lidocaine for local infiltration anesthesia, introducer needle was used to enter Right pleural cavity between 3rd and 4th intercostal space just anterior to anterior axillary line. Pleural cavity was entered as evidenced by return of air bubbles. A guidewire was passed through needle without any resistance following which Angiocath was removed. 8 [place] pigtail catheter was advanced over the guidewire into the right pleural cavity following which guidewire and stiffener were removed. Pigtail catheter was connected to Pleur-evac VAC with a connector. Pigtail catheter was sutured in place as well as secured with stayfix. Postprocedure chest x-ray was ordered and was pending at the time of this dictation. It will be reviewed when available. Patient tolerated procedure well with no immediate complications noted. Celio Thompson MD Oct 22, 2017 14:09
[2017-10-22] MEDS: RESP: ALBUTEROL 2.5 MG/IPRATROPIUM 0.5 MG NEB (SCH) NEB ×2 (15:22→20:53)
--- NOTE | 2017-10-22 16:42 | HHI.NSPN ---
(Bernice Johnson) Note Status Status: Progress Note (Bernice Johnson) Interval History Interval History 72-year-old white female admitted with acute altered mental status. She did not verbalize any coherent speech nor follow any commands. She was admitted to [facility]. Apparently not much was done there. She deteriorated todat requiring emergency endotracheal intubation. I was called urgently by Dr Barton, However the patient is still not here. 10/22: ICPs below 15, intubated, mildly sedated on propofol. (Bernice Johnson) Labs, Micro, & Vital Signs Results Date Time Temp Pulse Resp B/P (MAP) Pulse Ox O2 Delivery O2 Flow Rate FiO2 10/22/17 15:23 100 35 10/22/17 14:00 90 10/22/17 13:40 95 35 10/22/17 12:00 99 10/22/17 12:00 98.9 82 18 126/52 (76) 99 10/22/17 12:00 50 10/22/17 11:25 100 35 10/22/17 10:00 90 10/22/17 09:00 100 35 10/22/17 08:25 100 35 10/22/17 08:00 91 10/22/17 08:00 50 10/22/17 08:00 99.2 74 18 112/58 (76) 99 Automatic Cuff 10/22/17 04:24 98 35 10/22/17 04:00 50 10/22/17 04:00 101.2 77 18 112/56 (74) 98 116/47 (70) 10/22/17 00:35 100 40 10/22/17 00:00 99.2 69 14 133/60 (84) 100 146/48 (80) 10/22/17 00:00 50 10/21/17 20:25 100 50 10/21/17 20:00 61 10/21/17 20:00 50 10/21/17 20:00 99.1 61 14 132/53 (79) 100 10/21/17 18:00 64 10/21/17 16:48 68 71/60 2/16/18 07:00 Intake Total 1047 ml Balance 1047 ml Constitutional Vital Signs Date Time Temp Pulse Resp B/P (MAP) Pulse Ox O2 Delivery O2 Flow Rate FiO2 10/22/17 15:23 100 35 10/22/17 14:00 90 10/22/17 13:40 95 35 10/22/17 12:00 99 10/22/17 12:00 98.9 82 18 126/52 (76) 99 10/22/17 12:00 50 10/22/17 11:25 100 35 10/22/17 10:00 90 10/22/17 09:00 100 35 10/22/17 08:25 100 35 10/22/17 08:00 91 10/22/17 08:00 50 10/22/17 08:00 99.2 74 18 112/58 (76) 99 Automatic Cuff 10/22/17 04:24 98 35 10/22/17 04:00 50 10/22/17 04:00 101.2 77 18 112/56 (74) 98 116/47 (70) 10/22/17 00:35 100 40 10/22/17 00:00 99.2 69 14 133/60 (84) 100 146/48 (80) 10/22/17 00:00 50 10/21/17 20:25 100 50 10/21/17 20:00 61 10/21/17 20:00 50 10/21/17 20:00 99.1 61 14 132/53 (79) 100 10/21/17 18:00 64 10/21/17 16:48 68 71/60 10/23/17 07:00 Intake Total 1047 ml Balance 1047 ml (Bernice Johnson) Review of Systems ROS Limitations: Intubated (Bernice Johnson) Physical Exam Ms. Lake is intubated and sedated. Cranial Nerves: Pupils 2-3 mm equal, round, reactive to light. Eyes appear conjugated. Cervical Spine: soft, supple Motor: not following commands for testing Reflexes: trace throughout. Plantars silent bilaterally. Sensory: sedated, minimal to no response Cerebellar: cannot be assessed due to current clinical condition Lungs: clear Heart: regular rate Skin: warm and dry (Bernice Johnson) Ms. Lake is intubated and sedated. Cranial Nerves: Pupils 2-3 mm equal, round, reactive to light. Eyes appear conjugated. Cervical Spine: soft, supple Motor: not following commands for testing Reflexes: trace throughout. Plantars silent bilaterally. Sensory: sedated, minimal to no response Cerebellar: cannot be assessed due to current clinical condition Lungs: clear Heart: regular rate Skin: warm and dry (Godwin Tello MD) Medications Current Medications Current Medications Medications (Trade) Dose Ordered Sig/Jeyson Route PRN Reason Start Time Stop Time Status Last Admin Dose Admin Sodium Chloride (NS Flush) 2 ml BID IV FLUSH 10/17/17 21:00 10/22/17 09:15 Sodium Chloride (NS Flush) 2 ml UNSCH PRN IV FLUSH FLUSH AFTER USING IV ACCESS 10/17/17 09:45 Atorvastatin Calcium (Lipitor) 40 mg HS PO 10/18/17 21:00 10/21/17 20:49 Miscellaneous Information Patient in critical care unit? Ass... Q361D .XX 10/17/17 11:00 10/17/17 11:00 Ondansetron HCl (Zofran Inj) 4 mg Q6HR PRN IV PUSH NAUSEA OR VOMITING 10/18/17 00:45 10/18/17 00:48 Prochlorperazine Edisylate (Compazine Inj) 5 mg Q4H PRN IV PUSH N/V not relieved with Zofran 10/18/17 00:45 Verapamil HCl (Isoptin) 120 mg BID PO 10/19/17 21:00 Future Hold 10/21/17 10:30 Enoxaparin Sodium (Lovenox Inj) 30 mg Q24H SQ 10/19/17 15:00 Future Hold 10/20/17 15:39 Docusate Sodium (Colace) 100 mg BID PO 10/19/17 15:00 10/22/17 09:16 Losartan Potassium (Cozaar) 100 mg DAILY PO 10/19/17 15:00 Future Hold 10/21/17 10:30 Insulin Human Regular (NovoLIN R SUPPLEMENTAL SCALE) 1 ACHS SLIDING SCALE SQ 10/19/17 17:00 10/22/17 12:54 Aspirin (Aspirin Supp) 300 mg DAILY RECTAL 10/21/17 09:00 Future Hold Dopamine HCl/ Dextrose 500 ml @ 7.121 mls/ hr TITRATE PRN IV Blood Pressure Management/ HR 10/21/17 12:15 Terbutaline Sulfate (Brethine Inj) 1 mg UNSCH PRN SQ For Extravasation 10/21/17 12:15 Famotidine (Pepcid Inj) 20 mg Q12HR IV PUSH 10/21/17 21:00 10/22/17 09:15 Midazolam HCl (Versed Inj) 2 mg Q1H PRN IV PUSH SEDATION 10/21/17 13:30 Chlorhexidine Gluconate (Peridex 0.12% Liq) 15 ml BID@08,20 MT 10/21/17 20:00 10/22/17 09:14 Propofol 100 ml @ 1.899 mls/ hr TITRATE PRN IV SEDATION 10/21/17 13:30 10/22/17 04:34 Potassium Chloride 100 ml @ 50 mls/hr Q2H PRN IV For Potassium 2.8 - 3.2 mEq/L 10/21/17 13:30 Potassium Chloride 100 ml @ 50 mls/hr Q2H PRN IV For Potassium 2.8 - 3.2 mEq/L 10/21/17 13:30 Potassium Bicarb/ Potassium Chloride (K-Lyte Cl Eff) 50 meq UNSCH PRN PO For Potassium 3.3 - 3.5 mEq/L 10/21/17 13:30 Potassium Chloride 100 ml @ 25 mls/hr UNSCH PRN IV For Potassium 3.3 - 3.5 mEq/L 10/21/17 13:30 Potassium Chloride 100 ml @ 50 mls/hr Q2H PRN IV For Potassium 3.3 - 3.5 mEq/L 10/21/17 13:30 Magnesium Sulfate 4 gm/Sodium Chloride 100 ml @ 50 mls/hr UNSCH PRN IV For Magnesium 0.9 - 1.1 mg/dL 10/21/17 13:30 Magnesium Oxide (Mag-Ox) 800 mg UNSCH PRN PO For Magnesium 1.2 - 1.6 mg/dL 10/21/17 13:30 Magnesium Sulfate 2 gm/Sodium Chloride 100 ml @ 50 mls/hr UNSCH PRN IV For Magnesium 1.2 - 1.6 mg/dL 10/21/17 13:30 Potassium Phosphate (K-Phos) 2,000 mg Q4H PRN PO For Phosphorus < 2.5 mg/dL 10/21/17 13:30 Sodium Phosphate 30 mmol/Sodium Chloride 250 ml @ 42 mls/hr UNSCH PRN IV For Phosphorus < 2.5 mg/dL 10/21/17 13:30 Potassium Phosphate (K-Phos) 2,000 mg UNSCH PRN PO/TUBE SEE LABEL COMMENTS 10/21/17 13:30 Potassium Phosphate 30 mmol/ Sodium Chloride 260 ml @ 42 mls/hr UNSCH PRN IV SEE LABEL COMMENTS 10/21/17 13:30 Fentanyl Citrate 250 ml @ 5 mls/hr TITRATE PRN IV SEDATION 10/21/17 13:45 10/22/17 04:36 Sodium Chloride 188 meq/Sodium Chloride 1,047 ml @ 60 mls/hr [id number] IV 10/21/17 16:00 10/22/17 09:16 Norepinephrine Bitartrate 4 mg/ Sodium Chloride 250 ml @ 7.5 mls/hr TITRATE PRN IV Blood pressure management 10/21/17 17:00 Nicardipine HCl 25 mg/Sodium Chloride 260 ml @ 52 mls/hr TITRATE PRN IV Blood pressure management 10/21/17 17:00 Albuterol/ Ipratropium (Duoneb Neb) 1 ampule Q6HR NEB NEB 10/22/17 16:00 10/22/17 15:22 Albuterol/ Ipratropium (Duoneb Neb) 1 ampule Q2HR NEB PRN NEB wheezing 10/22/17 12:00 10/22/17 11:53 Insulin Detemir (Levemir Inj) 10 units Q12HR SQ 10/22/17 21:00 (Bernice Johnson) Current Medications Current Medications Nicardipine HCl 25 mg/Sodium Chloride 250 ml @ 50 mls/hr TITRATE PRN IV Blood pressure management Last administered on 10/17/17at 09:20; Start 10/17/17 at 08: 45; Stop 10/17/17 at 19:52; Status DC Aspirin (Aspirin Supp) 300 mg ONCE ONCE RECTAL Last administered on 10/17/17at 10:14; Start 10/17/17 at 09:30; Stop 10/17/17 at 09:31; Status DC Sodium Chloride (NS Flush) 2 ml BID IV FLUSH Last administered on 10/26/17at 08: 58; Start 10/17/17 at 21:00 Sodium Chloride (NS Flush) 2 ml UNSCH PRN IV FLUSH FLUSH AFTER USING IV ACCESS ; Start 10/17/17 at 09:45 Insulin Aspart (NovoLOG SUPPLEMENTAL SCALE) 1 ACHS SQ Last administered on 10/19at 13:24; Start 10/17/17 at 12:00; Stop 10/19/17 at 15:06; Status DC Dextrose (D50w (Vial) Inj) 50 ml UNSCH PRN IV PUSH HYPOGLYCEMIA-SEE COMMENTS; Start 10/17/17 at 09:45; Stop 10/19/17 at 15:06; Status DC Glucagon (Glucagon Inj) 1 mg UNSCH PRN OTHER HYPOGLYCEMIA-SEE COMMENTS; Start 10/17/17 at 09:45; Stop 10/19/17 at 15:06; Status DC Atorvastatin Calcium (Lipitor) 40 mg HS PO Last administered on 10/25/17at 22:02 ; Start 10/18/17 at 21:00 Atorvastatin Calcium (Lipitor) 40 mg ONCE ONCE PO ; Start 10/17/17 at 11:00; Stop 10/17/17 at 11:01; Status DC Sodium Chloride 1,000 ml @ 75 mls/hr [id number] IV Last administered on at 20:39; Start 10/17/17 at 10:30; Stop 10/20/17 at 13:40; Status DC Doxycycline Hyclate 100 mg/ Sodium Chloride 100 ml @ 100 mls/hr Q12H IV Last administered on 10/19/17at 13:23; Start 10/17/17 at 12:00; Stop 10/19/17 at 15:11 ; Status DC Miscellaneous Information Patient in critical care unit? Ass... Q361D .XX Last administered on 10/17/17at 11:00; Start 10/17/17 at 11:00 Chlorhexidine Gluconate (Chlorhexidine 2% Cloth) 3 pack DAILY@04 TOPICAL Last administered on 10/21/17at 04:00; Start 10/18/17 at 04:00; Stop 10/22/17 at 04:01 ; Status DC Chlorhexidine Gluconate (Chlorhexidine 2% Cloth) 3 pack UNSCH PRN TOPICAL HYGIENIC CARE; Start 10/17/17 at 11:00; Stop 10/22/17 at 10:57; Status DC Gadobenate Dimeglumine (Multihance Pf Inj) 15 ml STK-MED ONCE IV Last administered on 10/17/17at 12:02; Start 10/17/17 at 12:02; Stop 10/17/17 at 12:03 ; Status DC Nicardipine HCl 25 mg/Sodium Chloride 260 ml @ 52 mls/hr TITRATE PRN IV Blood pressure management Last administered on 10/21/17at 08:14; Start 10/17/17 at 20: 00; Stop 10/21/17 at 12:11; Status DC Ondansetron HCl (Zofran Inj) 4 mg Q6HR PRN IV PUSH NAUSEA OR VOMITING Last administered on 10/18/17at 00:48; Start 10/18/17 at 00:45 Prochlorperazine Edisylate (Compazine Inj) 5 mg Q4H PRN IV PUSH N/V not relieved with Zofran; Start 10/18/17 at 00:45 Labetalol HCl (Trandate Inj) 20 mg ONCE ONCE IV PUSH ; Start 10/19/17 at 15:00 ; Stop 10/19/17 at 15:07; Status DC Atenolol (Tenormin) 25 mg DAILY PO Last administered on 10/20/17at 08:10; Start 10/19/17 at 15:00; Stop 10/20/17 at 16:26; Status DC Verapamil HCl (Isoptin) 120 mg BID PO Last administered on 10/21/17at 10:30; Start 10/19/17 at 21:00; Status Future Hold Aspirin (Aspirin Supp) 300 mg ONCE ONCE RECTAL Last administered on 10/19/17at 15:00; Start 10/19/17 at 15:00; Stop 10/19/17 at 15:01; Status DC Enoxaparin Sodium (Lovenox Inj) 30 mg Q24H SQ Last administered on 10/20/17at 15 :39; Start 10/19/17 at 15:00; Status Future Hold Docusate Sodium (Colace) 100 mg BID PO Last administered on 10/26/17at 08:58; Start 10/19/17 at 15:00 Losartan Potassium (Cozaar) 100 mg DAILY PO Last administered on 10/21/17at 10: 30; Start 10/19/17 at 15:00; Status Future Hold Insulin Human Regular (NovoLIN R SUPPLEMENTAL SCALE) 1 ACHS SLIDING SCALE SQ Last administered on 10/26/17at 08:00; Start 10/19/17 at 17:00 Diltiazem HCl (Cardizem Inj) 10 mg ONCE ONCE IV Last administered on at 15:16; Start 10/19/17 at 15:15; Stop 10/19/17 at 15:16; Status DC Insulin Detemir (Levemir Inj) 10 units HS SQ Last administered on 10/20/17at 20: 51; Start 10/19/17 at 21:00; Stop 10/21/17 at 07:44; Status DC Potassium Bicarb/ Potassium Chloride (K-Lyte Cl Eff) 50 meq Q1H NG Last administered on 10/20/17at 08:11; Start 10/20/17 at 08:00; Stop 10/20/17 at 09:01 ; Status DC Potassium Chloride 100 ml @ 50 mls/hr ONCE ONCE IV Last administered on at 07:56; Start 10/20/17 at 08:00; Stop 10/20/17 at 09:59; Status DC Atenolol (Tenormin) 25 mg BID PO Last administered on 10/21/17at 10:30; Start at 21:00; Stop 10/21/17 at 17:01; Status DC Aspirin (Aspirin Supp) 300 mg DAILY RECTAL ; Start 10/21/17 at 09:00; Status Future Hold Potassium Bicarb/ Potassium Chloride (K-Lyte Cl Eff) 25 meq ONCE ONCE PO Last administered on 10/20/17at 23:21; Start 10/20/17 at 23:00; Stop 10/20/17 at 23:01; Status DC Potassium Bicarb/ Potassium Chloride (K-Lyte Cl Eff) 50 meq ONCE ONCE PO Last administered on 10/21/17at 10:31; Start 10/21/17 at 07:45; Stop 10/21/17 at 07:52; Status DC Potassium Chloride 100 ml @ 50 mls/hr BOLUS ONCE IV Last administered on 10/21at 10:18; Start 10/21/17 at 07:45; Stop 10/21/17 at 09:44; Status DC Insulin Detemir (Levemir Inj) 10 units BID SQ Last administered on 10/22/17at 09 :16; Start 10/21/17 at 09:00; Stop 10/22/17 at 14:13; Status DC Hydralazine HCl (Apresoline) 10 mg Q6HR NG Last administered on 10/21/17at 08:15 ; Start 10/21/17 at 08:15; Stop 10/21/17 at 12:11; Status DC Potassium Chloride 100 ml @ 50 mls/hr BOLUS ONCE IV Last administered on 10/21at 17:07; Start 10/21/17 at 11:15; Stop 10/21/17 at 13:14; Status DC Nicardipine HCl 25 mg/Sodium Chloride 260 ml @ 52 mls/hr TITRATE PRN IV Blood pressure management; Start 10/21/17 at 12:15; Stop 10/21/17 at 17:01; Status DC Dopamine HCl/ Dextrose 500 ml @ 7.121 mls/ hr TITRATE PRN IV Blood Pressure Management/ HR ; Start 10/21/17 at 12:15 Terbutaline Sulfate (Brethine Inj) 1 mg UNSCH PRN SQ For Extravasation; Start 10/21/17 at 12:15 Succinylcholine Chloride (Quelicin Inj) 200 mg STK-MED ONCE .ROUTE ; Start 10/21 at 13:13; Stop 10/21/17 at 13:14; Status DC Etomidate (Amidate Inj) 20 mg STK-MED ONCE .ROUTE ; Start 10/21/17 at 13:13; Stop 10/21/17 at 13:14; Status DC Propofol 50 ml @ As Directed STK-MED ONCE .ROUTE Last administered on at 14:24; Start 10/21/17 at 13:21; Stop 10/21/17 at 13:22; Status DC Famotidine (Pepcid Inj) 20 mg Q12HR IV PUSH Last administered on 10/26/17at 08: 58; Start 10/21/17 at 21:00 Midazolam HCl (Versed Inj) 2 mg Q1H PRN IV PUSH SEDATION; Start 10/21/17 at 13: 30 Lorazepam (Ativan Inj) 1 mg Q1H PRN IV PUSH Agitation/Sedation; Start 10/21/17 at 13:30; Stop 10/21/17 at 17:01; Status DC Chlorhexidine Gluconate (Peridex 0.12% Liq) 15 ml BID@08,20 MT Last administered on 10/26/17at 08:00; Start 10/21/17 at 20:00 Propofol 100 ml @ 1.899 mls/ hr TITRATE PRN IV SEDATION Last administered on at 00:45; Start 10/21/17 at 13:30 Potassium Chloride 100 ml @ 50 mls/hr Q2H PRN IV For Potassium 2.8 - 3.2 mEq/L ; Start 10/21/17 at 13:30 Potassium Chloride 100 ml @ 50 mls/hr Q2H PRN IV For Potassium 2.8 - 3.2 mEq/L ; Start 10/21/17 at 13:30 Potassium Bicarb/ Potassium Chloride (K-Lyte Cl Eff) 50 meq UNSCH PRN PO For Potassium 3.3 - 3.5 mEq/L; Start 10/21/17 at 13:30 Potassium Chloride 100 ml @ 25 mls/hr UNSCH PRN IV For Potassium 3.3 - 3.5 mEq /L; Start 10/21/17 at 13:30 Potassium Chloride 100 ml @ 50 mls/hr Q2H PRN IV For Potassium 3.3 - 3.5 mEq/L ; Start 10/21/17 at 13:30 Magnesium Sulfate 4 gm/Sodium Chloride 100 ml @ 50 mls/hr UNSCH PRN IV For Magnesium 0.9 - 1.1 mg/dL; Start 10/21/17 at 13:30 Magnesium Oxide (Mag-Ox) 800 mg UNSCH PRN PO For Magnesium 1.2 - 1.6 mg/dL; Start 10/21/17 at 13:30 Magnesium Sulfate 2 gm/Sodium Chloride 100 ml @ 50 mls/hr UNSCH PRN IV For Magnesium 1.2 - 1.6 mg/dL; Start 10/21/17 at 13:30 Potassium Phosphate (K-Phos) 2,000 mg Q4H PRN PO For Phosphorus < 2.5 mg/dL; Start 10/21/17 at 13:30 Sodium Phosphate 30 mmol/Sodium Chloride 250 ml @ 42 mls/hr UNSCH PRN IV For Phosphorus < 2.5 mg/dL; Start 10/21/17 at 13:30 Potassium Phosphate (K-Phos) 2,000 mg UNSCH PRN PO/TUBE SEE LABEL COMMENTS; Start 10/21/17 at 13:30 Potassium Phosphate 30 mmol/ Sodium Chloride 260 ml @ 42 mls/hr UNSCH PRN IV SEE LABEL COMMENTS; Start 10/21/17 at 13:30 Etomidate (Amidate Inj) 20 mg ONCE ONCE IV PUSH Last administered on at 14:26; Start 10/21/17 at 13:30; Stop 10/21/17 at 14:02; Status DC Succinylcholine Chloride (Quelicin Inj) 100 mg ONCE ONCE IV PUSH Last administered on 10/21/17at 14:23; Start 10/21/17 at 14:00; Stop 10/21/17 at 14:01 ; Status DC Fentanyl Citrate 250 ml @ 5 mls/hr TITRATE PRN IV SEDATION Last administered on 10/26/17at 04:11; Start 10/21/17 at 13:45 Mannitol (Mannitol Inj) 25 gm ONCE ONCE IV Last administered on 10/21/17at 14: 10; Start 10/21/17 at 13:45; Stop 10/21/17 at 14:01; Status DC Midazolam HCl (Versed Inj) 5 mg STK-MED ONCE .ROUTE Last administered on at 14:24; Start 10/21/17 at 13:40; Stop 10/21/17 at 13:41; Status DC Mannitol 50 ml @ As Directed STK-MED ONCE .ROUTE Last administered on at 14:01; Start 10/21/17 at 14:01; Stop 10/21/17 at 14:02; Status DC Sodium Chloride 188 meq/Sodium Chloride 1,047 ml @ 10 mls/hr Q24H IV Last administered on 10/22/17at 09:16; Start 10/21/17 at 16:00 Morphine Sulfate (Morphine Inj) 2 mg STK-MED ONCE .ROUTE Last administered on at 17:05; Start 10/21/17 at 16:09; Stop 10/21/17 at 16:10; Status DC Fentanyl Citrate (fentaNYL INJ) 200 mcg STK-MED ONCE .ROUTE Last administered on 10/21/17at 17:05; Start 10/21/17 at 16:15; Stop 10/21/17 at 16:16; Status DC Norepinephrine Bitartrate 250 ml @ As Directed STK-MED ONCE IV Last administered on 10/21/17at 16:48; Start 10/21/17 at 16:48; Stop 10/21/17 at 16:49 ; Status DC Norepinephrine Bitartrate 4 mg/ Sodium Chloride 250 ml @ 7.5 mls/hr TITRATE PRN IV Blood pressure management Last administered on 10/23/17at 06:12; Start at 17:00 Terbutaline Sulfate (Brethine Inj) 1 mg UNSCH PRN SQ For Extravasation; Start 10/21/17 at 17:00; Stop 10/21/17 at 17:00; Status DC Nicardipine HCl 25 mg/Sodium Chloride 260 ml @ 52 mls/hr TITRATE PRN IV Blood pressure management; Start 10/21/17 at 17:00 Mannitol (Mannitol Inj) 25 gm Q6HR IV ; Start 10/21/17 at 21:00; Stop 10/22/17 at 14:14; Status DC Albuterol/ Ipratropium (Duoneb Neb) 1 ampule Q6HR NEB NEB Last administered on 10/26/17at 08:44; Start 10/22/17 at 16:00 Albuterol/ Ipratropium (Duoneb Neb) 1 ampule Q2HR NEB PRN NEB wheezing Last administered on 10/22/17at 11:53; Start 10/22/17 at 12:00 Insulin Detemir (Levemir Inj) 10 units Q12HR SQ Last administered on 10/26/17at 08:58; Start 10/22/17 at 21:00 Labetalol HCl (Trandate Inj) 10 mg Q1HR PRN IV PUSH SBP>160, DBP>90, HR>65 Last administered on 10/23/17at 16:30; Start 10/23/17 at 16:30 (Godwin Tello MD) Medical Decision Making MDM Remarks 72 y/o female with 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 I reviewed and agree with the findings presented. I attest that I had a [id number] encounter with the patient on the same day, and personally performed and documented my assessment and findings in the medical record. (Godwin Tello MD) Bernice Johnson Oct 22, 2017 16:42 Godwin Tello MD Oct 26, 2017 09:38
--- NOTE | 2017-10-22 17:04 | HHI.HCPN ---
Reason for visit a. To assist with evaluation and management of symptoms including: Encephalopathy, dyspnea and pain b. To assist medical decision maker(s) with: better understanding of current medical conditions; weighing benefits/burdens of medical treatment options; making medical treatment decisions. . Subjective/Interval History Mrs. Lake initially presented to [facility] ED in [place] on 10/17/2017 and was diagnosed with an acute left-sided MCA with subsequent hemorrhagic conversion and 4 mm tyim-ry-[id number] shift. She was transferred to the main campus on 10/21/2017 and underwent brunilda hole with placement of ICP monitor by Dr. Tello. Follow-up visit for symptom management and clarification of medical treatment goals. Patient currently remains sedated on fentanyl 120 g/hour and intubated on mechanical ventilation. On Norepinephrine infusion. CPP of 83; ICP of 8. Hypertonic saline solution being held for sodium level >155. We'll continue to monitor. Chest x-ray on 10/22/17 showing large right-sided pneumothorax for which Dr. Thompson placed right pigtail catheter. . Advance Directives Living Will: Never completed Health Care Surrogate: Never completed Durable Power of Art History Professor: Never completed Advance Directive Specifics Health Care Surrogate(s): Healthcare surrogate designation form has not been completed. . Documented care wishes: No significant advanced directives were completed previously. The patient's states his would not want to be kept alive on machines for a prolonged period of time, and the extended family agrees with that statement. Plan to allow the patient 7-10 days to see if there is any improvement. . Objective Vital Signs Date Time Temp Pulse Resp B/P (MAP) Pulse Ox O2 Delivery O2 Flow Rate FiO2 10/22/17 15:23 100 35 10/22/17 14:00 90 10/22/17 13:40 95 35 10/22/17 12:00 99 10/22/17 12:00 98.9 82 18 126/52 (76) 99 10/22/17 12:00 50 10/22/17 11:25 100 35 10/22/17 10:00 90 10/22/17 09:00 100 35 10/22/17 08:25 100 35 10/22/17 08:00 91 10/22/17 08:00 50 10/22/17 08:00 99.2 74 18 112/58 (76) 99 Automatic Cuff 10/22/17 04:24 98 35 10/22/17 04:00 50 10/22/17 04:00 101.2 77 18 112/56 (74) 98 116/47 (70) 10/22/17 00:35 100 40 10/22/17 00:00 99.2 69 14 133/60 (84) 100 146/48 (80) 10/22/17 00:00 50 10/21/17 20:25 100 50 10/21/17 20:00 61 10/21/17 20:00 50 10/21/17 20:00 99.1 61 14 132/53 (79) 100 10/21/17 18:00 64 Intake & Output 10/22/17 10/22/17 07:00 19:00 Intake Total 895 ml 1047 ml Output Total 400 ml Balance 495 ml 1047 ml IV Total 350 ml 1047 ml Tube Feeding 345 ml Other 200 ml Output Urine Total 400 ml # Bowel Movements 0 Physical Exam CONSTITUTIONAL/GENERAL: This is an adequately nourished, female patient who is critically ill. TUBES/LINES/DRAINS: PIV 2, Rogers catheter, NGT, SCDs, soft restraints SKIN: No jaundice, rashes, or lesions. Ecchymoses on upper extremities. No wounds seen anteriorly. Skin temperature appropriate. Not diaphoretic. HEAD: Atraumatic. Normocephalic. EYES: Pupils equal and round and reactive. Extraocular motions intact. No scleral icterus. No injection or drainage. Fundi not examined. ENT: Unable to assess hearing given patient's clinical condition. Nose without bleeding or purulent drainage. T NECK: Trachea midline. Supple, nontender. No palpable thyroid enlargement or nodularity. CARDIOVASCULAR: Tachycardic. No JVD. Peripheral pulses symmetric. RESPIRATORY/CHEST: Symmetric, unlabored respirations. Tachypneic, respirations 24-26 bpm. Oxygen saturation 98% on 2 L via nasal cannula. GASTROINTESTINAL: Abdomen soft, non-tender, nondistended. No hepato-splenomegaly , or palpable masses. No guarding. Bowel sounds present. GENITOURINARY: Without palpable bladder distension. Rogers catheter in place. MUSCULOSKELETAL: Extremities without clubbing, cyanosis, or edema. No mottling or clubbing. LYMPHATICS: No palpable cervical or supraclavicular adenopathy. NEUROLOGICAL: Minimally responsive. Does not arouse to verbal stimuli or open eyes. Patient withdraws upper and lower extremities on left side to tactile stimuli PSYCHIATRIC: Unable to assess given patient's current clinical condition . . Diagnostic Tests Laboratory Laboratory Tests Test 10/20/17 04:43 10/20/17 04:50 10/20/17 18:00 10/21/17 04:30 Blood Urea Nitrogen 18 MG/DL (7-18) 22 MG/DL (7-18) Creatinine 0.69 MG/DL (0.50-1.00) 0.76 MG/DL (0.50-1.00) Random Glucose 286 MG/DL (74-106) 294 MG/DL (74-106) Calcium Level 8.6 MG/DL (8.5-10.1) 9.0 MG/DL (8.5-10.1) Sodium Level 137 MEQ/L (136-145) 145 MEQ/L (136-145) Potassium Level 2.6 MEQ/L (3.5-5.1) 3.2 MEQ/L (3.5-5.1) 3.1 MEQ/L (3.5-5.1) Chloride Level 102 MEQ/L (98-107) 110 MEQ/L (98-107) Carbon Dioxide Level 28.2 MEQ/L (21.0-32.0) 29.6 MEQ/L (21.0-32.0) Anion Gap 7 MEQ/L (5-15) 5 MEQ/L (5-15) Estimat Glomerular Filtration Rate 84 ML/MIN (>89) 75 ML/MIN (>89) White Blood Count 17.7 TH/MM3 (4.0-11.0) 17.9 TH/MM3 (4.0-11.0) Red Blood Count 4.34 MIL/MM3 (4.00-5.30) 4.43 MIL/MM3 (4.00-5.30) Hemoglobin 13.3 GM/DL (11.6-15.3) 13.9 GM/DL (11.6-15.3) Hematocrit 39.4 % (35.0-46.0) 40.2 % (35.0-46.0) Mean Corpuscular Volume 90.8 FL (80.0-100.0) 90.9 FL (80.0-100.0) Mean Corpuscular Hemoglobin 30.6 PG (27.0-34.0) 31.4 PG (27.0-34.0) Mean Corpuscular Hemoglobin Concent 33.7 % (32.0-36.0) 34.5 % (32.0-36.0) Red Cell Distribution Width 12.3 % (11.6-17.2) 12.8 % (11.6-17.2) Platelet Count 283 TH/MM3 (150-450) 287 TH/MM3 (150-450) Mean Platelet Volume 8.7 FL (7.0-11.0) 8.8 FL (7.0-11.0) Neutrophils (%) (Auto) 83.9 % (16.0-70.0) 82.5 % (16.0-70.0) Lymphocytes (%) (Auto) 8.3 % (9.0-44.0) 9.8 % (9.0-44.0) Monocytes (%) (Auto) 7.4 % (0.0-8.0) 7.3 % (0.0-8.0) Eosinophils (%) (Auto) 0.1 % (0.0-4.0) 0.1 % (0.0-4.0) Basophils (%) (Auto) 0.3 % (0.0-2.0) 0.3 % (0.0-2.0) Neutrophils # (Auto) 14.8 TH/MM3 (1.8-7.7) 14.7 TH/MM3 (1.8-7.7) Lymphocytes # (Auto) 1.5 TH/MM3 (1.0-4.8) 1.8 TH/MM3 (1.0-4.8) Monocytes # (Auto) 1.3 TH/MM3 (0-0.9) 1.3 TH/MM3 (0-0.9) Eosinophils # (Auto) 0.0 TH/MM3 (0-0.4) 0.0 TH/MM3 (0-0.4) Basophils # (Auto) 0.1 TH/MM3 (0-0.2) 0.1 TH/MM3 (0-0.2) CBC Comment DIFF FINAL AUTO DIFF Differential Comment AUTO DIFF CONFIRMED Magnesium Level 2.0 MG/DL (1.5-2.5) 2.0 MG/DL (1.5-2.5) Test 10/21/17 14:05 10/21/17 14:35 10/21/17 15:40 10/21/17 18:38 Potassium Level 5.0 MEQ/L (3.5-5.1) 4.0 MEQ/L (3.5-5.1) Phosphorus Level 1.8 MG/DL (2.5-4.9) Blood Gas Puncture Site RT RADIAL ART LINE Blood Gas Patient Temperature 37.0 98.6 Blood Gas HCO3 25 mmol/L (22-26) 23 mmol/L (22-26) Blood Gas Base Excess 1.7 mmol/L (-2-2) -0.2 mmol/L (-2-2) Blood Gas Oxygen Saturation 97 % (90-100) 98 % (90-100) Arterial Blood pH 7.51 (7.380-7.420) 7.45 (7.380-7.420) Arterial Blood Partial Pressure CO2 31 mmHg (38-42) 34 mmHg (38-42) Arterial Blood Partial Pressure O2 181 mmHg (61-120) 224 mmHg (61-120) Arterial Blood Oxygen Content 18.2 Vol % (12.0-20.0) 16.2 Vol % (12.0-20.0) Arterial Blood Carboxyhemoglobin 1.3 % (0-4) 1.1 % (0-4) Arterial Blood Methemoglobin 1.0 % (0-2) 0.6 % (0-2) Blood Gas Hemoglobin 13.0 G/DL (12.0-16.0) 11.4 G/DL (12.0-16.0) Oxygen Delivery Device VENTILATOR VENTILATOR Blood Gas Ventilator Setting PRVC/AC Blood Gas Inspired Oxygen 50 % 50 % Blood Urea Nitrogen 27 MG/DL (7-18) Creatinine 1.06 MG/DL (0.50-1.00) Random Glucose 94 MG/DL (74-106) Calcium Level 8.7 MG/DL (8.5-10.1) Sodium Level 153 MEQ/L (136-145) Chloride Level 118 MEQ/L (98-107) Carbon Dioxide Level 26.7 MEQ/L (21.0-32.0) Anion Gap 8 MEQ/L (5-15) Estimat Glomerular Filtration Rate 51 ML/MIN (>89) Test 10/21/17 19:48 10/22/17 01:50 10/22/17 04:45 10/22/17 08:30 Sodium Level 154 MEQ/L (136-145) 153 MEQ/L (136-145) 155 MEQ/L (136-145) 157 MEQ/L (136-145) Serum Osmolality 327 MOSM/KG (275-295) 342 MOSM/KG (275-295) 347 MOSM/KG (275-295) White Blood Count 14.2 TH/MM3 (4.0-11.0) Red Blood Count 3.70 MIL/MM3 (4.00-5.30) Hemoglobin 11.7 GM/DL (11.6-15.3) Hematocrit 34.7 % (35.0-46.0) Mean Corpuscular Volume 93.8 FL (80.0-100.0) Mean Corpuscular Hemoglobin 31.5 PG (27.0-34.0) Mean Corpuscular Hemoglobin Concent 33.6 % (32.0-36.0) Red Cell Distribution Width 13.5 % (11.6-17.2) Platelet Count 267 TH/MM3 (150-450) Mean Platelet Volume 9.0 FL (7.0-11.0) Neutrophils (%) (Auto) 73.3 % (16.0-70.0) Lymphocytes (%) (Auto) 18.2 % (9.0-44.0) Monocytes (%) (Auto) 8.1 % (0.0-8.0) Eosinophils (%) (Auto) 0.1 % (0.0-4.0) Basophils (%) (Auto) 0.3 % (0.0-2.0) Neutrophils # (Auto) 10.4 TH/MM3 (1.8-7.7) Lymphocytes # (Auto) 2.6 TH/MM3 (1.0-4.8) Monocytes # (Auto) 1.2 TH/MM3 (0-0.9) Eosinophils # (Auto) 0.0 TH/MM3 (0-0.4) Basophils # (Auto) 0.0 TH/MM3 (0-0.2) CBC Comment DIFF FINAL Differential Comment Blood Urea Nitrogen 38 MG/DL (7-18) Creatinine 1.22 MG/DL (0.50-1.00) Random Glucose 282 MG/DL (74-106) Calcium Level 8.1 MG/DL (8.5-10.1) Magnesium Level 2.2 MG/DL (1.5-2.5) Potassium Level 4.2 MEQ/L (3.5-5.1) Chloride Level 123 MEQ/L (98-107) Carbon Dioxide Level 23.0 MEQ/L (21.0-32.0) Anion Gap 9 MEQ/L (5-15) Estimat Glomerular Filtration Rate 43 ML/MIN (>89) Test 10/22/17 09:00 10/22/17 14:00 Blood Gas Puncture Site ART LINE Blood Gas Patient Temperature 98.6 Blood Gas HCO3 22 mmol/L (22-26) Blood Gas Base Excess -2.3 mmol/L (-2-2) Blood Gas Oxygen Saturation 95 % (90-100) Arterial Blood pH 7.40 (7.380-7.420) Arterial Blood Partial Pressure CO2 36 mmHg (38-42) Arterial Blood Partial Pressure O2 88 mmHg (61-120) Arterial Blood Oxygen Content 15.6 Vol % (12.0-20.0) Arterial Blood Carboxyhemoglobin 1.2 % (0-4) Arterial Blood Methemoglobin 0.8 % (0-2) Blood Gas Hemoglobin 11.6 G/DL (12.0-16.0) Oxygen Delivery Device VENTILATOR Blood Gas Ventilator Setting SEE COMMENT Blood Gas Inspired Oxygen 35 % Sodium Level 158 MEQ/L (136-145) Serum Osmolality 344 MOSM/KG (275-295) Result Diagram: 10/22/17 0445 10/22/17 1400 Microbiology Microbiology Date/Time Source Procedure Growth Status 10/21/17 19:40 Blood Peripheral Aerobic Blood Culture - Preliminary NO GROWTH IN 1 DAY Resulted 10/21/17 19:40 Blood Peripheral Anaerobic Blood Culture - Preliminary NO GROWTH IN 1 DAY Resulted 10/21/17 15:35 Blood Peripheral Aerobic Blood Culture - Preliminary NO GROWTH IN 1 DAY Resulted 10/21/17 15:35 Blood Peripheral Anaerobic Blood Culture - Preliminary NO GROWTH IN 1 DAY Resulted 10/21/17 18:00 Nasal Washing Influenza Types A,B Antigen (MARINA) - Final NEGATIVE FOR FLU A AND B ANTIGEN.... Complete 10/21/17 13:30 Sputum Endotracheal Gram Stain - Final Resulted 10/21/17 13:30 Sputum Endotracheal Sputum Culture - Preliminary RESULTS PENDING Resulted Procedures 10/17/2017: NGT placement 10/21/17: Right subclavian CVL 10/22/17: Left radial arterial line placement 10/22/17: Pigtail catheter placement . . Assessment and Plan Disease Oriented Problem List: (1) Hypertension (2) Diabetes (3) Hyperlipidemia (4) Acute CVA (cerebrovascular accident) Symptom Scale: (1) Dyspnea (2) Encephalopathy (3) Pain Pertinent Non-Medical Issues Psychosocial: Patient is originally from [place]. She has been to her current (Odilon) for approximately 25 years. Odilon has 1 adult son from a previous relationship, and Ester (who prefers to be called by her middle name- Indy) has 2 adult sons. Etser worked a [employer] in [facility]. When her retired 18 years ago, she quit her job in [place]. Spiritual: Gnosticism serg Legal: Per [place] statutes, and absence of written advanced directives healthcare proxy decision-making falls to the patient's . Ethical issues impacting care: No known ethical issues impacting care at this time . Important Contacts Odilon Lake, spouse: [phone] . Prognosis Patient is a 72-year-old female who has sustained a large left-sided MCA stroke ; prognosis is guarded. The patient survives this hospitalization, she will likely have a prolonged recovery which makes her high risk for ongoing setbacks and complications. . Code Status: Alternative Code (intubation only) Plan * ALTERNATE CODE-intubation only * Decision-making: Patient is unable to participate in medical decision making given her current clinical condition, it is unknown if she will be able to participate in the future. Per [place] statutes, and absence of written advanced directives healthcare proxy decision-making falls to the patient's . * Aggressive up to the point of cardiopulmonary resuscitation. CODE STATUS ALTERNATE CODE-intubation only. Family would like to allow the patient 7-10 days to see if there is any improvement; if there is no improvement they may consider transitioning to comfort focused care at that time. * Attempted to contact patient's via telephone, message left on voicemail. * Symptom management: == Dyspnea: Intubated on mechanical ventilator. Chest x-ray on 10/22/17 showing large right-sided pneumothorax with pleural separation up to 4.1 cm near the apex status Right pigtail placement. On scheduled and PRN nebulizers. == Encephalopathy: Status post left MCA stroke with subsequent hemorrhagic conversion and 4 mm voee-ef-jhpyu shift. Monitoring CPP and ICP. == Pain: Multifactorial. Sedated on fentanyl 50 g/hour. Contributing factors include postoperative pain status post bolt placement, recent CVA, ETT, NGT, invasive line, immobility. Will continue to monitor for nonverbal signs and symptoms of pain. * Palliative care will continue to follow this patient throughout his/her hospitaization to build rapport, assist with symptom managment and goal clarification. . Soraya Silveira Oct 22, 2017 17:04
[2017-10-22] MEDS: ATORVASTATIN 40 MG TAB PO SCH (20:21)
[2017-10-23] VITALS (19 sets, daily range): BP systolic 95–156; BP diastolic 58–83; PULSE 95–117; RESP 18; TEMP 98.2–101.5; O2SAT 98–100
[2017-10-23] MEDS: fentaNYL DRIP 250 ML IV PRN ×2 (00:12→19:38)
[2017-10-23] MEDS: PROPOFOL 1000 MG/100 ML INJ 100 ML IV PRN (00:45)
[2017-10-23] MEDS: SODIUM CHLORIDE 23.4% INJ 188 MEQ in SODIUM CHLOR 0.9% 1000 ML INJ 1,000 ML IV SCH (02:54)
[2017-10-23] MEDS: RESP: ALBUTEROL 2.5 MG/IPRATROPIUM 0.5 MG NEB (SCH) NEB ×4 (03:41→22:34)
--- NOTE | 2017-10-23 05:05 | MG ---
cc: TOM OLIVARES Lab No: [id number] Date: 10/22/2017 Age: Sex: F Race: TECHNIQUE This is a 17 channel EEG. DESCRIPTION The background rhythm reveals generalized slowing in the delta frequency, 3-4 Hz. Amplitude is about 10 microvolts. There is fairly frequent muscle artifact. There are no lateralizing features identified and no epileptic features are seen. Photic stimulation results in no driving response. INTERPRETATION Abnormal study consistent with a moderate to severe encephalopathy. MD CARITO Molina/GRACIELA /8:35 PM /5:00 AM
[2017-10-23] MEDS: CHLORHEXIDINE 0.12% (ORAL KIT) 15 ML CUP MT SCH ×2 (08:00→20:00)
[2017-10-23] MEDS: SODIUM CHLORIDE 0.9% FLUSH 10 ML FLUSH IV FLUSH SCH ×2 (09:00→20:30)
[2017-10-23] MEDS: DOCUSATE SODIUM 100 MG CAP PO SCH ×2 (09:36→21:08)
[2017-10-23] MEDS: INSULIN NovoLIN REGULAR SUPPLEMENTAL SCALE SQ SCH ×4 (09:36→21:09)
[2017-10-23] MEDS: INSULIN DETEMIR 100 UNITS/ML VIAL SQ SCH ×2 (09:36→21:08)
[2017-10-23] MEDS: FAMOTIDINE 20 MG/2 ML VIAL IV PUSH SCH ×2 (09:36→21:08)
--- NOTE | 2017-10-23 10:35 | HHI.NSPN ---
(Bernice Johnson) Note Status Status: Progress Note (Bernice Johnson) Interval History Interval History 72-year-old white female admitted with acute altered mental status. She did not verbalize any coherent speech nor follow any commands. She was admitted to [facility]. Apparently not much was done there. She deteriorated todat requiring emergency endotracheal intubation. I was called urgently by Dr Barton, However the patient is still not here. 10/22: ICPs below 15, intubated, mildly sedated on propofol. 10/23: ICPs normal, moving left side spontaneously, remains intubated. (Bernice Johnson) Labs, Micro, & Vital Signs Results Date Time Temp Pulse Resp B/P (MAP) Pulse Ox O2 Delivery O2 Flow Rate FiO2 10/23/17 09:04 99 30 10/23/17 09:00 98 30 10/23/17 06:12 109 133/62 10/23/17 06:00 110 10/23/17 04:00 98.2 111 18 95/79 (84) 100 10/23/17 04:00 110 10/23/17 04:00 30 10/23/17 03:42 99 30 10/23/17 02:00 114 10/23/17 00:24 99 30 10/23/17 00:00 111 10/23/17 00:00 50 10/23/17 00:00 101.5 111 18 95/79 (84) 100 10/23/17 00:00 30 10/22/17 22:00 112 10/22/17 20:54 99 30 10/22/17 20:00 30 10/22/17 20:00 104 10/22/17 20:00 50 10/22/17 20:00 100.9 104 18 98/58 (71) 100 10/22/17 18:00 6 10/22/17 16:00 98 10/22/17 16:00 50 10/22/17 16:00 99.0 104 18 136/50 (78) 100 10/22/17 15:23 100 35 10/22/17 14:00 90 10/22/17 13:40 95 35 10/22/17 12:00 99 10/22/17 12:00 98.9 82 18 126/52 (76) 99 10/22/17 12:00 50 10/22/17 11:25 100 35 Constitutional Vital Signs Date Time Temp Pulse Resp B/P (MAP) Pulse Ox O2 Delivery O2 Flow Rate FiO2 10/23/17 09:04 99 30 10/23/17 09:00 98 30 10/23/17 06:12 109 133/62 10/23/17 06:00 110 10/23/17 04:00 98.2 111 18 95/79 (84) 100 10/23/17 04:00 110 10/23/17 04:00 30 10/23/17 03:42 99 30 10/23/17 02:00 114 10/23/17 00:24 99 30 10/23/17 00:00 111 10/23/17 00:00 50 10/23/17 00:00 101.5 111 18 95/79 (84) 100 10/23/17 00:00 30 10/22/17 22:00 112 10/22/17 20:54 99 30 10/22/17 20:00 30 10/22/17 20:00 104 10/22/17 20:00 50 10/22/17 20:00 100.9 104 18 98/58 (71) 100 10/22/17 18:00 6 10/22/17 16:00 98 10/22/17 16:00 50 10/22/17 16:00 99.0 104 18 136/50 (78) 100 10/22/17 15:23 100 35 10/22/17 14:00 90 10/22/17 13:40 95 35 10/22/17 12:00 99 10/22/17 12:00 98.9 82 18 126/52 (76) 99 10/22/17 12:00 50 10/22/17 11:25 100 35 (Bernice Johnson) Review of Systems ROS Limitations: Intubated (Bernice Johnson) Physical Exam Ms. Lake is intubated and sedated. She grimaces to noxious stimuli. does not follow commands bolt clean and dry. ICPs = 7 Cranial Nerves: Pupils 2-3 mm equal, round, reactive to light. Eyes appear conjugated. Cervical Spine: soft, supple Motor: not following commands for testing moving left side spontaneously, right hemiparesis Reflexes: trace throughout. Plantars silent bilaterally. Sensory: sedated, minimal to no response Cerebellar: cannot be assessed due to current clinical condition Lungs: clear Heart: regular rate Skin: warm and dry (Bernice Johnson) Intubated and sedated. She grimaces to noxious stimuli. does not follow commands bolt clean and dry. ICPs = 7 Cranial Nerves: Pupils 2-3 mm equal, round, reactive to light. Eyes appear conjugated. Cervical Spine: soft, supple Motor: not following commands for testing moving left side spontaneously, right hemiparesis Reflexes: trace throughout. Plantars silent bilaterally. Sensory: sedated, minimal to no response Cerebellar: cannot be assessed due to current clinical condition Lungs: clear Heart: regular rate Skin: warm and dry (Godwin Tello MD) Medications Current Medications Current Medications Medications (Trade) Dose Ordered Sig/Jeyson Route PRN Reason Start Time Stop Time Status Last Admin Dose Admin Sodium Chloride (NS Flush) 2 ml BID IV FLUSH 10/17/17 21:00 10/23/17 09:00 Sodium Chloride (NS Flush) 2 ml UNSCH PRN IV FLUSH FLUSH AFTER USING IV ACCESS 10/17/17 09:45 Atorvastatin Calcium (Lipitor) 40 mg HS PO 10/18/17 21:00 10/22/17 20:21 Miscellaneous Information Patient in critical care unit? Ass... Q361D .XX 10/17/17 11:00 10/17/17 11:00 Ondansetron HCl (Zofran Inj) 4 mg Q6HR PRN IV PUSH NAUSEA OR VOMITING 10/18/17 00:45 10/18/17 00:48 Prochlorperazine Edisylate (Compazine Inj) 5 mg Q4H PRN IV PUSH N/V not relieved with Zofran 10/18/17 00:45 Verapamil HCl (Isoptin) 120 mg BID PO 10/19/17 21:00 Future Hold 10/21/17 10:30 Enoxaparin Sodium (Lovenox Inj) 30 mg Q24H SQ 10/19/17 15:00 Future Hold 10/20/17 15:39 Docusate Sodium (Colace) 100 mg BID PO 10/19/17 15:00 10/23/17 09:36 Losartan Potassium (Cozaar) 100 mg DAILY PO 10/19/17 15:00 Future Hold 10/21/17 10:30 Insulin Human Regular (NovoLIN R SUPPLEMENTAL SCALE) 1 ACHS SLIDING SCALE SQ 10/19/17 17:00 10/23/17 09:36 Aspirin (Aspirin Supp) 300 mg DAILY RECTAL 10/21/17 09:00 Future Hold Dopamine HCl/ Dextrose 500 ml @ 7.121 mls/ hr TITRATE PRN IV Blood Pressure Management/ HR 10/21/17 12:15 Terbutaline Sulfate (Brethine Inj) 1 mg UNSCH PRN SQ For Extravasation 10/21/17 12:15 Famotidine (Pepcid Inj) 20 mg Q12HR IV PUSH 10/21/17 21:00 10/23/17 09:36 Midazolam HCl (Versed Inj) 2 mg Q1H PRN IV PUSH SEDATION 10/21/17 13:30 Chlorhexidine Gluconate (Peridex 0.12% Liq) 15 ml BID@08,20 MT 10/21/17 20:00 10/23/17 08:00 Propofol 100 ml @ 1.899 mls/ hr TITRATE PRN IV SEDATION 10/21/17 13:30 10/23/17 00:45 Potassium Chloride 100 ml @ 50 mls/hr Q2H PRN IV For Potassium 2.8 - 3.2 mEq/L 10/21/17 13:30 Potassium Chloride 100 ml @ 50 mls/hr Q2H PRN IV For Potassium 2.8 - 3.2 mEq/L 10/21/17 13:30 Potassium Bicarb/ Potassium Chloride (K-Lyte Cl Eff) 50 meq UNSCH PRN PO For Potassium 3.3 - 3.5 mEq/L 10/21/17 13:30 Potassium Chloride 100 ml @ 25 mls/hr UNSCH PRN IV For Potassium 3.3 - 3.5 mEq/L 10/21/17 13:30 Potassium Chloride 100 ml @ 50 mls/hr Q2H PRN IV For Potassium 3.3 - 3.5 mEq/L 10/21/17 13:30 Magnesium Sulfate 4 gm/Sodium Chloride 100 ml @ 50 mls/hr UNSCH PRN IV For Magnesium 0.9 - 1.1 mg/dL 10/21/17 13:30 Magnesium Oxide (Mag-Ox) 800 mg UNSCH PRN PO For Magnesium 1.2 - 1.6 mg/dL 10/21/17 13:30 Magnesium Sulfate 2 gm/Sodium Chloride 100 ml @ 50 mls/hr UNSCH PRN IV For Magnesium 1.2 - 1.6 mg/dL 10/21/17 13:30 Potassium Phosphate (K-Phos) 2,000 mg Q4H PRN PO For Phosphorus < 2.5 mg/dL 10/21/17 13:30 Sodium Phosphate 30 mmol/Sodium Chloride 250 ml @ 42 mls/hr UNSCH PRN IV For Phosphorus < 2.5 mg/dL 10/21/17 13:30 Potassium Phosphate (K-Phos) 2,000 mg UNSCH PRN PO/TUBE SEE LABEL COMMENTS 10/21/17 13:30 Potassium Phosphate 30 mmol/ Sodium Chloride 260 ml @ 42 mls/hr UNSCH PRN IV SEE LABEL COMMENTS 10/21/17 13:30 Fentanyl Citrate 250 ml @ 5 mls/hr TITRATE PRN IV SEDATION 10/21/17 13:45 10/23/17 00:12 Sodium Chloride 188 meq/Sodium Chloride 1,047 ml @ 60 mls/hr [id number] IV 10/21/17 16:00 10/22/17 09:16 Norepinephrine Bitartrate 4 mg/ Sodium Chloride 250 ml @ 7.5 mls/hr TITRATE PRN IV Blood pressure management 10/21/17 17:00 10/23/17 06:12 Nicardipine HCl 25 mg/Sodium Chloride 260 ml @ 52 mls/hr TITRATE PRN IV Blood pressure management 10/21/17 17:00 Albuterol/ Ipratropium (Duoneb Neb) 1 ampule Q6HR NEB NEB 10/22/17 16:00 10/23/17 08:55 Albuterol/ Ipratropium (Duoneb Neb) 1 ampule Q2HR NEB PRN NEB wheezing 10/22/17 12:00 10/22/17 11:53 Insulin Detemir (Levemir Inj) 10 units Q12HR SQ 10/22/17 21:00 10/23/17 09:36 (Bernice Johnson) Current Medications Current Medications Nicardipine HCl 25 mg/Sodium Chloride 250 ml @ 50 mls/hr TITRATE PRN IV Blood pressure management Last administered on 10/17/17at 09:20; Start 10/17/17 at 08: 45; Stop 10/17/17 at 19:52; Status DC Aspirin (Aspirin Supp) 300 mg ONCE ONCE RECTAL Last administered on 10/17/17at 10:14; Start 10/17/17 at 09:30; Stop 10/17/17 at 09:31; Status DC Sodium Chloride (NS Flush) 2 ml BID IV FLUSH Last administered on 10/26/17at 08: 58; Start 10/17/17 at 21:00 Sodium Chloride (NS Flush) 2 ml UNSCH PRN IV FLUSH FLUSH AFTER USING IV ACCESS ; Start 10/17/17 at 09:45 Insulin Aspart (NovoLOG SUPPLEMENTAL SCALE) 1 ACHS SQ Last administered on 10/19at 13:24; Start 10/17/17 at 12:00; Stop 10/19/17 at 15:06; Status DC Dextrose (D50w (Vial) Inj) 50 ml UNSCH PRN IV PUSH HYPOGLYCEMIA-SEE COMMENTS; Start 10/17/17 at 09:45; Stop 10/19/17 at 15:06; Status DC Glucagon (Glucagon Inj) 1 mg UNSCH PRN OTHER HYPOGLYCEMIA-SEE COMMENTS; Start 10/17/17 at 09:45; Stop 10/19/17 at 15:06; Status DC Atorvastatin Calcium (Lipitor) 40 mg HS PO Last administered on 10/25/17at 22:02 ; Start 10/18/17 at 21:00 Atorvastatin Calcium (Lipitor) 40 mg ONCE ONCE PO ; Start 10/17/17 at 11:00; Stop 10/17/17 at 11:01; Status DC Sodium Chloride 1,000 ml @ 75 mls/hr [id number] IV Last administered on at 20:39; Start 10/17/17 at 10:30; Stop 10/20/17 at 13:40; Status DC Doxycycline Hyclate 100 mg/ Sodium Chloride 100 ml @ 100 mls/hr Q12H IV Last administered on 10/19/17at 13:23; Start 10/17/17 at 12:00; Stop 10/19/17 at 15:11 ; Status DC Miscellaneous Information Patient in critical care unit? Ass... Q361D .XX Last administered on 10/17/17at 11:00; Start 10/17/17 at 11:00 Chlorhexidine Gluconate (Chlorhexidine 2% Cloth) 3 pack DAILY@04 TOPICAL Last administered on 10/21/17at 04:00; Start 10/18/17 at 04:00; Stop 10/22/17 at 04:01 ; Status DC Chlorhexidine Gluconate (Chlorhexidine 2% Cloth) 3 pack UNSCH PRN TOPICAL HYGIENIC CARE; Start 10/17/17 at 11:00; Stop 10/22/17 at 10:57; Status DC Gadobenate Dimeglumine (Multihance Pf Inj) 15 ml STK-MED ONCE IV Last administered on 10/17/17at 12:02; Start 10/17/17 at 12:02; Stop 10/17/17 at 12:03 ; Status DC Nicardipine HCl 25 mg/Sodium Chloride 260 ml @ 52 mls/hr TITRATE PRN IV Blood pressure management Last administered on 10/21/17at 08:14; Start 10/17/17 at 20: 00; Stop 10/21/17 at 12:11; Status DC Ondansetron HCl (Zofran Inj) 4 mg Q6HR PRN IV PUSH NAUSEA OR VOMITING Last administered on 10/18/17at 00:48; Start 10/18/17 at 00:45 Prochlorperazine Edisylate (Compazine Inj) 5 mg Q4H PRN IV PUSH N/V not relieved with Zofran; Start 10/18/17 at 00:45 Labetalol HCl (Trandate Inj) 20 mg ONCE ONCE IV PUSH ; Start 10/19/17 at 15:00 ; Stop 10/19/17 at 15:07; Status DC Atenolol (Tenormin) 25 mg DAILY PO Last administered on 10/20/17at 08:10; Start 10/19/17 at 15:00; Stop 10/20/17 at 16:26; Status DC Verapamil HCl (Isoptin) 120 mg BID PO Last administered on 10/21/17at 10:30; Start 10/19/17 at 21:00; Status Future Hold Aspirin (Aspirin Supp) 300 mg ONCE ONCE RECTAL Last administered on 10/19/17at 15:00; Start 10/19/17 at 15:00; Stop 10/19/17 at 15:01; Status DC Enoxaparin Sodium (Lovenox Inj) 30 mg Q24H SQ Last administered on 10/20/17at 15 :39; Start 10/19/17 at 15:00; Status Future Hold Docusate Sodium (Colace) 100 mg BID PO Last administered on 10/26/17at 08:58; Start 10/19/17 at 15:00 Losartan Potassium (Cozaar) 100 mg DAILY PO Last administered on 10/21/17at 10: 30; Start 10/19/17 at 15:00; Status Future Hold Insulin Human Regular (NovoLIN R SUPPLEMENTAL SCALE) 1 ACHS SLIDING SCALE SQ Last administered on 10/26/17at 08:00; Start 10/19/17 at 17:00 Diltiazem HCl (Cardizem Inj) 10 mg ONCE ONCE IV Last administered on at 15:16; Start 10/19/17 at 15:15; Stop 10/19/17 at 15:16; Status DC Insulin Detemir (Levemir Inj) 10 units HS SQ Last administered on 10/20/17at 20: 51; Start 10/19/17 at 21:00; Stop 10/21/17 at 07:44; Status DC Potassium Bicarb/ Potassium Chloride (K-Lyte Cl Eff) 50 meq Q1H NG Last administered on 10/20/17at 08:11; Start 10/20/17 at 08:00; Stop 10/20/17 at 09:01 ; Status DC Potassium Chloride 100 ml @ 50 mls/hr ONCE ONCE IV Last administered on at 07:56; Start 10/20/17 at 08:00; Stop 10/20/17 at 09:59; Status DC Atenolol (Tenormin) 25 mg BID PO Last administered on 10/21/17at 10:30; Start at 21:00; Stop 10/21/17 at 17:01; Status DC Aspirin (Aspirin Supp) 300 mg DAILY RECTAL ; Start 10/21/17 at 09:00; Status Future Hold Potassium Bicarb/ Potassium Chloride (K-Lyte Cl Eff) 25 meq ONCE ONCE PO Last administered on 10/20/17at 23:21; Start 10/20/17 at 23:00; Stop 10/20/17 at 23:01; Status DC Potassium Bicarb/ Potassium Chloride (K-Lyte Cl Eff) 50 meq ONCE ONCE PO Last administered on 10/21/17at 10:31; Start 10/21/17 at 07:45; Stop 10/21/17 at 07:52; Status DC Potassium Chloride 100 ml @ 50 mls/hr BOLUS ONCE IV Last administered on 10/21at 10:18; Start 10/21/17 at 07:45; Stop 10/21/17 at 09:44; Status DC Insulin Detemir (Levemir Inj) 10 units BID SQ Last administered on 10/22/17at 09 :16; Start 10/21/17 at 09:00; Stop 10/22/17 at 14:13; Status DC Hydralazine HCl (Apresoline) 10 mg Q6HR NG Last administered on 10/21/17at 08:15 ; Start 10/21/17 at 08:15; Stop 10/21/17 at 12:11; Status DC Potassium Chloride 100 ml @ 50 mls/hr BOLUS ONCE IV Last administered on 10/21at 17:07; Start 10/21/17 at 11:15; Stop 10/21/17 at 13:14; Status DC Nicardipine HCl 25 mg/Sodium Chloride 260 ml @ 52 mls/hr TITRATE PRN IV Blood pressure management; Start 10/21/17 at 12:15; Stop 10/21/17 at 17:01; Status DC Dopamine HCl/ Dextrose 500 ml @ 7.121 mls/ hr TITRATE PRN IV Blood Pressure Management/ HR ; Start 10/21/17 at 12:15 Terbutaline Sulfate (Brethine Inj) 1 mg UNSCH PRN SQ For Extravasation; Start 10/21/17 at 12:15 Succinylcholine Chloride (Quelicin Inj) 200 mg STK-MED ONCE .ROUTE ; Start 10/21 at 13:13; Stop 10/21/17 at 13:14; Status DC Etomidate (Amidate Inj) 20 mg STK-MED ONCE .ROUTE ; Start 10/21/17 at 13:13; Stop 10/21/17 at 13:14; Status DC Propofol 50 ml @ As Directed STK-MED ONCE .ROUTE Last administered on at 14:24; Start 10/21/17 at 13:21; Stop 10/21/17 at 13:22; Status DC Famotidine (Pepcid Inj) 20 mg Q12HR IV PUSH Last administered on 10/26/17at 08: 58; Start 10/21/17 at 21:00 Midazolam HCl (Versed Inj) 2 mg Q1H PRN IV PUSH SEDATION; Start 10/21/17 at 13: 30 Lorazepam (Ativan Inj) 1 mg Q1H PRN IV PUSH Agitation/Sedation; Start 10/21/17 at 13:30; Stop 10/21/17 at 17:01; Status DC Chlorhexidine Gluconate (Peridex 0.12% Liq) 15 ml BID@08,20 MT Last administered on 10/26/17at 08:00; Start 10/21/17 at 20:00 Propofol 100 ml @ 1.899 mls/ hr TITRATE PRN IV SEDATION Last administered on at 00:45; Start 10/21/17 at 13:30 Potassium Chloride 100 ml @ 50 mls/hr Q2H PRN IV For Potassium 2.8 - 3.2 mEq/L ; Start 10/21/17 at 13:30 Potassium Chloride 100 ml @ 50 mls/hr Q2H PRN IV For Potassium 2.8 - 3.2 mEq/L ; Start 10/21/17 at 13:30 Potassium Bicarb/ Potassium Chloride (K-Lyte Cl Eff) 50 meq UNSCH PRN PO For Potassium 3.3 - 3.5 mEq/L; Start 10/21/17 at 13:30 Potassium Chloride 100 ml @ 25 mls/hr UNSCH PRN IV For Potassium 3.3 - 3.5 mEq /L; Start 10/21/17 at 13:30 Potassium Chloride 100 ml @ 50 mls/hr Q2H PRN IV For Potassium 3.3 - 3.5 mEq/L ; Start 10/21/17 at 13:30 Magnesium Sulfate 4 gm/Sodium Chloride 100 ml @ 50 mls/hr UNSCH PRN IV For Magnesium 0.9 - 1.1 mg/dL; Start 10/21/17 at 13:30 Magnesium Oxide (Mag-Ox) 800 mg UNSCH PRN PO For Magnesium 1.2 - 1.6 mg/dL; Start 10/21/17 at 13:30 Magnesium Sulfate 2 gm/Sodium Chloride 100 ml @ 50 mls/hr UNSCH PRN IV For Magnesium 1.2 - 1.6 mg/dL; Start 10/21/17 at 13:30 Potassium Phosphate (K-Phos) 2,000 mg Q4H PRN PO For Phosphorus < 2.5 mg/dL; Start 10/21/17 at 13:30 Sodium Phosphate 30 mmol/Sodium Chloride 250 ml @ 42 mls/hr UNSCH PRN IV For Phosphorus < 2.5 mg/dL; Start 10/21/17 at 13:30 Potassium Phosphate (K-Phos) 2,000 mg UNSCH PRN PO/TUBE SEE LABEL COMMENTS; Start 10/21/17 at 13:30 Potassium Phosphate 30 mmol/ Sodium Chloride 260 ml @ 42 mls/hr UNSCH PRN IV SEE LABEL COMMENTS; Start 10/21/17 at 13:30 Etomidate (Amidate Inj) 20 mg ONCE ONCE IV PUSH Last administered on at 14:26; Start 10/21/17 at 13:30; Stop 10/21/17 at 14:02; Status DC Succinylcholine Chloride (Quelicin Inj) 100 mg ONCE ONCE IV PUSH Last administered on 10/21/17at 14:23; Start 10/21/17 at 14:00; Stop 10/21/17 at 14:01 ; Status DC Fentanyl Citrate 250 ml @ 5 mls/hr TITRATE PRN IV SEDATION Last administered on 10/26/17at 04:11; Start 10/21/17 at 13:45 Mannitol (Mannitol Inj) 25 gm ONCE ONCE IV Last administered on 10/21/17at 14: 10; Start 10/21/17 at 13:45; Stop 10/21/17 at 14:01; Status DC Midazolam HCl (Versed Inj) 5 mg STK-MED ONCE .ROUTE Last administered on at 14:24; Start 10/21/17 at 13:40; Stop 10/21/17 at 13:41; Status DC Mannitol 50 ml @ As Directed STK-MED ONCE .ROUTE Last administered on at 14:01; Start 10/21/17 at 14:01; Stop 10/21/17 at 14:02; Status DC Sodium Chloride 188 meq/Sodium Chloride 1,047 ml @ 10 mls/hr Q24H IV Last administered on 10/22/17 09:16; Start 10/21/17 at 16:00 Morphine Sulfate (Morphine Inj) 2 mg STK-MED ONCE .ROUTE Last administered on at 17:05; Start 10/21/17 at 16:09; Stop 10/21/17 at 16:10; Status DC Fentanyl Citrate (fentaNYL INJ) 200 mcg STK-MED ONCE .ROUTE Last administered on 10/21/17at 17:05; Start 10/21/17 at 16:15; Stop 10/21/17 at 16:16; Status DC Norepinephrine Bitartrate 250 ml @ As Directed STK-MED ONCE IV Last administered on 10/21/17at 16:48; Start 10/21/17 at 16:48; Stop 10/21/17 at 16:49 ; Status DC Norepinephrine Bitartrate 4 mg/ Sodium Chloride 250 ml @ 7.5 mls/hr TITRATE PRN IV Blood pressure management Last administered on 10/23/17at 06:12; Start at 17:00 Terbutaline Sulfate (Brethine Inj) 1 mg UNSCH PRN SQ For Extravasation; Start 10/21/17 at 17:00; Stop 10/21/17 at 17:00; Status DC Nicardipine HCl 25 mg/Sodium Chloride 260 ml @ 52 mls/hr TITRATE PRN IV Blood pressure management; Start 10/21/17 at 17:00 Mannitol (Mannitol Inj) 25 gm Q6HR IV ; Start 10/21/17 at 21:00; Stop 10/22/17 at 14:14; Status DC Albuterol/ Ipratropium (Duoneb Neb) 1 ampule Q6HR NEB NEB Last administered on 10/26/17at 08:44; Start 10/22/17 at 16:00 Albuterol/ Ipratropium (Duoneb Neb) 1 ampule Q2HR NEB PRN NEB wheezing Last administered on 10/22/17at 11:53; Start 10/22/17 at 12:00 Insulin Detemir (Levemir Inj) 10 units Q12HR SQ Last administered on 10/26/17at 08:58; Start 10/22/17 at 21:00 Labetalol HCl (Trandate Inj) 10 mg Q1HR PRN IV PUSH SBP>160, DBP>90, HR>65 Last administered on 10/23/17at 16:30; Start 10/23/17 at 16:30 (Godwin Tello MD) Medical Decision Making MDM Remarks 72 y/o female with 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 Tello, cont hyperosmotic treatment serial neuro checks, wean sedation and follow up neuro exam cont critical care neurology following f/u CT Head tomorrow am (Bernice Johnson) Attending Statement Large infarction in dominant hemisphere Will remove ICP monitor Paliative care consulted The exam, history, and the medical decision-making described in the above note were completed with the assistance of the mid-level provider. I reviewed and agree with the findings presented. I attest that I had a [id number] encounter with the patient on the same day, and personally performed and documented my assessment and findings in the medical record. (Godwin Tello MD) Bernice Johnson Oct 23, 2017 10:35 Godwin Tello MD Oct 26, 2017 09:43
--- NOTE | 2017-10-23 15:16 | HHI.CCPN ---
Subjective Remarks/Hospital Course 10/21: 72-year-old female who recently presented to hospital on October 17, 2017 because sometime in the morning, her found her on the couch almost motionless, slouching in a reclining position. He attempted to stimulator but she only mild response. It was indicated that time that she was moving both her legs but did not notice any movement in her arms. The patient was unable to communicate and no coherent speech, was unable to follow commands. The last time that she is notably normal was the night prior to her going to bed. She had been treating herself for a head cold for approximately a week prior. She was seen in urgent care the day before coming to the hospital and prescribed some kind of antibiotic. As indicated that her blood glucoses were 400 at the urgent care center. Ambulance was called and the patient was brought to the emergency department for evaluation. Patient was not a candidate for TPA at that time due to unknown time frame of onset of symptoms. Patient had workup done in found to have significant hypertension, CT scan did show increased density involving the left MCA as compared to right which is concerning for acute thrombosis. Patient was admitted to the hospital for further evaluation and management. Patient had MRI, MRA performed which did show very large evolving left MCA CVA. Patient clinical condition did not improve, patient was still unable to communicate, unable to open eyes, pupils remained round and reactive to light. Patient was doing well and today on examination she actually hollowed commanded by gripping my hand with her left hand. Patient had been on Cardene and blood pressure medication has been adjusted to maintain systolic blood pressure 140-160. Nursing staff notified me that the patient had acute onset of bradycardia with heart rate in the 30s. At that time I notified Dr. Barton and stat CT was performed. CT did indicate significant worsening of the stroke with hemorrhagic conversion, midline shift. Patient was emergently intubated for airway support. Started hyperventilation to maintain End tidal CO2 30-36, 25 g mannitol IV given, head of bed raised at 45. Patient started on 2% saline solution with monitoring sodium every 6 hours. Stat consultation to neurosurgery was performed. I personally discussed the case with Amy, the PA that works with Dr. Tello. I discussed his case will multimedia services coordinator for Dr. Barton, Dr. Thompson. Stat transfer to the [facility] was requested. 10/22: Remains sedated, orally intubated on mechanical ventilation. Noted to have right pneumothorax on a.m. chest x-ray today for with right pigtail catheter placed by myself following which there was transient airleak was stopped within a minute of chest tube placement. On 2% saline which was held this morning and remains on mannitol. 10/23: No improvement in neurological function. Devastating defect on CT. ICP controlled at 7-8. Tapering off vasopressors. Objective Vital Signs Date Time Temp Pulse Resp B/P (MAP) Pulse Ox O2 Delivery O2 Flow Rate FiO2 10/23/17 14:00 117 10/23/17 12:00 99.9 18 151/66 (94) 100 10/23/17 12:00 30 10/21/17 08:20 Nasal Cannula 2.50 Intake and Output 10/23/17 10/23/17 10/24/17 08:00 16:00 00:00 Intake Total 560 ml 363 ml Output Total 350 ml Balance 210 ml 363 ml Result Diagram: 10/22/17 0445 10/23/17 1115 Other Results Microbiology Date/Time Source Procedure Growth Status 10/21/17 18:00 Nasal Washing Influenza Types A,B Antigen (MARINA) - Final NEGATIVE FOR FLU A AND B ANTIGEN.... Complete 10/21/17 13:30 Sputum Endotracheal Gram Stain - Final Complete 10/21/17 13:30 Sputum Endotracheal Sputum Culture - Final HEAVY GROWTH NORMAL RESPIRATORY ROJAS Complete Imaging Last Impressions Chest X-Ray 10/21/17 1339 Signed Impressions: Service Date/Time: Saturday, October 21, 2017 13:43 - CONCLUSION: Lines and tubes as detailed above. Clear lungs. Lei Cast Jr., MD Head CT 10/21/17 0000 Signed Impressions: Service Date/Time: Saturday, October 21, 2017 12:37 - CONCLUSION: 1. 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 Lei Cast Jr., MD Abdomen X-Ray 10/18/17 0000 Signed Impressions: Service Date/Time: Wednesday, October 18, 2017 17:20 - CONCLUSION: Gastric tube tip and side-port project within the stomach. Lei Kerr MD Neck Magnetic Resonance Angiography 10/17/17 0934 Signed Impressions: Service Date/Time: Tuesday, October 17, 2017 11:17 - CONCLUSION: Mild posterior soft plaque in left carotid bulb non-stenotic. Slit like, pinch stenosis at the origin of the right internal carotid artery. Poor visualization origin of the dominant left vertebral artery . Bilateral internal carotids in the siphon are somewhat irregular and poorly visualized however intracranially there is absence of flow in the left middle cerebral artery. Raj Reinoso MD Head Magnetic Resonance Angiography 10/17/17933 Signed Impressions: Service Date/Time: Tuesday, October 17, 2017 11:17 - CONCLUSION: Complete occlusion of the left MCA corresponding with the hyperdense left MCA seen on comparison CT. Mary Jane Caballero MD Brain MRI 10/17/17933 Signed Impressions: Service Date/Time: Tuesday, October 17, 2017 11:17 - CONCLUSION: Acute left MCA stroke Raj Reinoso MD Objective Remarks GENERAL: Well-developed, well-nourished, patient has decreased mental status, patient does squeeze her hand on the left side when asked HEENT: Head is normocephalic without any lesions or masses noted. Eyes: Conjunctivae were clear. NECK: Supple without any masses. Trachea midline no deviation. Orally intubated. CARDIAC: Regular rhythm, regular rate. S1/S2 are heard. No murmurs gallops or rubs. No JVD. LUNGS: Clear to auscultation bilaterally. No wheeze, rhonchi or rales. ABDOMEN: Soft, nontender. Nondistended. Bowel sounds heard in all 4 quadrants. No guarding. EXTREMITIES: No edema, pulses are equal bilaterally. No cyanosis or clubbing NEUROLOGY: Sedated, orally intubated on mechanical ventilation. Pupils 3 mm bilaterally reacting actively to light. Withdraws left upper extremity with painful stimuli, dense right hemiplegia A/P Problem List: (1) Acute CVA (cerebrovascular accident) ICD Code: I63.9 - Cerebral infarction, unspecified Status: Acute (2) Major neurological deficit ICD Code: R29.818 - Other symptoms and signs involving the nervous system (3) Aphasia due to acute stroke ICD Code: I63.9 - Cerebral infarction, unspecified; R47.01 - Aphasia (4) Right hemiplegia ICD Code: G81.91 - Hemiplegia, unspecified affecting right dominant side (5) Encephalopathy ICD Code: G93.40 - Encephalopathy, unspecified (6) Leukocytosis ICD Code: D72.829 - Elevated white blood cell count, unspecified (7) Hypertension ICD Code: I10 - Essential (primary) hypertension (8) Hyperlipidemia ICD Code: E78.5 - Hyperlipidemia, unspecified (9) Diabetes ICD Code: E11.9 - Type 2 diabetes mellitus without complications Assessment and Plan NEUROLOGY Acute left MCA territory ischemic CVA secondary to occluded left MCA with significant cerebral edema and mass effect with minimal hemorrhagic conversion Gest-mu-jsgyb midline shift 4 mm Right hemiplegia Aphasia Encephalopathy Continue neurochecks per ICU protocol CT scan 10/21 shows hemorrhagic conversion of left MCA territory infarction now with 4 mm of qnid-qg-xxcak midline shift Keep head of bed 45 2% saline to keep sodium 150 - 155 25 g mannitol IV Q6hrly to be stopped later today Monitor sodium/ osmolality every 6 hours Neurosurgical consultation has been requested and patient evaluated by Dr. Tello. [place] placed for ICP monitoring. ICP 5 Propofol/fentanyl for sedation to keep RASS -2 Neurology following the patient PT/OT is following the patient PULMONOLOGY Acute respiratory failure on mechanical ventilation COPD Right pneumothorax status post pigtail catheter placement 10/22 Continue mechanical ventilation Ventilator bundle PRVC 18/500/1.0/5+/50% Monitor end-tidal CO2 and adjust respirations the to keep end-tidal CO2 around 35 No weaning trials still decrease of cerebral edema and midline shift Right pigtail catheter placed for pneumothorax with resolution on 10/22 CARDIOLOGY Hypertension, controlled Hyperlipidemia Acute bradycardia Monitor blood pressure and keep map greater than 65 Dopamine as needed to keep heart rate greater than 50 Levophed for pressor support to keep MAP greater than 65. Echocardiogram does indicate ejection fraction 60-65% with hyperdynamic systolic Cardene drip to keep systolic blood pressure less than 180 Hold Atenolol 25 mg twice daily/losartan 100 mg daily/verapamil 120 mg twice daily in view of hypotension LDL 73, patient started on Lipitor 40 mg daily GASTROENTEROLOGY Dysphagia NG tube is in place at this time Tube feeding at goal of Jevity 1.5 with goal of 45 mL/hour, dietary following GI protection with Pepcid RENAL Monitor renal function ICU electrolyte replacement protocol 2% saline held as sodium greater than 155, will resume for sodium less than 150 INFECTIOUS DISEASE Leukocytosis No acute signs of infection at this time Continue monitor for infection Obtain blood cultures, sputum culture, influenza testing ENDOCRINOLOGY Diabetes Accu-Cheks with sliding scale insulin Levemir 10 units every 12 hours Hemoglobin A1c 7.8 TSH 3.11 HEMATOLOGY Hemoglobin has remained stable, coagulation factors are normal, platelet count is normal Continue monitor and address as needed PROPHYLAXIS GI protection with Pepcid DVT prevention with Lovenox and sequential compression devices LINES Right subclavian central line placed on 10/21 CODE STATUS Alternate CODE STATUS with intubation only. Being followed by palliative care team. Overall impression: Large acute left MCA defect. Neurologically unstable. Discussed with patient's on 10/21 and he tells me that patient would not want tracheostomy or PEG tube placement or neurosurgical intervention. Family is deciding on care goals and limits. Critical Care 38 mins Shaw Boykin MD Oct 23, 2017 15:16
[2017-10-23] MEDS ORDERED: LABETALOL HCL 100 MG/20 ML VIAL IV PUSH PRN (16:30)
[2017-10-23] MEDS: ATORVASTATIN 40 MG TAB PO SCH (21:08)
[2017-10-24] VITALS (21 sets, daily range): BP systolic 120–169; BP diastolic 59–74; PULSE 92–114; RESP 18; TEMP 98.3–100.3; O2SAT 95–100
[2017-10-24] MEDS: SODIUM CHLORIDE 23.4% INJ 188 MEQ in SODIUM CHLOR 0.9% 1000 ML INJ 1,000 ML IV SCH (02:54)
[2017-10-24 03:21] LABS: BICARBONATE 29.5 MEQ/L (21.0-32.0); CALCIUM 8.6 MG/DL (8.5-10.1); CREATININE 0.81 MG/DL (0.50-1.00); MAGNESIUM 2.2 MG/DL (1.5-2.5); PHOSPHORUS 2.2 MG/DL (2.5-4.9)
[2017-10-24 04:27] LABS: HEMATOCRIT 29.8 % (35.0-46.0); HEMOGLOBIN 9.9 GM/DL (11.6-15.3); MEAN CELL VOLUME 93.7 FL (80.0-100.0); MEAN CORPUSCULAR HGB CONC 33.1 % (32.0-36.0); MEAN PLATELET VOLUME 9.2 FL (7.0-11.0); PLATELET COUNT 173 TH/MM3 (150-450); RED BLOOD COUNT 3.18 MIL/MM3 (4.00-5.30); RED CELL DISTRIBUTION WIDTH 13.3 % (11.6-17.2); WHITE BLOOD COUNT 12.8 TH/MM3 (4.0-11.0)
--- NOTE | 2017-10-24 05:04 | RADRPT ---
EXAM DATE/TIME: 10/24/2017 04:43 [facility] COMPARISON: MRI BRAIN W/O CONTRAST, October 17, 2017, 11:17. CT BRAIN W/O CONTRAST, October 17, 2017, 8:51. INDICATIONS : Follow up stroke. RADIATION DOSE: 35.60 CTDIvol (mGy) MEDICAL HISTORY : Cerebrovascular disease. Hypertension. SURGICAL HISTORY : None. ENCOUNTER: Subsequent ACUITY: 1 week PAIN SCALE: Non-responsive LOCATION: cranial TECHNIQUE: Multiple contiguous axial images were obtained of the head. Using automated exposure control and adj ustment of the mA and/or kV according to patient size, radiation dose was kept as low as reasonably a chievable to obtain optimal diagnostic quality images. DICOM format image data is available electro nically for review and comparison. FINDINGS: There is large area of infarction involving the left MCA territory including the frontal tempora l and parietal lobes without any significant hemorrhage with extension into the basal ganglia. There are areas of increased density involving the baum-white junction on the left side probably due to sig nificant infarction lucency and/or laminar necrosis and hemorrhage is not suspected at this time. The re is mild mass effect on the left lateral ventricle. CONCLUSION: Involving left MCA stroke with mild mass effect and no definite hemorrhage. Sherron Lutz MD on October 24, 2017 at 5:00 Board Certified Radiologist. This report was verified electronically.
[2017-10-24] MEDS: RESP: ALBUTEROL 2.5 MG/IPRATROPIUM 0.5 MG NEB (SCH) NEB ×4 (05:33→20:11)
--- NOTE | 2017-10-24 09:20 | HHI.CCPN ---
Subjective Remarks/Hospital Course 10/21: 72-year-old female who recently presented to hospital on October 17, 2017 because sometime in the morning, her found her on the couch almost motionless, slouching in a reclining position. He attempted to stimulator but she only mild response. It was indicated that time that she was moving both her legs but did not notice any movement in her arms. The patient was unable to communicate and no coherent speech, was unable to follow commands. The last time that she is notably normal was the night prior to her going to bed. She had been treating herself for a head cold for approximately a week prior. She was seen in urgent care the day before coming to the hospital and prescribed some kind of antibiotic. As indicated that her blood glucoses were 400 at the urgent care center. Ambulance was called and the patient was brought to the emergency department for evaluation. Patient was not a candidate for TPA at that time due to unknown time frame of onset of symptoms. Patient had workup done in found to have significant hypertension, CT scan did show increased density involving the left MCA as compared to right which is concerning for acute thrombosis. Patient was admitted to the hospital for further evaluation and management. Patient had MRI, MRA performed which did show very large evolving left MCA CVA. Patient clinical condition did not improve, patient was still unable to communicate, unable to open eyes, pupils remained round and reactive to light. Patient was doing well and today on examination she actually hollowed commanded by gripping my hand with her left hand. Patient had been on Cardene and blood pressure medication has been adjusted to maintain systolic blood pressure 140-160. Nursing staff notified me that the patient had acute onset of bradycardia with heart rate in the 30s. At that time I notified Dr. Barton and stat CT was performed. CT did indicate significant worsening of the stroke with hemorrhagic conversion, midline shift. Patient was emergently intubated for airway support. Started hyperventilation to maintain End tidal CO2 30-36, 25 g mannitol IV given, head of bed raised at 45. Patient started on 2% saline solution with monitoring sodium every 6 hours. Stat consultation to neurosurgery was performed. I personally discussed the case with Amy, the PA that works with Dr. Tello. I discussed his case will surveillance manager for Dr. Barton, Dr. Thompson. Stat transfer to the [facility] hospital was requested. 10/22: Remains sedated, orally intubated on mechanical ventilation. Noted to have right pneumothorax on a.m. chest x-ray today for with right pigtail catheter placed by myself following which there was transient airleak was stopped within a minute of chest tube placement. On 2% saline which was held this morning and remains on mannitol. 10/23: No improvement in neurological function. Devastating defect on CT. ICP controlled at 7-8. Tapering off vasopressors. 10/24: Large completed stroke dominant hemisphere. Kiester removed as ICP was well controlled. Continue EtCO2 monitoring. I have discussed prognosis in detail with her and son. They confirm DNR status and are waiting for other family to arrive. Objective Vital Signs Date Time Temp Pulse Resp B/P (MAP) Pulse Ox O2 Delivery O2 Flow Rate FiO2 10/24/17 06:00 96 10/24/17 05:33 98 30 10/24/17 04:00 98.3 18 144/69 (94) 10/21/17 08:20 Nasal Cannula 2.50 Intake and Output 10/24/17 10/24/17 10/25/17 08:00 16:00 00:00 Intake Total 698 ml Balance 698 ml Result Diagram: 10/24/17 0400 10/24/17 0235 Other Results Microbiology Date/Time Source Procedure Growth Status 10/21/17 18:00 Nasal Washing Influenza Types A,B Antigen (MARINA) - Final NEGATIVE FOR FLU A AND B ANTIGEN.... Complete 10/21/17 13:30 Sputum Endotracheal Gram Stain - Final Complete 10/21/17 13:30 Sputum Endotracheal Sputum Culture - Final HEAVY GROWTH NORMAL RESPIRATORY ROJAS Complete Imaging Last Impressions Chest X-Ray 10/21/17 1339 Signed Impressions: Service Date/Time: Saturday, October 21, 2017 13:43 - CONCLUSION: Lines and tubes as detailed above. Clear lungs. Lei Cast Jr., MD Head CT 10/21/17 0000 Signed Impressions: Service Date/Time: Saturday, October 21, 2017 12:37 - CONCLUSION: 1. 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 Lei Cast Jr., MD Abdomen X-Ray 10/18/17 0000 Signed Impressions: Service Date/Time: Wednesday, October 18, 2017 17:20 - CONCLUSION: Gastric tube tip and side-port project within the stomach. Lei Kerr MD Neck Magnetic Resonance Angiography 10/17/17933 Signed Impressions: Service Date/Time: Tuesday, October 17, 2017 11:17 - CONCLUSION: Mild posterior soft plaque in left carotid bulb non-stenotic. Slit like, pinch stenosis at the origin of the right internal carotid artery. Poor visualization origin of the dominant left vertebral artery . Bilateral internal carotids in the siphon are somewhat irregular and poorly visualized however intracranially there is absence of flow in the left middle cerebral artery. Raj Renioso MD Head Magnetic Resonance Angiography 10/17/17933 Signed Impressions: Service Date/Time: Tuesday, October 17, 2017 11:17 - CONCLUSION: Complete occlusion of the left MCA corresponding with the hyperdense left MCA seen on comparison CT. Mary Jane Caballero MD Brain MRI 10/17/17933 Signed Impressions: Service Date/Time: Tuesday, October 17, 2017 11:17 - CONCLUSION: Acute left MCA stroke Raj Reinoso MD Objective Remarks GENERAL: Well-developed, well-nourished. HEENT: Head is normocephalic without any lesions or masses noted. Eyes: Conjunctivae were clear. NECK: Supple without any masses. Trachea midline no deviation. Orally intubated. CARDIAC: Regular rhythm, regular rate. S1/S2 are heard. No murmurs gallops or rubs. No JVD. LUNGS: Clear to auscultation bilaterally. No wheeze, rhonchi or rales. Good bilateral expansion. ABDOMEN: Soft, nontender. Nondistended. Bowel sounds active. No guarding. EXTREMITIES: No edema, pulses are equal bilaterally. No cyanosis or clubbing. Well perfused. NEUROLOGY: Orally intubated on mechanical ventilation. Left pupil dilated. Moves left upper and lower extremity spontaneously. Right hemiplegia. No eye opening. A/P Problem List: (1) Acute CVA (cerebrovascular accident) ICD Code: I63.9 - Cerebral infarction, unspecified Status: Acute (2) Major neurological deficit ICD Code: R29.818 - Other symptoms and signs involving the nervous system Status: Acute (3) Aphasia due to acute stroke ICD Code: I63.9 - Cerebral infarction, unspecified; R47.01 - Aphasia Status: Acute (4) Right hemiplegia ICD Code: G81.91 - Hemiplegia, unspecified affecting right dominant side Status: Acute (5) Encephalopathy ICD Code: G93.40 - Encephalopathy, unspecified Status: Acute (6) Leukocytosis ICD Code: D72.829 - Elevated white blood cell count, unspecified (7) Hypertension ICD Code: I10 - Essential (primary) hypertension (8) Hyperlipidemia ICD Code: E78.5 - Hyperlipidemia, unspecified (9) Diabetes ICD Code: E11.9 - Type 2 diabetes mellitus without complications Status: Chronic Assessment and Plan NEUROLOGY Acute left MCA territory ischemic CVA secondary to occluded left MCA with significant cerebral edema and mass effect with minimal hemorrhagic conversion Mrkt-cr-xjtfa midline shift 4 mm Right hemiplegia Aphasia Encephalopathy Continue neurochecks per ICU protocol CT scan 10/21 shows hemorrhagic conversion of left MCA territory infarction now with 4 mm of ujyu-qr-igbnp midline shift Keep head of bed 45 2% saline to keep sodium 150 - 155 25 g mannitol IV Q6hrly to be stopped later today Monitor sodium/ osmolality every 6 hours Neurosurgical consultation has been requested and patient evaluated by Dr. Tello. Kiester placed for ICP monitoring. ICP 5 Propofol/fentanyl for sedation to keep RASS -2 Neurology following the patient PT/OT is following the patient F/U CT shows large fixed defect left MCA distribution. PULMONOLOGY Acute respiratory failure on mechanical ventilation COPD Right pneumothorax status post pigtail catheter placement 10/22 Continue mechanical ventilation Ventilator bundle PRVC 18/500/1.0/5+/50% Monitor end-tidal CO2 and adjust respirations the to keep end-tidal CO2 around 35 No weaning trials still decrease of cerebral edema and midline shift Right pigtail catheter placed for pneumothorax with resolution on 10/22 CARDIOLOGY Hypertension, controlled Hyperlipidemia Acute bradycardia Monitor blood pressure and keep map greater than 65 Dopamine as needed to keep heart rate greater than 50 Levophed for pressor support to keep MAP greater than 65. Echocardiogram does indicate ejection fraction 60-65% with hyperdynamic systole Cardene drip to keep systolic blood pressure less than 180 Hold Atenolol 25 mg twice daily/losartan 100 mg daily/verapamil 120 mg twice daily in view of hypotension LDL 73, patient started on Lipitor 40 mg daily GASTROENTEROLOGY Dysphagia NG tube is in place at this time Tube feeding at goal of Jevity 1.5 with goal of 45 mL/hour, dietary following GI protection with Pepcid RENAL Monitor renal function ICU electrolyte replacement protocol 2% saline held as sodium greater than 155, will resume for sodium less than 150 INFECTIOUS DISEASE Leukocytosis No acute signs of infection at this time Continue monitor for infection Obtain blood cultures, sputum culture, influenza testing ENDOCRINOLOGY Diabetes Accu-Cheks with sliding scale insulin Levemir 10 units every 12 hours Hemoglobin A1c 7.8 TSH 3.11 HEMATOLOGY Hemoglobin has remained stable, coagulation factors are normal, platelet count is normal Continue monitor and address as needed PROPHYLAXIS GI protection with Pepcid DVT prevention with Lovenox and sequential compression devices LINES Right subclavian central line placed on 10/21 CODE STATUS Alternate CODE STATUS with intubation only. Being followed by palliative care team. Overall impression: Patient is critically ill after a large acute left MCA defect. Neurologically unstable. Discussed with patient's on 10/24 again and he tells me that patient would not want tracheostomy or PEG tube placement or neurosurgical intervention. Family is deciding about care options; favoring withdrawal of artificial support. Critical Care 45 mins Problem Qualifiers (1) Diabetes: Shaw Boykin MD Oct 24, 2017 09:20
[2017-10-24] MEDS: DOCUSATE SODIUM 100 MG CAP PO SCH ×2 (09:22→22:26)
[2017-10-24] MEDS: CHLORHEXIDINE 0.12% (ORAL KIT) 15 ML CUP MT SCH ×2 (09:22→20:43)
[2017-10-24] MEDS: FAMOTIDINE 20 MG/2 ML VIAL IV PUSH SCH ×2 (09:22→22:25)
[2017-10-24] MEDS: INSULIN DETEMIR 100 UNITS/ML VIAL SQ SCH ×2 (09:22→22:27)
[2017-10-24] MEDS: INSULIN NovoLIN REGULAR SUPPLEMENTAL SCALE SQ SCH ×4 (09:23→21:00)
[2017-10-24] MEDS: SODIUM CHLORIDE 0.9% FLUSH 10 ML FLUSH IV FLUSH SCH ×2 (09:23→21:00)
--- NOTE | 2017-10-24 12:03 | HHI.NSPN ---
History Chief Complaint: not obtainable Interval History Left MCA stroke, unchanged System Review Comments not obtainable Exam Results Vital Signs Date Time Temp Pulse Resp B/P (MAP) Pulse Ox O2 Delivery O2 Flow Rate FiO2 10/24/17 10:24 100 30 10/24/17 10:24 Ventilator 10/24/17 10:00 92 10/24/17 08:00 99.3 18 125/60 (81) 10/21/17 08:20 2.50 Intake and Output 10/24/17 10/24/17 10/25/17 08:00 16:00 00:00 Intake Total 698 ml Balance 698 ml Physical Examination Intubated, on respirator, lethargic to obtunded Right hemiplegia Does not follow commands Lab, Micro, Other Results CT reviewed. Evidence of large ischemic MCA stroke, left Medical Decision Making Impression and Plan Left ischemic MCA stroke Continue support Aime Bliss MD Oct 24, 2017 12:03
[2017-10-24] MEDS: fentaNYL DRIP 250 ML IV PRN (18:48)
--- NOTE | 2017-10-24 19:42 | HHI.PR ---
Review/Management Diagnosis large left MCA stroke Diagnosis/Plan: Subjective Subjective Comments No acute events reported Active Medications Current Medications Medications (Trade) Dose Ordered Sig/Jeyson Route Start Time Stop Time Status Last Admin (NS Flush) 2 ml BID IV FLUSH 10/17/17 21:00 10/24/17 09:23 (NS Flush) 2 ml UNSCH PRN IV FLUSH 10/17/17 09:45 (Lipitor) 40 mg HS PO 10/18/17 21:00 10/23/17 21:08 Miscellaneous Information Patient in critical care unit? Ass... Q361D .XX 10/17/17 11:00 10/17/17 11:00 (Zofran Inj) 4 mg Q6HR PRN IV PUSH 10/18/17 00:45 10/18/17 00:48 (Compazine Inj) 5 mg Q4H PRN IV PUSH 10/18/17 00:45 (Isoptin) 120 mg BID PO 10/19/17 21:00 Future Hold 10/21/17 10:30 (Lovenox Inj) 30 mg Q24H SQ 10/19/17 15:00 Future Hold 10/20/17 15:39 (Colace) 100 mg BID PO 10/19/17 15:00 10/24/17 09:22 (Cozaar) 100 mg DAILY PO 10/19/17 15:00 Future Hold 10/21/17 10:30 (NovoLIN R SUPPLEMENTAL SCALE) 1 ACHS SLIDING SCALE SQ 10/19/17 17:00 10/24/17 17:48 (Aspirin Supp) 300 mg DAILY RECTAL 10/21/17 09:00 Future Hold Dopamine HCl/ Dextrose 500 ml @ 7.121 mls/ hr TITRATE PRN IV 10/21/17 12:15 (Brethine Inj) 1 mg UNSCH PRN SQ 10/21/17 12:15 (Pepcid Inj) 20 mg Q12HR IV PUSH 10/21/17 21:00 10/24/17 09:22 (Versed Inj) 2 mg Q1H PRN IV PUSH 10/21/17 13:30 (Peridex 0.12% Liq) 15 ml BID@08,20 MT 10/21/17 20:00 10/24/17 09:22 Propofol 100 ml @ 1.899 mls/ hr TITRATE PRN IV 10/21/17 13:30 10/23/17 00:45 Potassium Chloride 100 ml @ 50 mls/hr Q2H PRN IV 10/21/17 13:30 Potassium Chloride 100 ml @ 50 mls/hr Q2H PRN IV 10/21/17 13:30 (K-Lyte Cl Eff) 50 meq UNSCH PRN PO 10/21/17 13:30 Potassium Chloride 100 ml @ 25 mls/hr UNSCH PRN IV 10/21/17 13:30 Potassium Chloride 100 ml @ 50 mls/hr Q2H PRN IV 10/21/17 13:30 Magnesium Sulfate 4 gm/Sodium Chloride 100 ml @ 50 mls/hr UNSCH PRN IV 10/21/17 13:30 (Mag-Ox) 800 mg UNSCH PRN PO 10/21/17 13:30 Magnesium Sulfate 2 gm/Sodium Chloride 100 ml @ 50 mls/hr UNSCH PRN IV 10/21/17 13:30 (K-Phos) 2,000 mg Q4H PRN PO 10/21/17 13:30 Sodium Phosphate 30 mmol/Sodium Chloride 250 ml @ 42 mls/hr UNSCH PRN IV 10/21/17 13:30 (K-Phos) 2,000 mg UNSCH PRN PO/TUBE 10/21/17 13:30 Potassium Phosphate 30 mmol/ Sodium Chloride 260 ml @ 42 mls/hr UNSCH PRN IV 10/21/17 13:30 Fentanyl Citrate 250 ml @ 5 mls/hr TITRATE PRN IV 10/21/17 13:45 10/24/17 18:48 Sodium Chloride 188 meq/Sodium Chloride 1,047 ml @ 10 mls/hr Q24H IV 10/21/17 16:00 10/22/17 09:16 Norepinephrine Bitartrate 4 mg/ Sodium Chloride 250 ml @ 7.5 mls/hr TITRATE PRN IV 10/21/17 17:00 10/23/17 06:12 Nicardipine HCl 25 mg/Sodium Chloride 260 ml @ 52 mls/hr TITRATE PRN IV 10/21/17 17:00 (Duoneb Neb) 1 ampule Q6HR NEB NEB 10/22/17 16:00 10/24/17 10:23 (Duoneb Neb) 1 ampule Q2HR NEB PRN NEB 10/22/17 12:00 10/22/17 11:53 (Levemir Inj) 10 units Q12HR SQ 10/22/17 21:00 10/24/17 09:22 (Trandate Inj) 10 mg Q1HR PRN IV PUSH 10/23/17 16:30 10/23/17 16:30 Allergies Allergies Coded Allergies Penicillins (Verified Allergy, Unknown, Unknown, 10/17/17) Exam I&O / VS 10/24/17 10/24/17 10/25/17 15:00 23:00 07:00 Intake Total 1220 ml Output Total 525 ml Balance 695 ml IV Total 250 ml Tube Feeding 470 ml Other 500 ml Output Urine Total 525 ml # Bowel Movements 0 Vital Signs Date Time Temp Pulse Resp B/P (MAP) Pulse Ox O2 Delivery O2 Flow Rate FiO2 10/24/17 18:00 102 10/24/17 16:00 93 10/24/17 16:00 99.6 94 18 120/59 (79) 100 10/24/17 16:00 30 10/24/17 14:00 92 10/24/17 12:32 100 30 10/24/17 12:00 102 10/24/17 12:00 30 10/24/17 12:00 98.9 102 18 169/74 (105) 100 10/24/17 10:24 100 30 10/24/17 10:24 100 Ventilator 30 10/24/17 10:17 100 30 10/24/17 10:00 92 10/24/17 08:00 30 10/24/17 08:00 94 10/24/17 08:00 99.3 94 18 125/60 (81) 100 10/24/17 06:00 96 10/24/17 05:33 98 30 10/24/17 04:35 100 100 10/24/17 04:00 96 10/24/17 04:00 98.3 96 18 144/69 (94) 97 10/24/17 04:00 30 10/24/17 02:04 99 30 10/24/17 02:04 98 30 10/24/17 02:00 96 10/24/17 00:00 30 10/24/17 00:00 104 10/24/17 00:00 99.0 104 18 127/60 (82) 99 10/23/17 22:34 100 30 10/23/17 22:00 101 10/23/17 20:00 100.6 102 18 120/58 (78) 100 10/23/17 20:00 30 10/23/17 20:00 102 Exam Comments lethargic but does respond to sternal rub but does not follow commands CN perrl, left gaze MOTOR---0/5 RUE and RLE. Moves LUE and LLE with normal strength Objective Radiology Results CT brain---large left MCA stroke with mass effect, no hemorrhage Micro and Labs Laboratory Tests Test 10/23/17 21:20 10/24/17 02:35 10/24/17 04:00 10/24/17 10:44 Sodium Level 160 157 155 Serum Osmolality 343 339 334 Blood Urea Nitrogen 29 Creatinine 0.81 Random Glucose 191 Calcium Level 8.6 Phosphorus Level 2.2 Magnesium Level 2.2 Potassium Level 4.0 Chloride Level 124 Carbon Dioxide Level 29.5 Anion Gap 4 Estimat Glomerular Filtration Rate 70 White Blood Count 12.8 Red Blood Count 3.18 Hemoglobin 9.9 Hematocrit 29.8 Mean Corpuscular Volume 93.7 Mean Corpuscular Hemoglobin 31.0 Mean Corpuscular Hemoglobin Concent 33.1 Red Cell Distribution Width 13.3 Platelet Count 173 Mean Platelet Volume 9.2 Test 10/24/17 17:10 Sodium Level 155 Serum Osmolality 331 Date/Time Source Procedure Growth Status 10/21/17 19:40 Blood Peripheral Aerobic Blood Culture - Preliminary NO GROWTH IN 3 DAYS Resulted 10/21/17 19:40 Blood Peripheral Anaerobic Blood Culture - Preliminary NO GROWTH IN 3 DAYS Resulted 10/21/17 18:00 Nasal Washing Influenza Types A,B Antigen (MARINA) - Final NEGATIVE FOR FLU A AND B ANTIGEN.... Complete Cedric Cano MD PhD Oct 24, 2017 19:42
[2017-10-24] MEDS: ATORVASTATIN 40 MG TAB PO SCH (22:26)
[2017-10-25] VITALS (17 sets, daily range): BP systolic 125–170; BP diastolic 58–79; PULSE 89–114; RESP 18; TEMP 98.9–100.7; O2SAT 18–100
[2017-10-25] MEDS: SODIUM CHLORIDE 23.4% INJ 188 MEQ in SODIUM CHLOR 0.9% 1000 ML INJ 1,000 ML IV SCH (02:54)
[2017-10-25] MEDS: RESP: ALBUTEROL 2.5 MG/IPRATROPIUM 0.5 MG NEB (SCH) NEB ×4 (03:42→20:25)
--- NOTE | 2017-10-25 08:43 | HHI.CCPN ---
Subjective Remarks/Hospital Course 10/21: 72-year-old female who recently presented to hospital on October 17, 2017 because sometime in the morning, her found her on the couch almost motionless, slouching in a reclining position. He attempted to stimulator but she only mild response. It was indicated that time that she was moving both her legs but did not notice any movement in her arms. The patient was unable to communicate and no coherent speech, was unable to follow commands. The last time that she is notably normal was the night prior to her going to bed. She had been treating herself for a head cold for approximately a week prior. She was seen in urgent care the day before coming to the hospital and prescribed some kind of antibiotic. As indicated that her blood glucoses were 400 at the urgent care center. Ambulance was called and the patient was brought to the emergency department for evaluation. Patient was not a candidate for TPA at that time due to unknown time frame of onset of symptoms. Patient had workup done in found to have significant hypertension, CT scan did show increased density involving the left MCA as compared to right which is concerning for acute thrombosis. Patient was admitted to the hospital for further evaluation and management. Patient had MRI, MRA performed which did show very large evolving left MCA CVA. Patient clinical condition did not improve, patient was still unable to communicate, unable to open eyes, pupils remained round and reactive to light. Patient was doing well and today on examination she actually hollowed commanded by gripping my hand with her left hand. Patient had been on Cardene and blood pressure medication has been adjusted to maintain systolic blood pressure 140-160. Nursing staff notified me that the patient had acute onset of bradycardia with heart rate in the 30s. At that time I notified Dr. Barton and stat CT was performed. CT did indicate significant worsening of the stroke with hemorrhagic conversion, midline shift. Patient was emergently intubated for airway support. Started hyperventilation to maintain End tidal CO2 30-36, 25 g mannitol IV given, head of bed raised at 45. Patient started on 2% saline solution with monitoring sodium every 6 hours. Stat consultation to neurosurgery was performed. I personally discussed the case with Amy, the PA that works with Dr. Tello. I discussed his case will multimedia instructional designer for Dr. Barton, Dr. Thompson. Stat transfer to the [facility] hospital was requested. 10/22: Remains sedated, orally intubated on mechanical ventilation. Noted to have right pneumothorax on a.m. chest x-ray today for with right pigtail catheter placed by myself following which there was transient airleak was stopped within a minute of chest tube placement. On 2% saline which was held this morning and remains on mannitol. 10/23: No improvement in neurological function. Devastating defect on CT. ICP controlled at 7-8. Tapering off vasopressors. 10/24: Large completed stroke dominant hemisphere. [place] removed as ICP was well controlled. Continue EtCO2 monitoring. I have discussed prognosis in detail with her and son. They confirm DNR status and are waiting for other family to arrive. 10/25: No change or improvement. Objective Vital Signs Date Time Temp Pulse Resp B/P (MAP) Pulse Ox O2 Delivery O2 Flow Rate FiO2 10/25/17 06:00 95 10/25/17 04:17 98 30 10/25/17 04:00 99.6 18 147/67 (93) 10/24/17 10:24 Ventilator 10/21/17 08:20 2.50 Intake and Output 10/25/17 10/25/17 10/26/17 08:00 16:00 00:00 Intake Total 848 ml Output Total 450 ml Balance 398 ml Result Diagram: 10/24/17 0400 10/24/17 1710 Imaging Last Impressions Chest X-Ray 10/21/17 1339 Signed Impressions: Service Date/Time: Saturday, October 21, 2017 13:43 - CONCLUSION: Lines and tubes as detailed above. Clear lungs. Lei Cast Jr., MD Head CT 10/21/17 0000 Signed Impressions: Service Date/Time: Saturday, October 21, 2017 12:37 - CONCLUSION: 1. 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 Lei Cast Jr., MD Abdomen X-Ray 10/18/17 0000 Signed Impressions: Service Date/Time: Wednesday, October 18, 2017 17:20 - CONCLUSION: Gastric tube tip and side-port project within the stomach. Lei Kerr MD Neck Magnetic Resonance Angiography 10/17/17 0934 Signed Impressions: Service Date/Time: Tuesday, October 17, 2017 11:17 - CONCLUSION: Mild posterior soft plaque in left carotid bulb non-stenotic. Slit like, pinch stenosis at the origin of the right internal carotid artery. Poor visualization origin of the dominant left vertebral artery . Bilateral internal carotids in the siphon are somewhat irregular and poorly visualized however intracranially there is absence of flow in the left middle cerebral artery. Raj Reinoso MD Head Magnetic Resonance Angiography 10/17/1734 Signed Impressions: Service Date/Time: Tuesday, October 17, 2017 11:17 - CONCLUSION: Complete occlusion of the left MCA corresponding with the hyperdense left MCA seen on comparison CT. Mary Jane Caballero MD Brain MRI 10/17/17933 Signed Impressions: Service Date/Time: Tuesday, October 17, 2017 11:17 - CONCLUSION: Acute left MCA stroke Raj Reinoso MD Objective Remarks GENERAL: Well-developed, well-nourished. HEENT: Head is normocephalic without any lesions or masses noted. Eyes: Conjunctivae were clear. NECK: Supple without any masses. Trachea midline no deviation. Orally intubated. CARDIAC: Regular rhythm, regular rate. S1/S2 are heard. No murmurs gallops or rubs. No JVD. LUNGS: Clear to auscultation bilaterally. No wheeze, rhonchi or rales. Good bilateral expansion. ABDOMEN: Soft, nontender. Nondistended. Bowel sounds active. No guarding. EXTREMITIES: No edema, pulses are equal bilaterally. No cyanosis or clubbing. Well perfused. NEUROLOGY: Orally intubated on mechanical ventilation. Left pupil dilated. Moves left upper and lower extremity spontaneously. Right hemiplegia. No eye opening. A/P Problem List: (1) Acute CVA (cerebrovascular accident) ICD Code: I63.9 - Cerebral infarction, unspecified Status: Acute (2) Major neurological deficit ICD Code: R29.818 - Other symptoms and signs involving the nervous system Status: Acute (3) Aphasia due to acute stroke ICD Code: I63.9 - Cerebral infarction, unspecified; R47.01 - Aphasia Status: Acute (4) Right hemiplegia ICD Code: G81.91 - Hemiplegia, unspecified affecting right dominant side Status: Acute (5) Encephalopathy ICD Code: G93.40 - Encephalopathy, unspecified Status: Acute (6) Leukocytosis ICD Code: D72.829 - Elevated white blood cell count, unspecified (7) Hypertension ICD Code: I10 - Essential (primary) hypertension (8) Hyperlipidemia ICD Code: E78.5 - Hyperlipidemia, unspecified (9) Diabetes ICD Code: E11.9 - Type 2 diabetes mellitus without complications Status: Chronic Assessment and Plan NEUROLOGY Acute left MCA territory ischemic CVA secondary to occluded left MCA with significant cerebral edema and mass effect with minimal hemorrhagic conversion [id number] midline shift 4 mm Right hemiplegia Aphasia Encephalopathy Continue neurochecks per ICU protocol CT scan 10/21 shows hemorrhagic conversion of left MCA territory infarction now with 4 mm of [id number] midline shift Keep head of bed 45 2% saline to keep sodium 150 - 155 25 g mannitol IV Q6hrly to be stopped later today Monitor sodium/ osmolality every 6 hours Neurosurgical consultation has been requested and patient evaluated by Dr. Tello. [place] placed for ICP monitoring. ICP 5 Propofol/fentanyl for sedation to keep RASS -2 Neurology following the patient PT/OT is following the patient F/U CT shows large fixed defect left MCA distribution. PULMONOLOGY Acute respiratory failure on mechanical ventilation COPD Right pneumothorax status post pigtail catheter placement 10/22 Continue mechanical ventilation Ventilator bundle PRVC 18/500/1.0/5+/50% Monitor end-tidal CO2 and adjust respirations the to keep end-tidal CO2 around 35 No weaning trials still decrease of cerebral edema and midline shift Right pigtail catheter placed for pneumothorax with resolution on 10/22 CARDIOLOGY Hypertension, controlled Hyperlipidemia Acute bradycardia Monitor blood pressure and keep map greater than 65 Dopamine as needed to keep heart rate greater than 50 Levophed for pressor support to keep MAP greater than 65. Echocardiogram does indicate ejection fraction 60-65% with hyperdynamic systole Cardene drip to keep systolic blood pressure less than 180 Hold Atenolol 25 mg twice daily/losartan 100 mg daily/verapamil 120 mg twice daily in view of hypotension LDL 73, patient started on Lipitor 40 mg daily GASTROENTEROLOGY Dysphagia NG tube is in place at this time Tube feeding at goal of Jevity 1.5 with goal of 45 mL/hour, dietary following GI protection with Pepcid RENAL Monitor renal function ICU electrolyte replacement protocol 2% saline held as sodium greater than 155, will resume for sodium less than 150 INFECTIOUS DISEASE Leukocytosis No acute signs of infection at this time Continue monitor for infection Obtain blood cultures, sputum culture, influenza testing ENDOCRINOLOGY Diabetes Accu-Cheks with sliding scale insulin Levemir 10 units every 12 hours Hemoglobin A1c 7.8 TSH 3.11 HEMATOLOGY Hemoglobin has remained stable, coagulation factors are normal, platelet count is normal Continue monitor and address as needed PROPHYLAXIS GI protection with Pepcid DVT prevention with Lovenox and sequential compression devices LINES Right subclavian central line placed on 10/21 CODE STATUS Alternate CODE STATUS with intubation only. Being followed by palliative care team. Overall impression: Large acute left MCA defect. Neurologically unstable. Discussed with patient's on 10/24 again and he tells me that patient would not want tracheostomy or PEG tube placement or neurosurgical intervention. Family is deciding about care options; favoring withdrawal of artificial support. Problem Qualifiers (1) Diabetes: Shaw Boykin MD Oct 25, 2017 08:42
[2017-10-25] MEDS: DOCUSATE SODIUM 100 MG CAP PO SCH ×2 (09:00→22:01)
[2017-10-25] MEDS: SODIUM CHLORIDE 0.9% FLUSH 10 ML FLUSH IV FLUSH SCH ×2 (09:00→21:59)
[2017-10-25] MEDS: CHLORHEXIDINE 0.12% (ORAL KIT) 15 ML CUP MT SCH ×2 (09:33→20:11)
[2017-10-25] MEDS: FAMOTIDINE 20 MG/2 ML VIAL IV PUSH SCH ×2 (09:34→21:59)
[2017-10-25] MEDS: INSULIN NovoLIN REGULAR SUPPLEMENTAL SCALE SQ SCH ×4 (09:34→22:00)
[2017-10-25] MEDS: INSULIN DETEMIR 100 UNITS/ML VIAL SQ SCH ×2 (09:35→22:00)
--- NOTE | 2017-10-25 11:17 | HHI.NSPN ---
History Chief Complaint: not obtainable Interval History Left MCA stroke, family considering palliative care Exam Results Vital Signs Date Time Temp Pulse Resp B/P (MAP) Pulse Ox O2 Delivery O2 Flow Rate FiO2 10/25/17 10:00 100 10/25/17 09:46 100 Ventilator 30 10/25/17 08:00 98.9 18 125/58 (80) 10/21/17 08:20 2.50 Intake and Output 10/25/17 10/25/17 10/26/17 08:00 16:00 00:00 Intake Total 848 ml Output Total 450 ml Balance 398 ml Physical Examination Intubated, on respirator, appears more awake today and attempts to follow commands Right hemiplegia Medical Decision Making Impression and Plan Left ischemic MCA stroke. Is stable and appears somewhat improved Continue support Aime Bliss MD Oct 25, 2017 11:17
[2017-10-25] MEDS: fentaNYL DRIP 250 ML IV PRN (12:13)
--- NOTE | 2017-10-25 12:31 | HHI.PR ---
Review/Management Diagnosis large left MCA stroke--exam slightly improved today Diagnosis/Plan: Subjective Subjective Comments No acute events reported Active Medications Current Medications Medications (Trade) Dose Ordered Sig/Jeyson Route Start Time Stop Time Status Last Admin (NS Flush) 2 ml BID IV FLUSH 10/17/17 21:00 10/24/17 21:00 (NS Flush) 2 ml UNSCH PRN IV FLUSH 10/17/17 09:45 (Lipitor) 40 mg HS PO 10/18/17 21:00 10/24/17 22:26 Miscellaneous Information Patient in critical care unit? Ass... Q361D .XX 10/17/17 11:00 10/17/17 11:00 (Zofran Inj) 4 mg Q6HR PRN IV PUSH 10/18/17 00:45 10/18/17 00:48 (Compazine Inj) 5 mg Q4H PRN IV PUSH 10/18/17 00:45 (Isoptin) 120 mg BID PO 10/19/17 21:00 Future Hold 10/21/17 10:30 (Lovenox Inj) 30 mg Q24H SQ 10/19/17 15:00 Future Hold 10/20/17 15:39 (Colace) 100 mg BID PO 10/19/17 15:00 10/25/17 09:00 (Cozaar) 100 mg DAILY PO 10/19/17 15:00 Future Hold 10/21/17 10:30 (NovoLIN R SUPPLEMENTAL SCALE) 1 ACHS SLIDING SCALE SQ 10/19/17 17:00 10/25/17 11:24 (Aspirin Supp) 300 mg DAILY RECTAL 10/21/17 09:00 Future Hold Dopamine HCl/ Dextrose 500 ml @ 7.121 mls/ hr TITRATE PRN IV 10/21/17 12:15 (Brethine Inj) 1 mg UNSCH PRN SQ 10/21/17 12:15 (Pepcid Inj) 20 mg Q12HR IV PUSH 10/21/17 21:00 10/25/17 09:34 (Versed Inj) 2 mg Q1H PRN IV PUSH 10/21/17 13:30 (Peridex 0.12% Liq) 15 ml BID@08,20 MT 10/21/17 20:00 10/25/17 09:33 Propofol 100 ml @ 1.899 mls/ hr TITRATE PRN IV 10/21/17 13:30 10/23/17 00:45 Potassium Chloride 100 ml @ 50 mls/hr Q2H PRN IV 10/21/17 13:30 Potassium Chloride 100 ml @ 50 mls/hr Q2H PRN IV 10/21/17 13:30 (K-Lyte Cl Eff) 50 meq UNSCH PRN PO 10/21/17 13:30 Potassium Chloride 100 ml @ 25 mls/hr UNSCH PRN IV 10/21/17 13:30 Potassium Chloride 100 ml @ 50 mls/hr Q2H PRN IV 10/21/17 13:30 Magnesium Sulfate 4 gm/Sodium Chloride 100 ml @ 50 mls/hr UNSCH PRN IV 10/21/17 13:30 (Mag-Ox) 800 mg UNSCH PRN PO 10/21/17 13:30 Magnesium Sulfate 2 gm/Sodium Chloride 100 ml @ 50 mls/hr UNSCH PRN IV 10/21/17 13:30 (K-Phos) 2,000 mg Q4H PRN PO 10/21/17 13:30 Sodium Phosphate 30 mmol/Sodium Chloride 250 ml @ 42 mls/hr UNSCH PRN IV 10/21/17 13:30 (K-Phos) 2,000 mg UNSCH PRN PO/TUBE 10/21/17 13:30 Potassium Phosphate 30 mmol/ Sodium Chloride 260 ml @ 42 mls/hr UNSCH PRN IV 10/21/17 13:30 Fentanyl Citrate 250 ml @ 5 mls/hr TITRATE PRN IV 10/21/17 13:45 10/25/17 12:13 Sodium Chloride 188 meq/Sodium Chloride 1,047 ml @ 10 mls/hr Q24H IV 10/21/17 16:00 10/22/17 09:16 Norepinephrine Bitartrate 4 mg/ Sodium Chloride 250 ml @ 7.5 mls/hr TITRATE PRN IV 10/21/17 17:00 10/23/17 06:12 Nicardipine HCl 25 mg/Sodium Chloride 260 ml @ 52 mls/hr TITRATE PRN IV 10/21/17 17:00 (Duoneb Neb) 1 ampule Q6HR NEB NEB 10/22/17 16:00 10/25/17 09:45 (Duoneb Neb) 1 ampule Q2HR NEB PRN NEB 10/22/17 12:00 10/22/17 11:53 (Levemir Inj) 10 units Q12HR SQ 10/22/17 21:00 10/25/17 09:35 (Trandate Inj) 10 mg Q1HR PRN IV PUSH 10/23/17 16:30 10/23/17 16:30 Allergies Allergies Coded Allergies Penicillins (Verified Allergy, Unknown, Unknown, 10/17/17) Exam I&O / VS Vital Signs Date Time Temp Pulse Resp B/P (MAP) Pulse Ox O2 Delivery O2 Flow Rate FiO2 10/25/17 12:00 30 10/25/17 12:00 99.7 95 18 140/63 (88) 97 10/25/17 12:00 95 10/25/17 10:00 100 10/25/17 09:46 100 Ventilator 30 10/25/17 09:46 99 30 10/25/17 08:00 30 10/25/17 08:00 98.9 94 18 125/58 (80) 100 10/25/17 08:00 94 10/25/17 06:00 95 10/25/17 04:17 98 30 10/25/17 04:00 99.6 92 18 147/67 (93) 100 10/25/17 04:00 92 10/25/17 04:00 30 10/25/17 02:00 90 10/25/17 00:00 30 10/25/17 00:00 90 10/25/17 00:00 99.4 90 18 154/67 (96) 100 10/24/17 23:36 99 30 10/24/17 22:00 96 10/24/17 20:09 96 30 10/24/17 20:07 96 30 10/24/17 20:00 100.3 114 18 128/62 (84) 95 10/24/17 20:00 30 10/24/17 20:00 114 10/24/17 18:00 102 10/24/17 16:00 93 10/24/17 16:00 99.6 94 18 120/59 (79) 100 10/24/17 16:00 30 10/24/17 14:00 92 10/24/17 12:32 100 30 Exam Comments a little more responsive. opens eyes to voice, follow simple commands CN perrl, left gaze MOTOR---0/5 RUE and RLE. Moves LUE and LLE with normal strength Objective Micro and Labs Laboratory Tests Test 10/24/17 17:10 Sodium Level 155 Serum Osmolality 331 Date/Time Source Procedure Growth Status 10/21/17 19:40 Blood Peripheral Aerobic Blood Culture - Preliminary NO GROWTH IN 4 DAYS Resulted 10/21/17 19:40 Blood Peripheral Anaerobic Blood Culture - Preliminary NO GROWTH IN 4 DAYS Resulted 10/21/17 18:00 Nasal Washing Influenza Types A,B Antigen (MARINA) - Final NEGATIVE FOR FLU A AND B ANTIGEN.... Complete Cedric Cano MD PhD Oct 25, 2017 12:31
[2017-10-25] MEDS: ATORVASTATIN 40 MG TAB PO SCH (22:02)
[2017-10-26] VITALS (12 sets, daily range): BP systolic 125–152; BP diastolic 54–65; PULSE 90–155; RESP 18–19; TEMP 99.6–100.8; O2SAT 97–100
[2017-10-26] MEDS: SODIUM CHLORIDE 23.4% INJ 188 MEQ in SODIUM CHLOR 0.9% 1000 ML INJ 1,000 ML IV SCH (02:30)
[2017-10-26] MEDS: RESP: ALBUTEROL 2.5 MG/IPRATROPIUM 0.5 MG NEB (SCH) NEB ×2 (02:50→08:44)
[2017-10-26] MEDS: fentaNYL DRIP 250 ML IV PRN (04:11)
[2017-10-26] MEDS: INSULIN NovoLIN REGULAR SUPPLEMENTAL SCALE SQ SCH ×2 (08:00→12:00)
[2017-10-26] MEDS: CHLORHEXIDINE 0.12% (ORAL KIT) 15 ML CUP MT SCH (08:00)
[2017-10-26] MEDS: FAMOTIDINE 20 MG/2 ML VIAL IV PUSH SCH (08:58)
[2017-10-26] MEDS: SODIUM CHLORIDE 0.9% FLUSH 10 ML FLUSH IV FLUSH SCH (08:58)
[2017-10-26] MEDS: DOCUSATE SODIUM 100 MG CAP PO SCH (08:58)
[2017-10-26] MEDS: INSULIN DETEMIR 100 UNITS/ML VIAL SQ SCH (08:58)
[2017-10-26] MEDS ORDERED: HYOSCYAMINE 0.5 MG/ML AMP IV PUSH ONE (16:15)
[2017-10-26] MEDS ORDERED: fentaNYL DRIP 250 ML IV PRN (16:15)
[2017-10-26] MEDS ORDERED: LORazepam 2 MG/ML VIAL IV PUSH ONE ×2 (16:15→16:30)
[2017-10-26] MEDS ORDERED: HYOSCYAMINE 0.5 MG/ML AMP IV PUSH PRN (16:45)
[2017-10-26] MEDS ORDERED: FUROSEMIDE 20 MG/2 ML VIAL IV PUSH PRN (16:45)
[2017-10-26] MEDS ORDERED: BISACODYL 10 MG SUPP RECTAL PRN (16:45)
[2017-10-26] MEDS ORDERED: LORazepam 2 MG/ML VIAL IV PUSH PRN ×2 (16:45)
[2017-10-26] MEDS ORDERED: ACETAMINOPHEN 650 MG SUPP RECTAL PRN (16:45)
--- NOTE | 2017-10-26 16:46 | HHI.HCPN ---
Reason for visit a. To assist with evaluation and management of symptoms including: Encephalopathy, dyspnea and pain b. To assist medical decision maker(s) with: better understanding of current medical conditions; weighing benefits/burdens of medical treatment options; making medical treatment decisions. . (Soraya Silveira) Subjective/Interval History Mrs. Lake initially presented to [facility] ED in [place] on 10/17/2017 and was diagnosed with an acute left-sided MCA with subsequent hemorrhagic conversion and 4 mm inma-na-zelgd shift. She was transferred to the [facility] on 10/21/2017 and underwent brunilda hole with placement of ICP monitor by Dr. Tello which has since been removed as ICPs were well controlled. Follow-up visit for symptom management and clarification of medical treatment goals. Patient with large completed stroke of the dominant hemisphere remains sedated and intubated on mechanical ventilation. Sedated with fentanyl 175 g per hour. Off pressor support. Follow-up CT head on 10/24/17 showed a large area of infarction involving the left MCA territory including the frontal temporal and parietal lobes without any significant hemorrhage with extension into the basal ganglia. No improvement in neurological function. Family confirms DNR status. Palliative care met with the patient's family this afternoon after family arrived. Given the devastating defects noted on CT, the family wishes to compassionate withdrawal artificial life support as this is what she has indicated she would want in multiple previous conversations with her family. Anticipatory guidance provided. Family plans to say their goodbyes prior to withdrawal. Exhibits B&C has been signed and placed on the patient's chart. Orders for comfort medications have been placed in the computer. . Family/friend interactions See interval history above. . (Soraya Silveira) Advance Directives Living Will: Never completed Health Care Surrogate: Never completed Durable Power of Fruit Coordinator: Never completed (Soraya Silveira) Advance Directive Specifics Health Care Surrogate(s): Healthcare surrogate designation form has not been completed. . Documented care wishes: No significant advanced directives were completed previously. The patient's states his would not want to be kept alive on machines for a prolonged period of time, and the extended family agrees with that statement. Plan to allow the patient 7-10 days to see if there is any improvement. . Significant change in goals: Family desires compassionate withdrawal of artificial life support. . (Soraya Silveira) Objective Vital Signs Date Time Temp Pulse Resp B/P (MAP) Pulse Ox O2 Delivery O2 Flow Rate FiO2 10/26/17 16:00 102 10/26/17 16:00 99.6 102 18 134/59 (84) 100 10/26/17 16:00 30 10/26/17 14:00 93 10/26/17 12:00 99.8 90 18 135/59 (84) 100 10/26/17 12:00 100 30 10/26/17 12:00 90 10/26/17 12:00 30 10/26/17 10:00 90 10/26/17 08:44 99 30 10/26/17 08:00 106 10/26/17 08:00 30 10/26/17 08:00 99.9 106 19 125/54 (77) 97 10/26/17 06:00 92 10/26/17 04:06 99 30 10/26/17 04:00 101 10/26/17 04:00 99.7 101 18 152/65 (94) 98 10/26/17 04:00 30 10/26/17 02:00 94 10/26/17 00:00 30 10/26/17 00:00 100.8 92 18 127/60 (82) 100 10/26/17 00:00 92 10/25/17 23:40 100 30 10/25/17 22:00 96 10/25/17 20:16 96 30 10/25/17 20:00 114 10/25/17 20:00 100.7 106 18 170/71 (104) 98 10/25/17 20:00 30 10/25/17 18:00 107 10/25/17 17:07 100 30 Intake & Output 10/26/17 10/26/17 07:00 19:00 Intake Total 839 ml Output Total 475 ml Balance 364 ml Tube Feeding 549 ml Tube Irrigant 90 ml Other 200 ml Output Urine Total 475 ml Drainage Total 0 ml # Bowel Movements 0 . Physical Exam CONSTITUTIONAL/GENERAL: This is an adequately nourished, female patient who is critically ill. TUBES/LINES/DRAINS: PIV 2, Rogers catheter, NGT, SCDs, soft restraints SKIN: No jaundice, rashes, or lesions. Ecchymoses on upper extremities. No wounds seen anteriorly. Skin temperature appropriate. Not diaphoretic. HEAD: Atraumatic. Normocephalic. EYES: Pupils equal and round and reactive. Extraocular motions intact. No scleral icterus. No injection or drainage. Fundi not examined. ENT: Unable to assess hearing given patient's clinical condition. Nose without bleeding or purulent drainage. T NECK: Trachea midline. Supple, nontender. No palpable thyroid enlargement or nodularity. CARDIOVASCULAR: Regular rate and rhythm. No JVD. Peripheral pulses symmetric. RESPIRATORY/CHEST: Symmetric, unlabored respirations. Clear to auscultation bilaterally. GASTROINTESTINAL: Abdomen soft, non-tender, nondistended. No hepato-splenomegaly , or palpable masses. No guarding. Bowel sounds present. GENITOURINARY: Without palpable bladder distension. MUSCULOSKELETAL: Extremities without clubbing, cyanosis, or edema. No mottling or clubbing. LYMPHATICS: No palpable cervical or supraclavicular adenopathy. NEUROLOGICAL: Minimally responsive. Does not arouse to verbal stimuli or open eyes. Patient withdraws upper and lower extremities on left side to tactile stimuli PSYCHIATRIC: Unable to assess given patient's current clinical condition . . (Soraya Silveira) Diagnostic Tests Laboratory Laboratory Tests Test 10/23/17 21:20 10/24/17 02:35 10/24/17 04:00 10/24/17 10:44 Sodium Level 160 MEQ/L (136-145) 157 MEQ/L (136-145) 155 MEQ/L (136-145) Serum Osmolality 343 MOSM/KG (275-295) 339 MOSM/KG (275-295) 334 MOSM/KG (275-295) Blood Urea Nitrogen 29 MG/DL (7-18) Creatinine 0.81 MG/DL (0.50-1.00) Random Glucose 191 MG/DL (74-106) Calcium Level 8.6 MG/DL (8.5-10.1) Phosphorus Level 2.2 MG/DL (2.5-4.9) Magnesium Level 2.2 MG/DL (1.5-2.5) Potassium Level 4.0 MEQ/L (3.5-5.1) Chloride Level 124 MEQ/L (98-107) Carbon Dioxide Level 29.5 MEQ/L (21.0-32.0) Anion Gap 4 MEQ/L (5-15) Estimat Glomerular Filtration Rate 70 ML/MIN (>89) White Blood Count 12.8 TH/MM3 (4.0-11.0) Red Blood Count 3.18 MIL/MM3 (4.00-5.30) Hemoglobin 9.9 GM/DL (11.6-15.3) Hematocrit 29.8 % (35.0-46.0) Mean Corpuscular Volume 93.7 FL (80.0-100.0) Mean Corpuscular Hemoglobin 31.0 PG (27.0-34.0) Mean Corpuscular Hemoglobin Concent 33.1 % (32.0-36.0) Red Cell Distribution Width 13.3 % (11.6-17.2) Platelet Count 173 TH/MM3 (150-450) Mean Platelet Volume 9.2 FL (7.0-11.0) Test 10/24/17 17:10 Sodium Level 155 MEQ/L (136-145) Serum Osmolality 331 MOSM/KG (275-295) . (Soraya Silveira) Result Diagram: 10/24/17 0400 10/24/17 1710 Imaging Last [address] 10/24/17 0000 Signed Impressions: Service Date/Time: Tuesday, October 24, 2017 04:43 - CONCLUSION: Involving left MCA stroke with mild mass effect and no definite hemorrhage. Sherron Lutz MD . Procedures 10/17/2017: NGT placement 10/21/17: Right subclavian CVL 10/22/17: Left radial arterial line placement 10/22/17: Pigtail catheter placement . . (Soraya Silveira) Assessment and Plan Disease Oriented Problem List: (1) Hypertension (2) Diabetes (3) Hyperlipidemia (4) Acute CVA (cerebrovascular accident) Symptom Scale: (1) Dyspnea (2) Encephalopathy (3) Pain Pertinent Non-Medical Issues Psychosocial: Patient is originally from [place]. She has been to her current (Odilon) for approximately 25 years. Odilon has 1 adult son from a previous relationship, and Ester (who prefers to be called by her middle name- Indy) has 2 adult sons. Ester worked a [employer] in [employer]. When her retired 18 years ago, she quit her job in [place]. Spiritual: Rastafari serg Legal: Per [place] statutes, and absence of written advanced directives healthcare proxy decision-making falls to the patient's . Ethical issues impacting care: No known ethical issues impacting care at this time . Important Contacts Odilon Lake, spouse: [phone] . Prognosis Patient is a 72-year-old female who has sustained a large left-sided MCA stroke ; prognosis is guarded. The patient survives this hospitalization, she will likely have a prolonged recovery which makes her high risk for ongoing setbacks and complications. . Code Status: No Code Plan * NO CODE-DNR/DNI * Decision-making: Patient is unable to participate in medical decision making given her current clinical condition, it is unknown if she will be able to participate in the future. Per [place] statutes, and absence of written advanced directives healthcare proxy decision-making falls to the patient's . * Family confirms DNR status. Palliative care met with the patient's family this afternoon after family arrived. Given the devastating defects noted on CT, the family wishes to compassionate withdrawal artificial life support as this is what she has indicated she would want in multiple previous conversations with her family. Anticipatory guidance provided. Family plans to say their goodbyes prior to withdrawal. * Exhibits B&C has been signed and placed on the patient's chart. Orders for comfort medications have been placed in the computer. * Discussed patient with bedside nurse ([place]) and Dr Weiss * Palliative care will continue to follow this patient throughout his/her hospitalization to build rapport, assist with symptom managment and goal clarification. * If patient survives throughout the night, may consider hospice referral tomorrow 10/27/17 . (Soraya Silveira) Attestation To help prompt me to consider important information that might be impacting today's encounter and assessment, information from prior notes written by myself or my colleagues may have been "brought forward" into today's note. My signature on this note, however, is an attestation that I personally performed the exam, history, and/or decision-making noted today, and, unless otherwise indicated, the interactions with patient, family, and staff as well as the review of records all occurred today. I also attest that the listed assessment and stated plan reflect my best clinical judgment today based on the combination of historical information, prior notes, and today's exam/ interactions. When time spent is documented, it refers only to time spent today by the signer, or if indicated, combined time spent today by collaborating physician/nurse practitioner. . (Soraya Silveira) Collaborating MD Comments Chart reviewed. Case discussed with palliative care PALLET STONE POSITIONER. Above PALLET STONE POSITIONER note reviewed and I concur. . (Gordon Garcia MD) Soraya Silveira Oct 26, 2017 16:46 Gordon Garcia MD Nov 04, 2017 16:34
--- NOTE | 2017-10-26 17:12 | HHI.NSPN ---
(Bernice Johnson) Note Status Status: Progress Note (Bernice Johnson) Interval History Interval History 72-year-old white female admitted with acute altered mental status. She did not verbalize any coherent speech nor follow any commands. She was admitted to [facility]. Apparently not much was done there. She deteriorated todat requiring emergency endotracheal intubation. I was called urgently by Dr Barton, However the patient is still not here. 10/22: ICPs below 15, intubated, mildly sedated on propofol. 10/23: ICPs normal, moving left side spontaneously, remains intubated. 10/26: reports to be moving left side, right side is flaccid. family deciding on possible withdrawal and hospice care (Bernice Johnson) Labs, Micro, & Vital Signs Results Date Time Temp Pulse Resp B/P (MAP) Pulse Ox O2 Delivery O2 Flow Rate FiO2 10/26/17 16:00 102 10/26/17 16:00 99.6 102 18 134/59 (84) 100 10/26/17 16:00 30 10/26/17 14:00 93 10/26/17 12:00 99.8 90 18 135/59 (84) 100 10/26/17 12:00 100 30 10/26/17 12:00 90 10/26/17 12:00 30 10/26/17 10:00 90 10/26/17 08:44 99 30 10/26/17 08:00 106 10/26/17 08:00 30 10/26/17 08:00 99.9 106 19 125/54 (77) 97 10/26/17 06:00 92 10/26/17 04:06 99 30 10/26/17 04:00 101 10/26/17 04:00 99.7 101 18 152/65 (94) 98 10/26/17 04:00 30 10/26/17 02:00 94 10/26/17 00:00 30 10/26/17 00:00 100.8 92 18 127/60 (82) 100 10/26/17 00:00 92 2/18/18 23:40 100 30 18 22:00 96 18 20:16 96 30 10/25/17 20:00 114 10/25/17 20:00 100.7 106 18 170/71 (104) 98 10/25/17 20:00 30 10/25/17 18:00 107 Constitutional Vital Signs Date Time Temp Pulse Resp B/P (MAP) Pulse Ox O2 Delivery O2 Flow Rate FiO2 10/26/17 16:00 102 10/26/17 16:00 99.6 102 18 134/59 (84) 100 10/26/17 16:00 30 10/26/17 14:00 93 10/26/17 12:00 99.8 90 18 135/59 (84) 100 10/26/17 12:00 100 30 10/26/17 12:00 90 10/26/17 12:00 30 10/26/17 10:00 90 10/26/17 08:44 99 30 10/26/17 08:00 106 10/26/17 08:00 30 10/26/17 08:00 99.9 106 19 125/54 (77) 97 10/26/17 06:00 92 10/26/17 04:06 99 30 10/26/17 04:00 101 10/26/17 04:00 99.7 101 18 152/65 (94) 98 10/26/17 04:00 30 10/26/17 02:00 94 10/26/17 00:00 30 10/26/17 00:00 100.8 92 18 127/60 (82) 100 10/26/17 00:00 92 10/25/17 23:40 100 30 18 22:00 96 10/25/17 20:16 96 30 18 20:00 114 10/25/17 20:00 100.7 106 18 170/71 (104) 98 10/25/17 20:00 30 10/25/17 18:00 107 (Bernice Johnson) Review of Systems ROS Limitations: Intubated (Bernice Johnson) Physical Exam Intubated. She grimaces to noxious stimuli. Cranial Nerves: Pupils 2-3 mm equal, round, reactive to light. Eyes appear conjugated. Cervical Spine: soft, supple Motor: reportedly moves left side spontaneously, no movement right side Reflexes: trace throughout. Plantars silent bilaterally. Cerebellar: cannot be assessed due to current clinical condition Lungs: clear Heart: regular rate Skin: warm and dry (Bernice Johnson) Intubated. She grimaces to noxious stimuli. Cranial Nerves: Pupils 2-3 mm equal, round, reactive to light. Eyes appear conjugated. Cervical Spine: soft, supple Motor: reportedly moves left side spontaneously, no movement right side Reflexes: trace throughout. Plantars silent bilaterally. Cerebellar: cannot be assessed due to current clinical condition Lungs: clear Heart: regular rate Skin: warm and dry (Godwin Tello MD) Medications Current Medications Current Medications Medications (Trade) Dose Ordered Sig/Jeyson Route PRN Reason Start Time Stop Time Status Last Admin Dose Admin Albuterol/ Ipratropium (Duoneb Neb) 1 ampule Q2HR NEB PRN NEB wheezing 10/22/17 12:00 10/22/17 11:53 Lorazepam (Ativan Inj) 1 mg Q4HR IV PUSH 10/26/17 20:00 Lorazepam (Ativan Inj) 1 mg Q1H PRN IV PUSH SEE LABEL COMMENTS 10/26/17 16:45 Lorazepam (Ativan Inj) 2 mg Q15M PRN IV PUSH SEIZURES 10/26/17 16:45 Hyoscyamine Sulfate (Levsin Inj) 0.25 mg Q4H PRN IV PUSH SECRETIONS 10/26/17 16:45 Acetaminophen (Tylenol Supp) 650 mg Q4H PRN RECTAL FEVER 10/26/17 16:45 Furosemide (Lasix Inj) 20 mg Q6H PRN IV PUSH Pulmonary Congestion 10/26/17 16:45 Bisacodyl (Dulcolax Supp) 10 mg DAILY PRN RECTAL CONSTIPATION 10/26/17 16:45 Fentanyl Citrate 250 ml @ 5 mls/hr TITRATE PRN IV SEDATION 10/26/17 16:15 (Bernice Johnson) Current Medications Current Medications Nicardipine HCl 25 mg/Sodium Chloride 250 ml @ 50 mls/hr TITRATE PRN IV Blood pressure management Last administered on 10/17/17at 09:20; Start 10/17/17 at 08: 45; Stop 10/17/17 at 19:52; Status DC Aspirin (Aspirin Supp) 300 mg ONCE ONCE RECTAL Last administered on 10/17/17at 10:14; Start 10/17/17 at 09:30; Stop 10/17/17 at 09:31; Status DC Sodium Chloride (NS Flush) 2 ml BID IV FLUSH Last administered on 10/26/17at 08: 58; Start 10/17/17 at 21:00; Stop 10/26/17 at 16:05; Status DC Sodium Chloride (NS Flush) 2 ml UNSCH PRN IV FLUSH FLUSH AFTER USING IV ACCESS ; Start 10/17/17 at 09:45; Stop 10/26/17 at 16:05; Status DC Insulin Aspart (NovoLOG SUPPLEMENTAL SCALE) 1 ACHS SQ Last administered on 10/19at 13:24; Start 10/17/17 at 12:00; Stop 10/19/17 at 15:06; Status DC Dextrose (D50w (Vial) Inj) 50 ml UNSCH PRN IV PUSH HYPOGLYCEMIA-SEE COMMENTS; Start 10/17/17 at 09:45; Stop 10/19/17 at 15:06; Status DC Glucagon (Glucagon Inj) 1 mg UNSCH PRN OTHER HYPOGLYCEMIA-SEE COMMENTS; Start 10/17/17 at 09:45; Stop 10/19/17 at 15:06; Status DC Atorvastatin Calcium (Lipitor) 40 mg HS PO Last administered on 10/25/17at 22:02 ; Start 10/18/17 at 21:00; Stop 10/26/17 at 16:05; Status DC Atorvastatin Calcium (Lipitor) 40 mg ONCE ONCE PO ; Start 10/17/17 at 11:00; Stop 10/17/17 at 11:01; Status DC Sodium Chloride 1,000 ml @ 75 mls/hr [id number] IV Last administered on at 20:39; Start 10/17/17 at 10:30; Stop 10/20/17 at 13:40; Status DC Doxycycline Hyclate 100 mg/ Sodium Chloride 100 ml @ 100 mls/hr Q12H IV Last administered on 10/19/17at 13:23; Start 10/17/17 at 12:00; Stop 10/19/17 at 15:11 ; Status DC Miscellaneous Information Patient in critical care unit? Ass... [id number] .XX Last administered on 10/17/17at 11:00; Start 10/17/17 at 11:00; Stop 10/26/17 at 16:05; Status DC Chlorhexidine Gluconate (Chlorhexidine 2% Cloth) 3 pack DAILY@04 TOPICAL Last administered on 10/21/17at 04:00; Start 10/18/17 at 04:00; Stop 10/22/17 at 04:01 ; Status DC Chlorhexidine Gluconate (Chlorhexidine 2% Cloth) 3 pack UNSCH PRN TOPICAL HYGIENIC CARE; Start 10/17/17 at 11:00; Stop 10/22/17 at 10:57; Status DC Gadobenate Dimeglumine (Multihance Pf Inj) 15 ml STK-MED ONCE IV Last administered on 10/17/17at 12:02; Start 10/17/17 at 12:02; Stop 10/17/17 at 12:03 ; Status DC Nicardipine HCl 25 mg/Sodium Chloride 260 ml @ 52 mls/hr TITRATE PRN IV Blood pressure management Last administered on 10/21/17at 08:14; Start 10/17/17 at 20: 00; Stop 10/21/17 at 12:11; Status DC Ondansetron HCl (Zofran Inj) 4 mg Q6HR PRN IV PUSH NAUSEA OR VOMITING Last administered on 10/18/17at 00:48; Start 10/18/17 at 00:45; Stop 10/26/17 at 16:05 ; Status DC Prochlorperazine Edisylate (Compazine Inj) 5 mg Q4H PRN IV PUSH N/V not relieved with Zofran; Start 10/18/17 at 00:45; Stop 10/26/17 at 16:05; Status DC Labetalol HCl (Trandate Inj) 20 mg ONCE ONCE IV PUSH ; Start 10/19/17 at 15:00 ; Stop 10/19/17 at 15:07; Status DC Atenolol (Tenormin) 25 mg DAILY PO Last administered on 10/20/17at 08:10; Start 10/19/17 at 15:00; Stop 10/20/17 at 16:26; Status DC Verapamil HCl (Isoptin) 120 mg BID PO Last administered on 10/21/17at 10:30; Start 10/19/17 at 21:00; Stop 10/26/17 at 16:05; Status DC Aspirin (Aspirin Supp) 300 mg ONCE ONCE RECTAL Last administered on 10/19/17at 15:00; Start 10/19/17 at 15:00; Stop 10/19/17 at 15:01; Status DC Enoxaparin Sodium (Lovenox Inj) 30 mg Q24H SQ Last administered on 10/20/17at 15 :39; Start 10/19/17 at 15:00; Stop 10/26/17 at 16:05; Status DC Docusate Sodium (Colace) 100 mg BID PO Last administered on 10/26/17at 08:58; Start 10/19/17 at 15:00; Stop 10/26/17 at 16:05; Status DC Losartan Potassium (Cozaar) 100 mg DAILY PO Last administered on 10/21/17at 10: 30; Start 10/19/17 at 15:00; Stop 10/26/17 at 16:05; Status DC Insulin Human Regular (NovoLIN R SUPPLEMENTAL SCALE) 1 ACHS SLIDING SCALE SQ Last administered on 10/26/17at 12:00; Start 10/19/17 at 17:00; Stop 10/26/17 at 16:05; Status DC Diltiazem HCl (Cardizem Inj) 10 mg ONCE ONCE IV Last administered on at 15:16; Start 10/19/17 at 15:15; Stop 10/19/17 at 15:16; Status DC Insulin Detemir (Levemir Inj) 10 units HS SQ Last administered on 10/20/17at 20: 51; Start 10/19/17 at 21:00; Stop 10/21/17 at 07:44; Status DC Potassium Bicarb/ Potassium Chloride (K-Lyte Cl Eff) 50 meq Q1H NG Last administered on 10/20/17at 08:11; Start 10/20/17 at 08:00; Stop 10/20/17 at 09:01 ; Status DC Potassium Chloride 100 ml @ 50 mls/hr ONCE ONCE IV Last administered on at 07:56; Start 10/20/17 at 08:00; Stop 10/20/17 at 09:59; Status DC Atenolol (Tenormin) 25 mg BID PO Last administered on 10/21/17at 10:30; Start at 21:00; Stop 10/21/17 at 17:01; Status DC Aspirin (Aspirin Supp) 300 mg DAILY RECTAL ; Start 10/21/17 at 09:00; Stop 10/26 at 16:05; Status DC Potassium Bicarb/ Potassium Chloride (K-Lyte Cl Eff) 25 meq ONCE ONCE PO Last administered on 10/20/17at 23:21; Start 10/20/17 at 23:00; Stop 10/20/17 at 23:01; Status DC Potassium Bicarb/ Potassium Chloride (K-Lyte Cl Eff) 50 meq ONCE ONCE PO Last administered on 10/21/17at 10:31; Start 10/21/17 at 07:45; Stop 10/21/17 at 07:52; Status DC Potassium Chloride 100 ml @ 50 mls/hr BOLUS ONCE IV Last administered on 10/21at 10:18; Start 10/21/17 at 07:45; Stop 10/21/17 at 09:44; Status DC Insulin Detemir (Levemir Inj) 10 units BID SQ Last administered on 10/22/17at 09 :16; Start 10/21/17 at 09:00; Stop 10/22/17 at 14:13; Status DC Hydralazine HCl (Apresoline) 10 mg Q6HR NG Last administered on 10/21/17at 08:15 ; Start 10/21/17 at 08:15; Stop 10/21/17 at 12:11; Status DC Potassium Chloride 100 ml @ 50 mls/hr BOLUS ONCE IV Last administered on 10/21at 17:07; Start 10/21/17 at 11:15; Stop 10/21/17 at 13:14; Status DC Nicardipine HCl 25 mg/Sodium Chloride 260 ml @ 52 mls/hr TITRATE PRN IV Blood pressure management; Start 10/21/17 at 12:15; Stop 10/21/17 at 17:01; Status DC Dopamine HCl/ Dextrose 500 ml @ 7.121 mls/ hr TITRATE PRN IV Blood Pressure Management/ HR ; Start 10/21/17 at 12:15; Stop 10/26/17 at 16:05; Status DC Terbutaline Sulfate (Brethine Inj) 1 mg UNSCH PRN SQ For Extravasation; Start 10/21/17 at 12:15; Stop 10/26/17 at 16:05; Status DC Succinylcholine Chloride (Quelicin Inj) 200 mg STK-MED ONCE .ROUTE ; Start 10/21 at 13:13; Stop 10/21/17 at 13:14; Status DC Etomidate (Amidate Inj) 20 mg STK-MED ONCE .ROUTE ; Start 10/21/17 at 13:13; Stop 10/21/17 at 13:14; Status DC Propofol 50 ml @ As Directed STK-MED ONCE .ROUTE Last administered on at 14:24; Start 10/21/17 at 13:21; Stop 10/21/17 at 13:22; Status DC Famotidine (Pepcid Inj) 20 mg Q12HR IV PUSH Last administered on 10/26/17at 08: 58; Start 10/21/17 at 21:00; Stop 10/26/17 at 16:05; Status DC Midazolam HCl (Versed Inj) 2 mg Q1H PRN IV PUSH SEDATION; Start 10/21/17 at 13: 30; Stop 10/26/17 at 16:05; Status DC Lorazepam (Ativan Inj) 1 mg Q1H PRN IV PUSH Agitation/Sedation; Start 10/21/17 at 13:30; Stop 10/21/17 at 17:01; Status DC Chlorhexidine Gluconate (Peridex 0.12% Liq) 15 ml BID@08,20 MT Last administered on 10/26/17at 08:00; Start 10/21/17 at 20:00; Stop 10/26/17 at 16:05 ; Status DC Propofol 100 ml @ 1.899 mls/ hr TITRATE PRN IV SEDATION Last administered on at 00:45; Start 10/21/17 at 13:30; Stop 10/26/17 at 16:05; Status DC Potassium Chloride 100 ml @ 50 mls/hr Q2H PRN IV For Potassium 2.8 - 3.2 mEq/L ; Start 10/21/17 at 13:30; Stop 10/26/17 at 16:05; Status DC Potassium Chloride 100 ml @ 50 mls/hr Q2H PRN IV For Potassium 2.8 - 3.2 mEq/L ; Start 10/21/17 at 13:30; Stop 10/26/17 at 16:05; Status DC Potassium Bicarb/ Potassium Chloride (K-Lyte Cl Eff) 50 meq UNSCH PRN PO For Potassium 3.3 - 3.5 mEq/L; Start 10/21/17 at 13:30; Stop 10/26/17 at 16:05; Status DC Potassium Chloride 100 ml @ 25 mls/hr UNSCH PRN IV For Potassium 3.3 - 3.5 mEq /L; Start 10/21/17 at 13:30; Stop 10/26/17 at 16:05; Status DC Potassium Chloride 100 ml @ 50 mls/hr Q2H PRN IV For Potassium 3.3 - 3.5 mEq/L ; Start 10/21/17 at 13:30; Stop 10/26/17 at 16:05; Status DC Magnesium Sulfate 4 gm/Sodium Chloride 100 ml @ 50 mls/hr UNSCH PRN IV For Magnesium 0.9 - 1.1 mg/dL; Start 10/21/17 at 13:30; Stop 10/26/17 at 16:05; Status DC Magnesium Oxide (Mag-Ox) 800 mg UNSCH PRN PO For Magnesium 1.2 - 1.6 mg/dL; Start 10/21/17 at 13:30; Stop 10/26/17 at 16:05; Status DC Magnesium Sulfate 2 gm/Sodium Chloride 100 ml @ 50 mls/hr UNSCH PRN IV For Magnesium 1.2 - 1.6 mg/dL; Start 10/21/17 at 13:30; Stop 10/26/17 at 16:05; Status DC Potassium Phosphate (K-Phos) 2,000 mg Q4H PRN PO For Phosphorus < 2.5 mg/dL; Start 10/21/17 at 13:30; Stop 10/26/17 at 16:05; Status DC Sodium Phosphate 30 mmol/Sodium Chloride 250 ml @ 42 mls/hr UNSCH PRN IV For Phosphorus < 2.5 mg/dL; Start 10/21/17 at 13:30; Stop 10/26/17 at 16:05; Status DC Potassium Phosphate (K-Phos) 2,000 mg UNSCH PRN PO/TUBE SEE LABEL COMMENTS; Start 10/21/17 at 13:30; Stop 10/26/17 at 16:05; Status DC Potassium Phosphate 30 mmol/ Sodium Chloride 260 ml @ 42 mls/hr UNSCH PRN IV SEE LABEL COMMENTS; Start 10/21/17 at 13:30; Stop 10/26/17 at 16:05; Status DC Etomidate (Amidate Inj) 20 mg ONCE ONCE IV PUSH Last administered on at 14:26; Start 10/21/17 at 13:30; Stop 10/21/17 at 14:02; Status DC Succinylcholine Chloride (Quelicin Inj) 100 mg ONCE ONCE IV PUSH Last administered on 10/21/17at 14:23; Start 10/21/17 at 14:00; Stop 10/21/17 at 14:01 ; Status DC Fentanyl Citrate 250 ml @ 5 mls/hr TITRATE PRN IV SEDATION Last administered on 10/26/17at 04:11; Start 10/21/17 at 13:45; Stop 10/26/17 at 16:10; Status DC Mannitol (Mannitol Inj) 25 gm ONCE ONCE IV Last administered on 10/21/17at 14: 10; Start 10/21/17 at 13:45; Stop 10/21/17 at 14:01; Status DC Midazolam HCl (Versed Inj) 5 mg STK-MED ONCE .ROUTE Last administered on 14:24; Start 10/21/17 at 13:40; Stop 10/21/17 at 13:41; Status DC Mannitol 50 ml @ As Directed STK-MED ONCE .ROUTE Last administered on at 14:01; Start 10/21/17 at 14:01; Stop 10/21/17 at 14:02; Status DC Sodium Chloride 188 meq/Sodium Chloride 1,047 ml @ 10 mls/hr Q24H IV Last administered on 10/22/17at 09:16; Start 10/21/17 at 16:00; Stop 10/26/17 at 16:05 ; Status DC Morphine Sulfate (Morphine Inj) 2 mg STK-MED ONCE .ROUTE Last administered on 17:05; Start 10/21/17 at 16:09; Stop 10/21/17 at 16:10; Status DC Fentanyl Citrate (fentaNYL INJ) 200 mcg STK-MED ONCE .ROUTE Last administered on 10/21/17 17:05; Start 10/21/17 at 16:15; Stop 10/21/17 at 16:16; Status DC Norepinephrine Bitartrate 250 ml @ As Directed STK-MED ONCE IV Last administered on 10/21/17at 16:48; Start 10/21/17 at 16:48; Stop 10/21/17 at 16:49 ; Status DC Norepinephrine Bitartrate 4 mg/ Sodium Chloride 250 ml @ 7.5 mls/hr TITRATE PRN IV Blood pressure management Last administered on 10/23/17at 06:12; Start at 17:00; Stop 10/26/17 at 16:05; Status DC Terbutaline Sulfate (Brethine Inj) 1 mg UNSCH PRN SQ For Extravasation; Start 10/21/17 at 17:00; Stop 10/21/17 at 17:00; Status DC Nicardipine HCl 25 mg/Sodium Chloride 260 ml @ 52 mls/hr TITRATE PRN IV Blood pressure management; Start 10/21/17 at 17:00; Stop 10/26/17 at 16:05; Status DC Mannitol (Mannitol Inj) 25 gm Q6HR IV ; Start 10/21/17 at 21:00; Stop 10/22/17 at 14:14; Status DC Albuterol/ Ipratropium (Duoneb Neb) 1 ampule Q6HR NEB NEB Last administered on 10/26/17at 08:44; Start 10/22/17 at 16:00; Stop 10/26/17 at 15:59; Status DC Albuterol/ Ipratropium (Duoneb Neb) 1 ampule Q2HR NEB PRN NEB wheezing Last administered on 10/22/17at 11:53; Start 10/22/17 at 12:00; Stop 10/26/17 at 19:19 ; Status DC Insulin Detemir (Levemir Inj) 10 units Q12HR SQ Last administered on 10/26/17at 08:58; Start 10/22/17 at 21:00; Stop 10/26/17 at 16:05; Status DC Labetalol HCl (Trandate Inj) 10 mg Q1HR PRN IV PUSH SBP>160, DBP>90, HR>65 Last administered on 10/23/17at 16:30; Start 10/23/17 at 16:30; Stop 10/26/17 at 16:05; Status DC Fentanyl Citrate (fentaNYL INJ) 50 mcg ONCE ONCE IV PUSH Last administered on 10/26/17at 17:00; Start 10/26/17 at 16:15; Stop 10/26/17 at 16:42; Status DC Lorazepam (Ativan Inj) 2 mg ONCE ONCE IV PUSH Last administered on 10/26/17at 17:00; Start 10/26/17 at 16:15; Stop 10/26/17 at 16:42; Status DC Hyoscyamine Sulfate (Levsin Inj) 0.25 mg ONCE ONCE IV PUSH Last administered on 10/26/17at 17:00; Start 10/26/17 at 16:15; Stop 10/26/17 at 16:42; Status DC Fentanyl Citrate (fentaNYL INJ) 25 mcg ONCE ONCE IV PUSH ; Start 10/26/17 at 16 :30; Stop 10/26/17 at 16:54; Status DC Lorazepam (Ativan Inj) 2 mg ONCE ONCE IV PUSH ; Start 10/26/17 at 16:30; Stop 10/26/17 at 16:54; Status DC Lorazepam (Ativan Inj) 1 mg Q4HR IV PUSH ; Start 10/26/17 at 20:00; Stop at 20:00; Status DC Lorazepam (Ativan Inj) 1 mg Q1H PRN IV PUSH SEE LABEL COMMENTS; Start 10/26/17 at 16:45; Stop 10/26/17 at 19:19; Status DC Lorazepam (Ativan Inj) 2 mg Q15M PRN IV PUSH SEIZURES; Start 10/26/17 at 16:45 ; Stop 10/26/17 at 19:19; Status DC Hyoscyamine Sulfate (Levsin Inj) 0.25 mg Q4H PRN IV PUSH SECRETIONS; Start at 16:45; Stop 10/26/17 at 19:19; Status DC Acetaminophen (Tylenol Supp) 650 mg Q4H PRN RECTAL FEVER; Start 10/26/17 at 16: 45; Stop 10/26/17 at 19:19; Status DC Furosemide (Lasix Inj) 20 mg Q6H PRN IV PUSH Pulmonary Congestion; Start at 16:45; Stop 10/26/17 at 19:19; Status DC Bisacodyl (Dulcolax Supp) 10 mg DAILY PRN RECTAL CONSTIPATION; Start 10/26/17 at 16:45; Stop 10/26/17 at 19:19; Status DC Fentanyl Citrate 250 ml @ 5 mls/hr TITRATE PRN IV SEDATION Last administered on 10/26/17at 17:14; Start 10/26/17 at 16:15; Stop 10/26/17 at 19:19; Status DC (Godwin Tello MD) Medical Decision Making MDM Remarks 72 y/o female with 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 Progonosis is poor The exam, history, and the medical decision-making described in the above note were completed with the assistance of the mid-level provider. I reviewed and agree with the findings presented. I attest that I had a [id number] encounter with the patient on the same day, and personally performed and documented my assessment and findings in the medical record. (Godwin Tello MD) Bernice Johnson Oct 26, 2017 17:12 Godwin Tello MD Oct 30, 2017 15:41
--- NOTE | 2017-10-26 17:38 | HHI.CCPN ---
Subjective Remarks/Hospital Course 10/21: 72-year-old female who recently presented to hospital on October 17, 2017 because sometime in the morning, her found her on the couch almost motionless, slouching in a reclining position. He attempted to stimulator but she only mild response. It was indicated that time that she was moving both her legs but did not notice any movement in her arms. The patient was unable to communicate and no coherent speech, was unable to follow commands. The last time that she is notably normal was the night prior to her going to bed. She had been treating herself for a head cold for approximately a week prior. She was seen in urgent care the day before coming to the hospital and prescribed some kind of antibiotic. As indicated that her blood glucoses were 400 at the urgent care center. Ambulance was called and the patient was brought to the emergency department for evaluation. Patient was not a candidate for TPA at that time due to unknown time frame of onset of symptoms. Patient had workup done in found to have significant hypertension, CT scan did show increased density involving the left MCA as compared to right which is concerning for acute thrombosis. Patient was admitted to the hospital for further evaluation and management. Patient had MRI, MRA performed which did show very large evolving left MCA CVA. Patient clinical condition did not improve, patient was still unable to communicate, unable to open eyes, pupils remained round and reactive to light. Patient was doing well and today on examination she actually hollowed commanded by gripping my hand with her left hand. Patient had been on Cardene and blood pressure medication has been adjusted to maintain systolic blood pressure 140-160. Nursing staff notified me that the patient had acute onset of bradycardia with heart rate in the 30s. At that time I notified Dr. Barton and stat CT was performed. CT did indicate significant worsening of the stroke with hemorrhagic conversion, midline shift. Patient was emergently intubated for airway support. Started hyperventilation to maintain End tidal CO2 30-36, 25 g mannitol IV given, head of bed raised at 45. Patient started on 2% saline solution with monitoring sodium every 6 hours. Stat consultation to neurosurgery was performed. I personally discussed the case with Amy, the PA that works with Dr. Tello. I discussed his case will radio time buyer for Dr. Barton, Dr. Thompson. Stat transfer to the [facility] was requested. 10/22: Remains sedated, orally intubated on mechanical ventilation. Noted to have right pneumothorax on a.m. chest x-ray today for with right pigtail catheter placed by myself following which there was transient airleak was stopped within a minute of chest tube placement. On 2% saline which was held this morning and remains on mannitol. 10/23: No improvement in neurological function. Devastating defect on CT. ICP controlled at 7-8. Tapering off vasopressors. 10/24: Large completed stroke dominant hemisphere. [place] removed as ICP was well controlled. Continue EtCO2 monitoring. I have discussed prognosis in detail with her and son. They confirm DNR status and are waiting for other family to arrive. 10/25: No change or improvement. 10/26: No improvement after large dominant hemisphere stroke. Objective Vital Signs Date Time Temp Pulse Resp B/P (MAP) Pulse Ox O2 Delivery O2 Flow Rate FiO2 10/26/17 16:00 102 10/26/17 16:00 99.6 18 134/59 (84) 100 10/26/17 16:00 30 10/25/17 09:46 Ventilator Intake and Output 10/26/17 10/26/17 10/27/17 08:00 16:00 00:00 Intake Total 839 ml Output Total 475 ml Balance 364 ml Result Diagram: 10/24/17 0400 10/24/17 1710 Imaging Last Impressions Chest X-Ray 10/21/17 1339 Signed Impressions: Service Date/Time: Saturday, October 21, 2017 13:43 - CONCLUSION: Lines and tubes as detailed above. Clear lungs. Lei Cast Jr., MD Head CT 10/21/17 0000 Signed Impressions: Service Date/Time: Saturday, October 21, 2017 12:37 - CONCLUSION: 1. 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 Lei Cast Jr., MD Abdomen X-Ray 10/18/17 0000 Signed Impressions: Service Date/Time: Wednesday, October 18, 2017 17:20 - CONCLUSION: Gastric tube tip and side-port project within the stomach. Lei Kerr MD Neck Magnetic Resonance Angiography 10/17/17 0934 Signed Impressions: Service Date/Time: Tuesday, October 17, 2017 11:17 - CONCLUSION: Mild posterior soft plaque in left carotid bulb non-stenotic. Slit like, pinch stenosis at the origin of the right internal carotid artery. Poor visualization origin of the dominant left vertebral artery . Bilateral internal carotids in the siphon are somewhat irregular and poorly visualized however intracranially there is absence of flow in the left middle cerebral artery. Raj Reinoso MD Head Magnetic Resonance Angiography 10/17/1734 Signed Impressions: Service Date/Time: Tuesday, October 17, 2017 11:17 - CONCLUSION: Complete occlusion of the left MCA corresponding with the hyperdense left MCA seen on comparison CT. Mary Jane Caballero MD Brain MRI 10/17/17933 Signed Impressions: Service Date/Time: Tuesday, October 17, 2017 11:17 - CONCLUSION: Acute left MCA stroke Raj Reinoso MD Objective Remarks GENERAL: Well-developed, well-nourished. HEENT: Head is normocephalic without any lesions or masses noted. Eyes: Conjunctivae were clear. NECK: Supple without any masses. Trachea midline no deviation. Orally intubated. CARDIAC: Regular rhythm, regular rate. S1/S2 are heard. No murmurs gallops or rubs. No JVD. LUNGS: Clear to auscultation bilaterally. No wheeze, rhonchi or rales. Good bilateral expansion. ABDOMEN: Soft, nontender. Nondistended. Bowel sounds active. No guarding. EXTREMITIES: No edema, pulses are equal bilaterally. No cyanosis or clubbing. Well perfused. NEUROLOGY: Orally intubated on mechanical ventilation. Left pupil dilated. Moves left upper and lower extremity spontaneously. Right hemiplegia. No eye opening. A/P Problem List: (1) Acute CVA (cerebrovascular accident) ICD Code: I63.9 - Cerebral infarction, unspecified Status: Acute (2) Major neurological deficit ICD Code: R29.818 - Other symptoms and signs involving the nervous system Status: Acute (3) Aphasia due to acute stroke ICD Code: I63.9 - Cerebral infarction, unspecified; R47.01 - Aphasia Status: Acute (4) Right hemiplegia ICD Code: G81.91 - Hemiplegia, unspecified affecting right dominant side Status: Acute (5) Encephalopathy ICD Code: G93.40 - Encephalopathy, unspecified Status: Acute (6) Leukocytosis ICD Code: D72.829 - Elevated white blood cell count, unspecified (7) Hypertension ICD Code: I10 - Essential (primary) hypertension (8) Hyperlipidemia ICD Code: E78.5 - Hyperlipidemia, unspecified (9) Diabetes ICD Code: E11.9 - Type 2 diabetes mellitus without complications Status: Chronic Assessment and Plan NEUROLOGY Acute left MCA territory ischemic CVA secondary to occluded left MCA with significant cerebral edema and mass effect with minimal hemorrhagic conversion [id number] midline shift 4 mm Right hemiplegia Aphasia Encephalopathy Continue neurochecks per ICU protocol CT scan 10/21 shows hemorrhagic conversion of left MCA territory infarction now with 4 mm of [id number] midline shift Keep head of bed 45 2% saline to keep sodium 150 - 155 25 g mannitol IV Q6hrly to be stopped later today Monitor sodium/ osmolality every 6 hours Neurosurgical consultation has been requested and patient evaluated by Dr. Tello. [place] placed for ICP monitoring. ICP 5 Propofol/fentanyl for sedation to keep RASS -2 Neurology following the patient PT/OT is following the patient F/U CT shows large fixed defect left MCA distribution. PULMONOLOGY Acute respiratory failure on mechanical ventilation COPD Right pneumothorax status post pigtail catheter placement 10/22 Continue mechanical ventilation Ventilator bundle PRVC 18/500/1.0/5+/50% Monitor end-tidal CO2 and adjust respirations the to keep end-tidal CO2 around 35 No weaning trials still decrease of cerebral edema and midline shift Right pigtail catheter placed for pneumothorax with resolution on 10/22 CARDIOLOGY Hypertension, controlled Hyperlipidemia Acute bradycardia Monitor blood pressure and keep map greater than 65 Dopamine as needed to keep heart rate greater than 50 Levophed for pressor support to keep MAP greater than 65. Echocardiogram does indicate ejection fraction 60-65% with hyperdynamic systole Cardene drip to keep systolic blood pressure less than 180 Hold Atenolol 25 mg twice daily/losartan 100 mg daily/verapamil 120 mg twice daily in view of hypotension LDL 73, patient started on Lipitor 40 mg daily GASTROENTEROLOGY Dysphagia NG tube is in place at this time Tube feeding at goal of Jevity 1.5 with goal of 45 mL/hour, dietary following GI protection with Pepcid RENAL Monitor renal function ICU electrolyte replacement protocol 2% saline held as sodium greater than 155, will resume for sodium less than 150 INFECTIOUS DISEASE Leukocytosis No acute signs of infection at this time Continue monitor for infection Obtain blood cultures, sputum culture, influenza testing ENDOCRINOLOGY Diabetes Accu-Cheks with sliding scale insulin Levemir 10 units every 12 hours Hemoglobin A1c 7.8 TSH 3.11 HEMATOLOGY Hemoglobin has remained stable, coagulation factors are normal, platelet count is normal Continue monitor and address as needed PROPHYLAXIS GI protection with Pepcid DVT prevention with Lovenox and sequential compression devices LINES Right subclavian central line placed on 10/21 CODE STATUS Alternate CODE STATUS with intubation only. Being followed by palliative care team. Overall impression: Patient is critically ill after a large acute left MCA defect. Neurologically unstable. Discussed with patient's on 10/24 again and he tells me that patient would not want tracheostomy or PEG tube placement or neurosurgical intervention. Family is deciding about care options; favoring withdrawal of artificial support. Agree with withdrawal of artificial support; prognosis for meaningful recovery is close to zero. Most of her dominant hemisphere is necrotic. Problem Qualifiers (1) Diabetes: Shaw Boykin MD Oct 26, 2017 17:37
[2017-10-26] MEDS ORDERED: LORazepam 2 MG/ML VIAL IV PUSH SCH (20:00)
--- NOTE | 2017-10-27 08:10 | DEATH SUM ---
Summary Demographics Date Pronounced : Oct 26, 2017 Time Of : 1805 Pronounced By: Katie JosephRN Preliminary Cause of : Other (Massive ischemic stroke) Shaw Boykin MD Oct 27, 2017 08:10
--- NOTE | 2017-10-27 08:14 | HHI.DS ---
Discharge Summary Admission Date Oct 17, 2017 at 09:37 Discharge Date: Oct 26, 2017 Admitting Diagnosis acute CVA (1) Ischemic stroke ICD Code: I63.9 - Cerebral infarction, unspecified Diagnosis: Principal Status: Acute (2) Respiratory failure ICD Code: J96.90 - Respiratory failure, unspecified, unspecified whether with hypoxia or hypercapnia Diagnosis: Principal Status: Acute (3) Right hemiplegia ICD Code: G81.91 - Hemiplegia, unspecified affecting right dominant side Diagnosis: Secondary Status: Acute (4) Aphasia due to acute stroke ICD Code: I63.9 - Cerebral infarction, unspecified; R47.01 - Aphasia Diagnosis: Secondary Status: Acute (5) Diabetes ICD Code: E11.9 - Type 2 diabetes mellitus without complications Diagnosis: Secondary Status: Chronic Brief History 72-year-old white female being admitted for suspected stroke. Patient was in her usual state of health until sometime this morning when her found her lying on the couch being almost motionless, slouched in a reclining position. He attempted to talk to her and stimulate her but she only moan in response. He says at the time she was moving around both of her legs but did not notice much movement in her arms. She did not verbalize any coherent speech nor follow any commands. Says he called the ambulance. Prior to this he says the patient denies any of these symptoms at all. She was last noted to be normal last night prior to going to bed. For the last week or so she has had a "head cold" and saw urgent care yesterday and had taken a prescribed dose of some antibiotic last night. Says that her sugars were noted to be in the 400s yesterday at the urgent care, but usually are in the 120s in the morning. Past medical history includes diabetes which is apparently controlled in the 100s. Family history significant for sister having cervical cancer. Social history significant that the patient has been smoking for about 20 years. Lives with her . CBC/BMP: 10/24/17 0400 10/24/17 1710 Significant Findings Laboratory Tests Test 10/24/17 10:44 10/24/17 17:10 Sodium Level 155 MEQ/L (136-145) 155 MEQ/L (136-145) Serum Osmolality 334 MOSM/KG (275-295) 331 MOSM/KG (275-295) Imaging CT Head - Massive MCA infarction left side. PE at Discharge GENERAL: Well-developed, well-nourished, patient has decreased mental status, does not respond to verbal stimuli or have any purposeful movement. Patient responds to painful stimuli or reflexes HEENT: Head is normocephalic without any lesions or masses noted. Eyes: Conjunctivae were clear. NECK: Supple without any masses. Trachea midline no deviation. No JVD, CARDIAC: Regular rhythm, regular rate. S1/S2 are heard. No murmurs gallops or rubs. LUNGS: Clear to auscultation bilaterally. No wheeze, rhonchi or rales. No use of accessory muscles on inspiration or expiration. ABDOMEN: Soft, nontender. Nondistended. Bowel sounds heard in all 4 quadrants. No organomegaly or masses. Negative rebound, negative guarding EXTREMITIES: No edema, pulses are equal bilaterally. No cyanosis or clubbing NEUROLOGY: Patient with decreased mental status. Patient has good reflex response to the left side. However she is hyperextending her right ankle. Only reflex response to repeated plantar reflex of the right lower extremity Transfer Summary With no realistic hope for meaningful recovery the family has elected to withdraw artificial support and remove from ventilator. The patient at 1806 with the family at bedside. Palliative Care service assisted with the care. Hospital Course 10/21: 72-year-old female who recently presented to hospital on October 17, 2017 because sometime in the morning, her found her on the couch almost motionless, slouching in a reclining position. He attempted to stimulator but she only mild response. It was indicated that time that she was moving both her legs but did not notice any movement in her arms. The patient was unable to communicate and no coherent speech, was unable to follow commands. The last time that she is notably normal was the night prior to her going to bed. She had been treating herself for a head cold for approximately a week prior. She was seen in urgent care the day before coming to the hospital and prescribed some kind of antibiotic. As indicated that her blood glucoses were 400 at the urgent care center. Ambulance was called and the patient was brought to the emergency department for evaluation. Patient was not a candidate for TPA at that time due to unknown time frame of onset of symptoms. Patient had workup done in found to have significant hypertension, CT scan did show increased density involving the left MCA as compared to right which is concerning for acute thrombosis. Patient was admitted to the hospital for further evaluation and management. Patient had MRI, MRA performed which did show very large evolving left MCA CVA. Patient clinical condition did not improve, patient was still unable to communicate, unable to open eyes, pupils remained round and reactive to light. Patient was doing well and today on examination she actually hollowed commanded by gripping my hand with her left hand. Patient had been on Cardene and blood pressure medication has been adjusted to maintain systolic blood pressure 140-160. Nursing staff notified me that the patient had acute onset of bradycardia with heart rate in the 30s. At that time I notified Dr. Barton and stat CT was performed. CT did indicate significant worsening of the stroke with hemorrhagic conversion, midline shift. Patient was emergently intubated for airway support. Started hyperventilation to maintain End tidal CO2 30-36, 25 g mannitol IV given, head of bed raised at 45. Patient started on 2% saline solution with monitoring sodium every 6 hours. Stat consultation to neurosurgery was performed. I personally discussed the case with Amy, the PA that works with Dr. Tello. I discussed his case will time stamp assembler for Dr. Barton, Dr. Thompson. Stat transfer to the [facility] was requested. 10/22: Remains sedated, orally intubated on mechanical ventilation. Noted to have right pneumothorax on a.m. chest x-ray today for with right pigtail catheter placed by myself following which there was transient airleak was stopped within a minute of chest tube placement. On 2% saline which was held this morning and remains on mannitol. 10/23: No improvement in neurological function. Devastating defect on CT. ICP controlled at 7-8. Tapering off vasopressors. 10/24: Large completed stroke dominant hemisphere. [place] removed as ICP was well controlled. Continue EtCO2 monitoring. I have discussed prognosis in detail with her and son. They confirm DNR status and are waiting for other family to arrive. 10/25: No change or improvement. 10/26: No improvement after large dominant hemisphere stroke. Pt Condition on Discharge: Deteriorating Shaw Boykin MD Oct 27, 2017 08:14
== END 2017-10-26 19:18 | disposition expired | DRG 23 ==
LOC: PHED 08:03 → PHEDA 09:37 → PHICU 10:20 → N03A 10-21 16:01
PROVIDERS: ADMIT Internal Medicine Critical Care Medicine; ATTEND Internal Medicine Critical Care Medicine
PROC: 3E0F7GC Introduction of Other Therapeutic Substance into Respiratory Tract, Via Natural or Artificial Opening (ICD-10-PCS; 2017-10-17)
PROC: 0T9B70Z Drainage of Bladder with Drainage Device, Via Natural or Artificial Opening (ICD-10-PCS; 2017-10-17)
PROC: 0DH67UZ Insertion of Feeding Device into Stomach, Via Natural or Artificial Opening (ICD-10-PCS; 2017-10-18)
PROC: 00H032Z Insertion of Monitoring Device into Brain, Percutaneous Approach (ICD-10-PCS; principal; 2017-10-21)
PROC: 5A1945Z Respiratory Ventilation, 24-96 Consecutive Hours (ICD-10-PCS; 2017-10-21)
PROC: 4A103BD Monitoring of Intracranial Pressure, Percutaneous Approach (ICD-10-PCS; 2017-10-21)
PROC: 0BH17EZ Insertion of Endotracheal Airway into Trachea, Via Natural or Artificial Opening (ICD-10-PCS; 2017-10-21)
PROC: 05H533Z Insertion of Infusion Device into Right Subclavian Vein, Percutaneous Approach (ICD-10-PCS; 2017-10-21)
PROC: 0W9930Z Drainage of Right Pleural Cavity with Drainage Device, Percutaneous Approach (ICD-10-PCS; 2017-10-22)
DX: I63.512 Cerebral infarction due to unspecified occlusion or stenosis of left middle cerebral artery (principal); I61.9 Nontraumatic intracerebral hemorrhage, unspecified; J96.00 Acute respiratory failure, unspecified whether with hypoxia or hypercapnia; G93.6 Cerebral edema; G93.40 Encephalopathy, unspecified; J44.9 Chronic obstructive pulmonary disease, unspecified; E87.0 Hyperosmolality and hypernatremia; I95.9 Hypotension, unspecified; R13.10 Dysphagia, unspecified; R00.1 Bradycardia, unspecified; J93.9 Pneumothorax, unspecified; G81.91 Hemiplegia, unspecified affecting right dominant side; E11.9 Type 2 diabetes mellitus without complications; I45.10 Unspecified right bundle-branch block; I65.21 Occlusion and stenosis of right carotid artery; R47.01 Aphasia; F17.200 Nicotine dependence, unspecified, uncomplicated; I10 Essential (primary) hypertension; E78.5 Hyperlipidemia, unspecified; R29.810 Facial weakness; J00 Acute nasopharyngitis [common cold]; R00.0 Tachycardia, unspecified; Z80.49 Family history of malignant neoplasm of other genital organs; E87.6 Hypokalemia; Z78.1 Physical restraint status; Z51.5 Encounter for palliative care; Z66 Do not resuscitate
CPT/HCPCS: 31500; 36556; 36600; 36620; 51702; 61210; 70450; 70544; 70548; 70551; 71045; 74018; 76937; 80048; 80061; 80076; 81001; 82805; 82948; 83036; 83735; 83930; 84100; 84132; 84145; 84295; 84443; 85025; 85027; 85610; 85730; 87040; 87070; 87205; 87641; 87804; 93005; 93306; 94002; 94003; 94640; 94664; 94770; 95819; 96365; A9577; J0330; J1650; J1815; J1980; J2060; J2150; J2250; J2270; J2405; J3010; J3480; J7030; J7050